=== PATIENT | female | born 1955 | race Caucasian/White ===

== ENCOUNTER 2022-05-14 17:22 | Inpatient (IN) | payer OTHER ==
[~2022-05-14] VITALS: Ht 172.7 cm; Wt 57.2 kg
[2022-05-14 17:25] VITALS: BP_SYST 120
--- NOTE | 2022-05-14 17:25 | NUR ---
Patient triaged ON [place]. VSS and patient appears in no acute distress at this time. Accompanied by EMT'S , awaiting available bed, and MD notified of need for MSE.
[2022-05-14] MEDS ORDERED: NACL 0.9% 1,000 ML IV ONE ×2 (18:15→20:45)
[2022-05-14] MEDS ORDERED: KETOROLAC TROMETHAMINE 30 MG VIAL IVP ONE (18:15)
--- NOTE | 2022-05-14 18:30 | NUR ---
RECEIVED PT FROM PAIGE PERSON. PT HAS RECTAL PROLAPSE AND PAIN 9.10. RESP E/U. ON R/A. ABDOMEN SOFT, NONTENDER, NONDISTENDED. DENIES N/V. SKIN CDI, NO EDEMA. DISTAL PULSES NORMAL. IV CATH PLACED TO LFA 22G.
--- NOTE | 2022-05-14 18:35 | NUR ---
DR. SUNG AT BEDSIDE, ATTEMPTED TO PUSH IN PROLAPSE, BUT IT WOULD NOT MANTAIN POSITION.
[2022-05-14 18:37] LABS: BASOPHILS % (AUTO) 0.4 % (0.0-2.0); EOSINOPHILS # (AUTO) 0.1 K/uL (0.0-0.4); EOSINOPHILS % (AUTO) 1.5 % (0.0-4.0); HEMATOCRIT 32.9 % (36-48); HEMOGLOBIN 10.8 g/dL (12.0-16.0); LYMPHOCYTES # (AUTO) 0.3 K/uL (1.0-5.5); LYMPHOCYTES % (AUTO) 4.7 % (20.5-51.5); MEAN CORPUSCULAR HEMOGLOBIN 30 pg (27-31); MEAN CORPUSCULAR HGB CONC 33 % (32-36); MEAN CORPUSCULAR VOLUME 93 fL (79.0-98.0); MONOCYTES # (AUTO) 0.9 K/uL (0.0-1.0); MONOCYTES % (AUTO) 12.6 % (1.7-9.3); NEUTROPHILS # (AUTO) 5.6 K/uL (1.8-7.7); NEUTROPHILS % (AUTO) 80.8 % (40.0-70.0); PLATELET COUNT (AUTO) 275 K/uL (130-430); RED BLOOD CELL COUNT(AUTO) 3.55 MIL/uL (4.2-6.2); RED CELL DISTRIBUTION WIDTH 15.1 % (9.0-15.0); WHITE BLOOD COUNT (AUTO) 6.9 K/uL (4.8-10.8)
--- NOTE | 2022-05-14 18:37 | NUR ---
Placed in room 8 . Placed on satellite project site monitor, blood pressure machine and pulse oximeter. To gown for exam. Side rails up. Report given to PAIGE CROSS.
[2022-05-14 18:57] LABS: CALCIUM 9.8 mg/dL (8.4-11.0); CREATININE 0.79 mg/dL (0.55-1.30)
[2022-05-14 19:03] LABS: ALBUMIN 2.9 g/dL (3.4-4.8)
[2022-05-14 19:19] LABS: TOTAL BILIRUBIN 0.2 mg/dL (0.0-1.0)
--- NOTE | 2022-05-14 19:21 | NUR ---
PT ENDORSED TO PAIGE CRONIN.
[2022-05-14] MEDS ORDERED: MORPHINE 2 MG/ML INJ. SYRINGE IVP ONE ×2 (19:30→20:45)
--- NOTE | 2022-05-14 20:30 | NUR ---
PT AMBULATED TO THE RESTROOM, STEADY GAIT, NAD.
--- NOTE | 2022-05-14 21:08 | NUR ---
# 16 FR Monzon catheter with use of sterile technique. Immediate return of 500 cc YELLOW urine noted. Bedside drainage bag placed below level of bladder. Urine sample collected and sent to lab. Pt tolerated procedure WELL.
[2022-05-14 21:24] LABS: BILIRUBIN,URINE NEGATIVE (NEGATIVE); COLOR,URINE YELLOW (YELLOW); GLUCOSE,URINE NEGATIVE (NEGATIVE); KETONES,URINE NEGATIVE (NEGATIVE); LEUKOCYTE ESTERASE ,URINE 3+ (NEGATIVE); NITRITE, URINE POSITIVE (NEGATIVE); PROTEIN URINE TRACE (NEGATIVE); UROBILINOGEN,URINE 0.2 (0.2-1.0)
[2022-05-14 21:34] LABS: BLOOD, URINE TRACE (NEGATIVE); CLARITY/URINE HAZY (CLEAR)
[2022-05-14 21:35] LABS: BACTERIA,URINE FEW /HPF (None Seen); RBC,URINE NONE SEEN /HPF (0-3); WBC,URINE 50-80 /HPF (0-3)
[2022-05-14 21:36] LABS: MUCUS,URINE None Seen /LPF (None Seen)
--- NOTE | 2022-05-14 21:57 | NUR ---
Admit bed requested Patient will be admitted to care of Dr. DE JESUS. Admitted to MED SURG unit. Diagnosis COMPLETE RECTAL PROLAPSE Inpatient (Yes or No) YES Observation (Yes or No) NO Orientation concerns or request close to nursing station (Yes or No) NO Covid Status NEG On vent or bipap NO Isolation requirements NONE Needs a sitter NO From Home (Yes or if No enter name of facility) [facility] Requires Dialysis (Yes or No) NO Med Rec Completed (Yes of No) YES
--- NOTE | 2022-05-14 21:59 | NUR ---
Medication reconciliation UNABLE TO BE completed. NO PACKET SENT WITH PATIENT.
--- NOTE | 2022-05-14 22:33 | NUR ---
Transfer to [facility]. IV present no sign or symptom of infiltration. REPORT GIVEN TO DANIEL GIBSON, MOSES SENT WITH PATIENT
--- NOTE | 2022-05-14 22:33 | NUR ---
MRSA collected and sent to lab.
--- NOTE | 2022-05-14 23:15 | NUR ---
66 YO FEMALE PT RECEIVED FROM ER VIA [facility] WITH CHIEF COMPLAINT OF RECTAL PAIN AND DX OF COMPLETE RECTAL PROLAPSE. A/OX4. C/O SEVERE RECTAL PAIN. LARGE PINK/RED COLORED ROUND MASS EXTRUDING FROM RECTUM. ZAMORA TO GRAVITY FLOW WITH CLEAR DAVID URINE. LFA 22 GA WITH NS FINISHING PER GRAVITY DRIP. PT ARRIVING TO [place] BY WAY OF VENANCIO BOGGS. STATES SHE LIVES AT HOME AND DAUGHTER AND SON EAR TAKE 2 WEEKS TO STAY WITH HER AN ATTEND TO HER NEEDS. MONITOR AND ASSIST NEEDED.
[2022-05-14 23:27] VITALS: BP_SYST 140
[2022-05-14] MEDS: HYDROcodone/ACETAMIN 5-325 MG TAB (NORCO/ VICODIN) PO PRN (23:43)
[2022-05-15] VITALS: BP_SYST 137
--- NOTE | 2022-05-15 00:02 | NUR ---
CALL PLACED TO DR. DE JESUS CONCERNING MEDICINE ORDER FOR SEVERE PAIN AND MEDICATION RECON.
--- NOTE | 2022-05-15 01:50 | NUR ---
INFORMED HOUSE JASSON MÉNDEZ RETURN CALL FROM [employer]. INQUIRED IF THERE WERE A 2ND MD IN [place] OF COMMAND THAT COULD BE CONTACTED FOR MEDICATION ORDER FOR SEVERE PAIN FOR PT OR IF ER MD ABLE TO PRESCRIBE A ONE TIME ORDER. INFORMED BY JASSON "NO, KEEP CALLING [employer]". PT INFORMED. PROVIDED COMFORT MEASURES. ASSISTED TO BSC. HECTOR-CARE GIVEN. BACK TO BED. PT ATTEMPTING TO REST.
--- NOTE | 2022-05-15 02:00 | NUR ---
2ND CALL PLACED TO . NO RETURN CALL THUS FAR.
--- NOTE | 2022-05-15 04:00 | NUR ---
LIZA LOGAN RETURNED CALL. MEDS RECONCILED.
--- NOTE | 2022-05-15 04:10 | NUR ---
PT INFORMED NO MORPHINE APPROVED FOR SEVERE PAIN.
[2022-05-15] MEDS: ACETAMINOPHEN 650 MG/20.3 ML UDC PO SCH ×5 (04:30→20:30)
[2022-05-15] MEDS ORDERED: ACETAMINOPHEN 650 MG/20.3 ML UDC PO PRN (04:30)
[2022-05-15] MEDS ORDERED: TYLL650 PO (05:53)
[2022-05-15] MEDS ORDERED: DOCU-144 PO (05:53)
[2022-05-15] MEDS ORDERED: ANT30 PO (05:53)
[2022-05-15] MEDS ORDERED: SIN25 PO (05:53)
[2022-05-15] MEDS ORDERED: GABA-533 PO (05:53)
[2022-05-15] MEDS ORDERED: DIPH25CA83 PO ×2 (05:53)
[2022-05-15] MEDS ORDERED: IBUP-1970 PO (05:53)
[2022-05-15] MEDS ORDERED: MAGN24002 PO (05:53)
[2022-05-15] MEDS ORDERED: LORA-259 PO (05:53)
[2022-05-15] MEDS ORDERED: PRO40 PO (05:53)
[2022-05-15] MEDS ORDERED: DEUT6TAB PO (05:53)
[2022-05-15] MEDS ORDERED: QUET300T2 PO (05:53)
[2022-05-15] MEDS ORDERED: SER100 PO (05:53)
[2022-05-15] MEDS ORDERED: QUET200T PO (05:53)
--- NOTE | 2022-05-15 06:19 | NUR ---
CONSULTATION PAGED/CALLED Reason for Consultation: COMPLETE RECTAL PROLAPSE Person Who was Notified: ROSETTE Consulting Physician: TAYLA ANDREWS Equipment Services Associate Specialty: SURGEON Ordering Physician: DR. DE JESUS
[2022-05-15] MEDS: IBUPROFEN 800 MG TABLET PO PRN ×2 (06:51→14:43)
[2022-05-15] MEDS: QUEtiapine FUMARATE 100 MG TABLET PO SCH ×3 (06:52→20:24)
[2022-05-15] MEDS: LORazepam 1 MG TABLET PO SCH ×3 (06:52→20:24)
--- NOTE | 2022-05-15 07:00 | NUR ---
PT MED. WITH 0900 DOSE OF SEROQUEL, ATIVAN AND PRN MOTRIN. WILL ENDORSE TO A.M NURSE.
[2022-05-15 07:54] VITALS: BP_SYST 138
[2022-05-15] MEDS: GABAPENTIN 400 MG CAPSULE PO SCH ×3 (08:14→20:24)
[2022-05-15] MEDS: PANTOPRAZOLE SODIUM 40 MG TAB PO SCH (08:14)
[2022-05-15] MEDS: DOCUSATE SODIUM 100 MG CAPSULE PO SCH ×2 (08:14→20:23)
[2022-05-15 11:27] VITALS: BP_SYST 110
[2022-05-15] MEDS: HYDROcodone/ACETAMIN 5-325 MG TAB (NORCO/ VICODIN) PO PRN (11:49)
[2022-05-15] MEDS ORDERED: NALOXONE HCL 0.4 MG/ML AMP (NARCAN) IVP PRN (13:30)
[2022-05-15] MEDS ORDERED: MAGNESIUM HYDROXIDE 2400 MG PO PRN (13:30)
[2022-05-15] MEDS ORDERED: MILK OF MAGNESIA 30 ML UDC PO PRN (14:00)
--- NOTE | 2022-05-15 14:56 | NUR ---
0730 Pt. in bed, asleep, vss, call light in reach 0900 PT. given tylenol for pain, page to MD for stronger pain meds, pt. states the tylenol is not helping [address] Davalos, he is not going to give pt. any more pain meds, surgical consult by Dr. Burgos has been ordered. 1400 Pt. given afternoon meds and Motrin 800mg for pain, call liight in reach, vss.
[2022-05-15 15:32] VITALS: BP_SYST 118
[2022-05-15] MEDS: DIPHENHYDRAMINE HCL 25 MG CAPSULE PO PRN ×2 (17:08→20:56)
--- NOTE | 2022-05-15 18:25 | NUR ---
1800 Pt. met brandt Burgos, pt. to have colonoscopy tomorrow, prep to start tonight, npo after MN. PT. resting quietly, call light in reach.
[2022-05-15 20:00] VITALS: BP_SYST 122
[2022-05-15] MEDS: DOXEPINE (SINEQUAN) 25 MG CAP PO SCH (20:24)
[2022-05-15] MEDS ORDERED: GOLYTELY / COLYTE SOLUTION 4 LITERS PO ONE (20:30)
[2022-05-15] MEDS ORDERED: GOLYTELY / COLYTE SOLUTION 4 LITERS ONE (20:59)
[2022-05-15] MEDS: DEUTETRABENAZINE PO SCH (21:00)
[2022-05-15] MEDS ORDERED: DEUTETRABENAZINE PO SCH (21:00)
--- NOTE | 2022-05-15 22:00 | NUR ---
AIDA OBTAINED FROM [employer]. COLONOSCOPY PROTOCOL BEGAN. PT STATED PREFERS NOT HAVE COLONOSCOPY BUT HAVE PROLAPSED RECTUM CORRECTED ONLY. INSPITE PT DRINKING FLUID AND VENTING "HOW TERRIBLE THIS IS!"
--- NOTE | 2022-05-16 00:14 | NUR ---
PT STATED AT THIS TIME. "I AM NOT GOING TO HAVE THE COLONOSCOPY. CALL MY DOCTOR AND LET HIM KNOW...NO WAY AM I DRINKING ALL THAT."
--- NOTE | 2022-05-16 00:20 | NUR ---
DR COSTELLO INFORMED PT REFUSES TO COMPLETE PROTOCOL ORDERED BUT DOES EXPECT TO HAVE RECTAL PROLAPSE CORRECTED. INFORMED NURSE THAT THE PROTOCOL WILL BE FOLLOWED ORDERED AND RECTAL PROLAPSE PROCEDURE PERFORMED BUT NOT ONE OR THE OTHER.
[2022-05-16] MEDS: ACETAMINOPHEN 650 MG/20.3 ML UDC PO SCH ×5 (00:30→16:30)
--- NOTE | 2022-05-16 00:30 | NUR ---
PT INFORMED OF DOCTOR PRAVIN'S RESPONSE TO HER DECISION TO NOT COMPLETE PROTOCOL. PT QUICKLY STATED "OK I WILL DRINK THE FLUIDS AND COMPLETE IT SO I CAN HAVE THIS RECTAL PROBLEM FIXED.
--- NOTE | 2022-05-16 03:30 | NUR ---
NOTED PT STATED "I'M ALMOST FINISHED". UPON CLOSE INSPECTION NOTED PT FLOOR SATURATED WITH CLEAR FLUID ON SIDES AND HEAD OF BED SO MUCH SO MY SNEAKERS WERE WALKING IN A HUGE PUDDLE THAT SEEPED UNDER THE BASE BOARDS. I TOLD THE PT HER GOLYTELY WAS ON THE FLOOR INSTEAD OF IN HER BODY. PT WAS ADAMANT THAT SHE DRANK IT "ALL"...WELL THAT WAS UNTILL A FEW MINUTES LATER I BEGAN TO CLEAR OFF HER NIGHT STAND. LOW AND FARRAH WHEN I OPENED THE TOP DRAWER TO PLACE SOME ARTICLES INSIDE THERE WAS FREE WATER SLOSHING AROUND INSIDE THE DRAWER! I LOOKED AT THE PT AND SAID TO HER THIS IS WHERE YOUR FLUIDS HAVE GONE INSTEAD OF IN YOUR BODY ISN'T IT TRUE. SHE SOMEWHAT CONFESSED AND SAID..."BUT I DRANK 'MOST' OF IT...WILL THE DOCKTOR STILL DO THE PROCEDURE?" INFORMED CHARGE NURSE OF THE EVENTS. WILL CONTINUE WITH PREP THOU SHE IS GOING. REMAINS NPO, CHECKLIST AND CHG BATH BEFORE SHIFT END AND ENDORSE TO ON-COMING NURSE.
[2022-05-16 04:00] VITALS: BP_SYST 118
--- NOTE | 2022-05-16 07:30 | NUR ---
PM CLOSING NOTES REPORTED ON A.M NURSE PT NON-COMPLIANT WITH COLONOSCOPY PREP BUT FOLLOWED THRU IN KEEPING HER NPO, CHG COMPLETED AND CHECKLIST DONE. INFORMED HER MD AWARE OF PT REFUSAL OF FLUIDS. ALSO INFORMED OF PT REFUSAL TO USE CALL LIGHT FOR ASST ON BSC AND IS AN EXTREMELY HIGH RISK FOR FALL, INSPITE OF MYSELF,CHARGE NURSE, AND RAMANA CATCHING HER GETTING OOB HAPHAZARDLY TRANSFERING TO BSC ALONE WITH ALARM SOUNDING. 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 RELINQUISHED CARE OF PT AT THIS TIME.
[2022-05-16 08:00] VITALS: BP_SYST 100
--- NOTE | 2022-05-16 08:00 | NUR ---
Initial notes Awake,complain of pain on her back,lower abdomen. will medicate.No distress
[2022-05-16] MEDS: QUEtiapine FUMARATE 100 MG TABLET PO SCH ×3 (08:21→21:00)
[2022-05-16] MEDS: PANTOPRAZOLE SODIUM 40 MG TAB PO SCH (08:21)
[2022-05-16] MEDS: GABAPENTIN 400 MG CAPSULE PO SCH ×3 (08:21→21:00)
[2022-05-16] MEDS: LORazepam 1 MG TABLET PO SCH ×3 (08:22→21:00)
[2022-05-16] MEDS: HYDROcodone/ACETAMIN 10-325 MG TAB PO PRN ×2 (08:23→12:29)
[2022-05-16] MEDS: DEUTETRABENAZINE PO SCH ×2 (08:24→21:00)
[2022-05-16] MEDS: DOCUSATE SODIUM 100 MG CAPSULE PO SCH ×2 (08:24→21:00)
[2022-05-16] MEDS ORDERED: GOLYTELY / COLYTE SOLUTION 4 LITERS PO ONE (10:00)
--- NOTE | 2022-05-16 11:30 | NUR ---
Notes Ernestoly Started.
[2022-05-16 12:00] VITALS: BP_SYST 125
--- NOTE | 2022-05-16 13:49 | NUR ---
Notes Patient s been drinking the golytely, has incontinent of stool. cleaned patient and repositioned.
[2022-05-16 16:00] VITALS: BP_SYST 140
[2022-05-16] MEDS: IBUPROFEN 800 MG TABLET PO PRN (16:38)
--- NOTE | 2022-05-16 17:17 | NUR ---
Dietitian Recommendations * Continue CLD, per MD * Encourage good PO * When medically appropriate, advance to GI soft Diet + ONS TID * Recommend daily MVI Please refer to Nutrition Assessment for details, thanks! CC, MPH, RDN
--- NOTE | 2022-05-16 17:33 | NUR ---
Notes/ Golytely Patient is drinking her golytely, stool is loose but still with sediments. Patient drinks about 2L already.
[2022-05-16] MEDS: OXYCODONE/ACETAMINOPHEN 5-325 TABLET PO PRN (18:32)
--- NOTE | 2022-05-16 19:30 | NUR ---
PM OPENING NOTES HAND-OFF REPORT FROM JORDYN REYNOSO: REPORTED DR. COSTELLO STARTED ON GOLYTLEY AT NOON. BM LOOSE WITH SEDIMENTATION. PT COMPLIANT IN TAKING DRINK. FLOOR REMAINS DRY THRU OUT DAY. ZAMORA DISLOGED AND REPLACED. DR. HO NOW ON CASE NOT KADHIUM. NPO AFTER MIDNIGHT FOR COLONOSCOPY IN A.M UA POSITIVE MANY BACTERIA. PT RECEIVED LOOSE STOOLS WITH FRQUENT BED CHANGES. COMPLIANT IN NOT GETTING OOB. CONT TO ASSIST.
[2022-05-16 20:00] VITALS: BP_SYST 138
[2022-05-16] MEDS: DOXEPINE (SINEQUAN) 25 MG CAP PO SCH (21:00)
[2022-05-17] VITALS (7 sets, daily range): BP systolic 118–155
--- NOTE | 2022-05-17 08:00 | NUR ---
INITIAL NOTES AWAKE, COMPLAINS OF LOWER ABDOMINAL PAIN, KEEP NPO FOR COLONOSCOPY TODAY. SAFETY PRECAUTION, CALL LIGHT WITHIN REACH.
[2022-05-17] MEDS: OXYCODONE/ACETAMINOPHEN 5-325 TABLET PO PRN ×3 (08:45→22:18)
[2022-05-17] MEDS: LORazepam 1 MG TABLET PO SCH ×3 (08:45→22:15)
[2022-05-17] MEDS: PANTOPRAZOLE SODIUM 40 MG TAB PO SCH (08:47)
[2022-05-17] MEDS: GABAPENTIN 400 MG CAPSULE PO SCH ×3 (08:47→22:15)
[2022-05-17] MEDS: DOCUSATE SODIUM 100 MG CAPSULE PO SCH ×2 (08:47→22:15)
[2022-05-17] MEDS: DEUTETRABENAZINE PO SCH ×2 (08:47→21:00)
[2022-05-17] MEDS: QUEtiapine FUMARATE 100 MG TABLET PO SCH ×3 (09:00→22:16)
[2022-05-17 09:51] LABS: CALCIUM 8.5 mg/dL (8.4-11.0); CREATININE 0.63 mg/dL (0.55-1.30)
--- NOTE | 2022-05-17 10:43 | NUR ---
HIGH ALERT NOTE: Called Dr. Vega back at identified within the medical roster to verify physician authenticity.
[2022-05-17] MEDS ORDERED: POTASSIUM CHLORIDE 40 MEQ in NS 250 ML IV ONE (10:45)
[2022-05-17] MEDS ORDERED: POTASSIUM CHLORIDE 20 MEQ TAB.PRT.SR PO ONE (10:45)
[2022-05-17] MEDS: IBUPROFEN 800 MG TABLET PO PRN (11:11)
--- NOTE | 2022-05-17 11:20 | NUR ---
SEGUNDO LOGAN- SPOKE TO DR. COSTELLO AND MADE AWARE TO CALL OR IF HE WANTS TO SCHEDULE COLONOSCOPY TODAY. ALSO MADE AWARE THAT PATIENT IS NPO EXCEPT MEDS AND MADE AWARE OF LABS.
[2022-05-17] MEDS: KCL 20 mEq in D5/0.45NS 1000mL 1,000 ML IV SCH (11:46)
[2022-05-17] MEDS: cefTRIAXone 1 GM in D5W 50 ML IV SCH (13:01)
--- NOTE | 2022-05-17 13:15 | NUR ---
PAGED PAGEMaurice VILLATORO REGARDING PT'S DIET. AWAITING RESPONSE.
--- NOTE | 2022-05-17 14:22 | NUR ---
Notes- colonoscopy will be done tomorrow 05/20/22 at 1330. will order clear liquid diet as ordered.
--- NOTE | 2022-05-17 18:37 | NUR ---
CLOSING NOTE PT IN BED EATING DINNER. BREATHING EVEN, REGULAR, AND NONLABORED WITH O2 VIA NC. IV RUNNING ORDERED WITH SITE KEPT CLEAN AND PATENT. ZAMORA CATHETER DRAINING BY GRAVITY. ENCOURAGE TO USE THE CALL LIGHT FOR ASSISTANCE. SAFETY PRECAUTION IN PLACED. CALL LIGHT WITHIN REACH
[2022-05-17] MEDS ORDERED: LevALBUTEROL HCL 1.25 MG/0.5 ML *CONC.* VIAL.NEB (XOPENEX CONC.) INH ONE (20:00)
--- NOTE | 2022-05-17 20:00 | NUR ---
PM OPENING NOTES HAND-OFF REPORT RECEIVED FROM A.M. NURSE. REPORTED COLONOSCOPY IN A.M., NPO AFTER MN. POTASSIUM 2.9. 80 MEQ REPLACED. (40 PO AND 40 IV). D51/2 NS WITH 20 KCL @75. ZAMORA CONTINUED TO GRAVITY FLOW. ROCEPHIN STARTED FOR UTI. CLEAR LIQUIDS PRESENTLY. PT REQUESTING BREATHING TREATMENTS FOR SMOKERS COUGH. RECEIVED AOX3 IN BED. CONTINUES TO EXPELS MUCOID LIGHT COLORED STOOLS. CONT WITH PREP AND PROTOCOL. ON SCHEDULE FOR APPROX 1300 TOMORROW.
[2022-05-17] MEDS: DIPHENHYDRAMINE HCL 25 MG CAPSULE PO PRN (22:13)
[2022-05-17] MEDS: DOXEPINE (SINEQUAN) 25 MG CAP PO SCH (22:16)
[2022-05-18] MEDS: KCL 20 mEq in D5/0.45NS 1000mL 1,000 ML IV SCH ×2 (00:05→14:33)
[2022-05-18] MEDS: LevALBUTEROL HCL 1.25 MG/0.5 ML *CONC.* VIAL.NEB (XOPENEX CONC.) INH SCH ×3 (02:21→15:00)
[2022-05-18 04:00] VITALS: BP_SYST 113
--- NOTE | 2022-05-18 07:30 | NUR ---
PM CLOSING NOTES HAND-OFF REPORT TO A.M ON COMING NURSE. INFORMED CHECKLIST NEED FINAL V/S AND CHG BATH CLOSER SCHEDULED TIME. PT QUIETLY RESTING IN BED. BED ALRM ON ALL TIMES. RELINQUISHING CARE OF PT AT THIS TIME.
--- NOTE | 2022-05-18 08:00 | NUR ---
Opening Note: Received report from PAIGE Rene. Pt. is AAOX4 no signs of acute distress. Pt. has a grapefruit sized rectal protrusion which is pink and moist, no bleeding. Pt. is reporting pain and MD has been paged for PRN medications. Fall precautions in place, bed locked and in lowest position, bed alarm on, side rails x3 and call light is within reach.
[2022-05-18 08:02] LABS: CALCIUM 8.5 mg/dL (8.4-11.0); CREATININE 0.65 mg/dL (0.55-1.30); PHOSPHORUS 3.1 mg/dL (2.7-4.5)
[2022-05-18 08:23] VITALS: BP_SYST 120
[2022-05-18] MEDS: QUEtiapine FUMARATE 100 MG TABLET PO SCH ×3 (09:00→23:17)
[2022-05-18] MEDS: DEUTETRABENAZINE PO SCH ×2 (09:00→21:00)
[2022-05-18] MEDS: GABAPENTIN 400 MG CAPSULE PO SCH ×3 (09:00→23:17)
[2022-05-18] MEDS: DOCUSATE SODIUM 100 MG CAPSULE PO SCH ×2 (09:00→23:17)
[2022-05-18] MEDS: PANTOPRAZOLE SODIUM 40 MG TAB PO SCH ×2 (09:00→14:27)
--- NOTE | 2022-05-18 09:39 | NUR ---
HIGH ALERT NOTE: Called Dr. DE JESUS back at [phone] identified within the medical roster to verify physician authenticity.
[2022-05-18] MEDS ORDERED: MORPHINE 2 MG/ML INJ. SYRINGE IVP ONE (09:45)
[2022-05-18] MEDS: LevALBUTEROL HCL 1.25 MG/0.5 ML *CONC.* VIAL.NEB (XOPENEX CONC.) INH PRN (10:12)
[2022-05-18] MEDS: LORazepam 1 MG TABLET PO SCH ×3 (10:12→21:00)
[2022-05-18] MEDS: cefTRIAXone 1 GM in D5W 50 ML IV SCH (12:10)
--- NOTE | 2022-05-18 12:30 | NUR ---
GAS AND OIL SERVICER ACSW Camila consulted with assigned RN Marlene who shared patient's daughter in law Anel and son Dieter had disclosed to RN patient has been evicted from her condo in [place]. ACSW attempted to meet with patient, due to patient's hosptial roommate needing privacy at the moment, ACSW will attempt contact at a later time. ACSW will continue to be available as needed.
--- NOTE | 2022-05-18 12:38 | NUR ---
FREIGHT ASSOCIATE ACSW Camila contacted Moriah Cunningham to inquire into status of patient. According to Angelica in intake, patient was not on a hold and officially discharged once admitted into [facility]. ACSW attempted to obtain additional pertinent information related to mental health, but she shared due to being in intake she did not have that information at this time. Angelica shared if patient felt continued need for inpatient psych services, a packet would need to be sent for review when ready for discharge. ACSW will continue to be available as needed.
--- NOTE | 2022-05-18 12:39 | NUR ---
pt. has left for colonoscopy, no signs of acute distress, aaox4 being transported by [facility].
[2022-05-18 12:46] VITALS: BP_SYST 153
[2022-05-18] MEDS ORDERED: fentaNYL CITRATE/PF 100 MCG/2 ML AMP ONE (12:52)
[2022-05-18] MEDS ORDERED: MIDAZOLAM HCL 5 MG/5 ML VIAL ONE ×2 (12:52→13:14)
[2022-05-18 14:05] LABS: HEMATOCRIT 31.8 % (36-48); HEMOGLOBIN 10.4 g/dL (12.0-16.0); MEAN CORPUSCULAR HEMOGLOBIN 31 pg (27-31); MEAN CORPUSCULAR HGB CONC 33 % (32-36); MEAN CORPUSCULAR VOLUME 94 fL (79.0-98.0); PLATELET COUNT (AUTO) 245 K/uL (130-430); RED BLOOD CELL COUNT(AUTO) 3.39 MIL/uL (4.2-6.2); RED CELL DISTRIBUTION WIDTH 14.9 % (9.0-15.0); WHITE BLOOD COUNT (AUTO) 3.9 K/uL (4.8-10.8)
[2022-05-18 14:06] LABS: BASOPHILS % (AUTO) 1.3 % (0.0-2.0); EOSINOPHILS # (AUTO) 0.1 K/uL (0.0-0.4); EOSINOPHILS % (AUTO) 2.2 % (0.0-4.0); LYMPHOCYTES # (AUTO) 0.9 K/uL (1.0-5.5); LYMPHOCYTES % (AUTO) 24.3 % (20.5-51.5); MONOCYTES # (AUTO) 0.5 K/uL (0.0-1.0); MONOCYTES % (AUTO) 13.5 % (1.7-9.3); NEUTROPHILS # (AUTO) 2.3 K/uL (1.8-7.7); NEUTROPHILS % (AUTO) 58.7 % (40.0-70.0)
[2022-05-18] MEDS: IBUPROFEN 800 MG TABLET PO PRN (14:25)
[2022-05-18] MEDS: OXYCODONE/ACETAMINOPHEN 5-325 TABLET PO PRN ×2 (14:26→23:19)
[2022-05-18 15:35] VITALS: BP_SYST 146
--- NOTE | 2022-05-18 16:27 | NUR ---
Mid shift Note: Pt. is AAOx4, pain is being managed by prn pain medication. Colonoscopy was completed today and tomorrow pt. is scheduled for further surgery. Pt. still has grapefruit sized protrusion from rectal area which is pink and moist. Fall precautions in place and pt. is tolerating a clear liquid diet.
[2022-05-18] MEDS ORDERED: NALOXONE HCL 0.4 MG/ML AMP (NARCAN) IVP PRN (16:30)
--- NOTE | 2022-05-18 19:41 | NUR ---
Closing Note: Full SBAR report given to PAIGE Rene. Pt. is AAOx4 no reports of pain at this time. Fall precautions in place.
[2022-05-18 20:00] VITALS: BP_SYST 132
[2022-05-18] MEDS: DIPHENHYDRAMINE HCL 25 MG CAPSULE PO PRN (23:17)
[2022-05-18] MEDS: DOXEPINE (SINEQUAN) 25 MG CAP PO SCH (23:17)
[2022-05-19 00:23] VITALS: BP_SYST 106
[2022-05-19] MEDS: LevALBUTEROL HCL 1.25 MG/0.5 ML *CONC.* VIAL.NEB (XOPENEX CONC.) INH SCH ×4 (01:18→23:24)
[2022-05-19 04:00] VITALS: BP_SYST 132
--- NOTE | 2022-05-19 07:29 | NUR ---
Opening Note: Received full SBAR report from PAIGE Rene. Pt. is AAOx3 but needs re-orientation on the date. Pt. is impulsive and has been educated on fall precautions. Fall precautions in place, brake set, bed rails up x3, call light within reach and bed alarm set. Rectal protrusion is visible, pink and moist and about the size of a grapefruit.
[2022-05-19 08:30] VITALS: BP_SYST 115
[2022-05-19] MEDS: DEUTETRABENAZINE PO SCH ×2 (09:00→20:52)
[2022-05-19] MEDS: OXYCODONE/ACETAMINOPHEN 5-325 TABLET PO PRN (10:24)
[2022-05-19] MEDS: QUEtiapine FUMARATE 100 MG TABLET PO SCH ×3 (10:24→20:50)
[2022-05-19] MEDS: DOCUSATE SODIUM 100 MG CAPSULE PO SCH ×2 (10:24→20:52)
[2022-05-19] MEDS: PANTOPRAZOLE SODIUM 40 MG TAB PO SCH (10:24)
[2022-05-19] MEDS: LORazepam 1 MG TABLET PO SCH ×3 (10:25→20:51)
[2022-05-19] MEDS: GABAPENTIN 400 MG CAPSULE PO SCH ×3 (10:25→20:51)
[2022-05-19] MEDS: MORPHINE 2 MG/ML INJ. SYRINGE IVP PRN ×2 (11:58→17:03)
[2022-05-19 14:05] VITALS: BP_SYST 127
[2022-05-19] MEDS: IBUPROFEN 800 MG TABLET PO PRN (14:36)
[2022-05-19] MEDS: KCL 20 mEq in D5/0.45NS 1000mL 1,000 ML IV SCH (14:37)
[2022-05-19] MEDS: cefTRIAXone 1 GM in D5W 50 ML IV SCH (14:40)
--- NOTE | 2022-05-19 17:30 | NUR ---
Nutrition F/U Admitting Diagnosis Complete Rectal Prolapse Reviewed Pertinent Medical/Surgical Hx Medical Record Primary RN Medical History Comment: Per EMR: 66y female who transferred from [facility] for evaluation/ treatment of rectal prolapse. Patient found with anemia and COPD. Patient is pending colonoscopy and prolapse treatment. Visual NFPE completed d/t patient falling asleep during interview plus seen with blankets covering the bottom half of her body: Moderate - Severe fat loss: orbitals and triceps Moderate - Severe muscle wasting: temples, clavicles, and shoulders -- PMHx: long history of psychological disorder, chronic smoker -- Sx Hx: tummy tuck, silicone breast implants Subjective Information: Per EMR review, colonoscopy exam completed on 05/18/22 was unsatisfactory d/t improper cleaning of the bowel. Pt will need to be re-scoped after proper cleaning. Per MD, pt will continue to take medication and follow diet. During rounding, RD spoke with RN -- she reported that pt is to continue on clear liquid, no red diet until re-scope is complete, and possible plans for Sx next week. No current plans for nutrition support, RN will F/U with MD. Current Diet Order/Nutrition Support Clear Liquid, No red x4 days Patient/Significant Other Able To Verbalize Education Provided Not Indicated Pertinent Medications Reviewed Pertinent Labs RBC 3.5 (L), H/H 10.8/32.9 (L), BG 87, alb 2.9 (L) Height (Feet) 5 feet Height (Inches) 8.00 inches Weight (Pounds) 126 pounds -- stable since 05/16 Patient Weight 57.153 kg Body Mass Index 19.16 kg/m2 Usual Weight 150 lbs %UBW 84 %IBW 90 [place]/Adjusted Body Weight 140 lbs/ 64kg Recent Weight Change Yes - Severe wt loss: 16% (24 lbs) x 6 months, Unintentional Weight Status Underweight Gastrointestinal Symptoms Diarrhea Last BM 05/17 x2 Food Allergies No Usual Diet At Home Regular Skin Integrity Comment: Venancio Wilson: No problems identified via EMR Current % PO Fair (50-74%) NEW Estimated Energy Expenditure (kcals/day) 4131-4534 (30-35 kcal/kg IBW d/t GERIAT, BMI <21) Estimated Protein Required (g/day) 64-96 (1-1.5 g/kg IBW d/t GERIAT, BMI <21) NEW Estimated Fluid Required (l/day) 2-2.2 (1mL/kcal for maintenance) Problem/Etiology/Signs/Symptoms * Severe unintentional weight loss r/t suspected group home inadequate oral intake a/e/b patient endorses 24lb and 16% weight loss x 6 months. *Ongoing * Inadequate oral intake r/t clear liquid diet order a/e/b CLD provides 1531 kcal/day and 50g pro/day; 89% estimated energy needs and 78% estimated pro/day. *Ongoing Expected Outcomes/Goals PO intake provides >85% estimated nutrient needs, slow wt gain w/in 1-2lbs per wk, skin integrity, nutrition-related labs trending WNL, improvements in bowel function, BM q1-3 days Dietitian Recommendations * Continue clear liquid, no red diet, per MD * Encourage good PO * Consider alternative nutrition support if PO diet is not advanced within 7 days. * When medically appropriate, advance to GI soft Diet + ONS TID * Recommend daily MVI Follow Up High Risk: F/U in 2-3 days
--- NOTE | 2022-05-19 17:35 | NUR ---
Dietitian Recommendations * Continue clear liquid, no red diet, per MD * Encourage good PO * Consider alternative nutrition support if PO diet is not advanced within 7 days. * When medically appropriate, advance to GI soft Diet + ONS TID * Recommend daily MVI LP, MS, RD Please refer to Nutrition F/U for details.
--- NOTE | 2022-05-19 19:30 | NUR ---
PM OPENING NOTES HANDOFF REPORT RECEIVED FROM MACO GIBSON: "PT REMOVED IV RESTARTED IN LEFT THUMB BY ER NURSE AFTER MANY OTHERS ATTEMPTED. ORDER MIDLINE PLACEMENT FOR 05/20/22. SURGERY (NO CONSENT SPECIFIED YET) FOR SUNDAY OR .TO KEEP POTASSIUM GOING (IN SPITE K NOW 4.5) ALONG WITH CLEAR LIQUID DIET. CONTACT PRECAUTION FOR MRSA IN NARES.
[2022-05-19 20:00] VITALS: BP_SYST 131
[2022-05-19] MEDS: DOXEPINE (SINEQUAN) 25 MG CAP PO SCH (20:51)
[2022-05-19] MEDS: DIPHENHYDRAMINE HCL 25 MG CAPSULE PO PRN (20:51)
[2022-05-20 04:00] VITALS: BP_SYST 137
[2022-05-20] MEDS: KCL 20 mEq in D5/0.45NS 1000mL 1,000 ML IV SCH ×3 (05:21→18:45)
[2022-05-20] MEDS: OXYCODONE/ACETAMINOPHEN 5-325 TABLET PO PRN ×2 (05:27→17:06)
[2022-05-20] MEDS: LevALBUTEROL HCL 1.25 MG/0.5 ML *CONC.* VIAL.NEB (XOPENEX CONC.) INH SCH ×2 (07:00→15:00)
--- NOTE | 2022-05-20 07:30 | NUR ---
PM CLOSING NOTES HAND-OFF REPORT TO PEDRO GIBSON OF FORE-MENTIONED ITEMS. STRESSED THIS PATIENT IS MENTALLY UNABLE TO HOLD ONTO SIMPLE COMMANDS IE. "NOT TO GET OOB." MAKING HER A HAZARD TO HERSELF WITHOUT DIRECT OBSERVATION. RELINQUISHED CARE OF PT AT THIS TIME...
[2022-05-20 08:00] VITALS: BP_SYST 97
[2022-05-20] MEDS: MORPHINE 2 MG/ML INJ. SYRINGE IVP PRN (09:24)
[2022-05-20] MEDS: DOCUSATE SODIUM 100 MG CAPSULE PO SCH (09:25)
[2022-05-20] MEDS: LORazepam 1 MG TABLET PO SCH ×2 (09:25→17:18)
[2022-05-20] MEDS: GABAPENTIN 400 MG CAPSULE PO SCH ×2 (09:25→17:18)
[2022-05-20] MEDS: PANTOPRAZOLE SODIUM 40 MG TAB PO SCH (09:26)
[2022-05-20] MEDS: QUEtiapine FUMARATE 100 MG TABLET PO SCH ×2 (09:26→17:28)
[2022-05-20 11:30] VITALS: BP_SYST 107
[2022-05-20] MEDS: cefTRIAXone 1 GM in D5W 50 ML IV SCH (13:08)
[2022-05-20] MEDS: DEUTETRABENAZINE PO SCH ×2 (13:10→21:00)
[2022-05-20 15:21] VITALS: BP_SYST 120
[2022-05-20 20:00] VITALS: BP_SYST 129
[2022-05-21] MEDS: LevALBUTEROL HCL 1.25 MG/0.5 ML *CONC.* VIAL.NEB (XOPENEX CONC.) INH SCH ×4 (00:01→23:19)
[2022-05-21] MEDS: QUEtiapine FUMARATE 100 MG TABLET PO SCH ×5 (00:02→23:02)
[2022-05-21] MEDS: LORazepam 1 MG TABLET PO SCH ×4 (00:09→21:00)
[2022-05-21] MEDS: IBUPROFEN 800 MG TABLET PO PRN ×3 (00:11→23:00)
[2022-05-21] MEDS: DOXEPINE (SINEQUAN) 25 MG CAP PO SCH ×2 (00:12→22:58)
[2022-05-21] MEDS: GABAPENTIN 400 MG CAPSULE PO SCH ×4 (00:14→23:00)
[2022-05-21] MEDS: DOCUSATE SODIUM 100 MG CAPSULE PO SCH ×3 (00:14→22:58)
[2022-05-21] MEDS: DIPHENHYDRAMINE HCL 25 MG CAPSULE PO PRN ×2 (00:16→23:01)
[2022-05-21 04:51] VITALS: BP_SYST 95
[2022-05-21 08:00] VITALS: BP_SYST 112
[2022-05-21 08:26] LABS: PROTHROMBIN TIME 9.7 SECS (9.5-12.5)
[2022-05-21 08:34] LABS: BASOPHILS % (AUTO) 0.5 % (0.0-2.0); EOSINOPHILS # (AUTO) 0.2 K/uL (0.0-0.4); EOSINOPHILS % (AUTO) 5.1 % (0.0-4.0); HEMATOCRIT 32.2 % (36-48); LYMPHOCYTES # (AUTO) 1.3 K/uL (1.0-5.5); LYMPHOCYTES % (AUTO) 35.4 % (20.5-51.5); MEAN CORPUSCULAR VOLUME 91 fL (79.0-98.0); MONOCYTES # (AUTO) 0.5 K/uL (0.0-1.0); MONOCYTES % (AUTO) 12.8 % (1.7-9.3); NEUTROPHILS # (AUTO) 1.7 K/uL (1.8-7.7); NEUTROPHILS % (AUTO) 46.2 % (40.0-70.0); PLATELET COUNT (AUTO) 281 K/uL (130-430); RED BLOOD CELL COUNT(AUTO) 3.53 MIL/uL (4.2-6.2); RED CELL DISTRIBUTION WIDTH 14.5 % (9.0-15.0); WHITE BLOOD COUNT (AUTO) 3.7 K/uL (4.8-10.8)
[2022-05-21 09:00] LABS: CALCIUM 8.9 mg/dL (8.4-11.0); CREATININE 0.74 mg/dL (0.55-1.30); TOTAL BILIRUBIN 0.2 mg/dL (0.0-1.0)
[2022-05-21] MEDS: PANTOPRAZOLE SODIUM 40 MG TAB PO SCH (09:09)
[2022-05-21 09:16] VITALS: BP_SYST 95
[2022-05-21] MEDS: OXYCODONE/ACETAMINOPHEN 5-325 TABLET PO PRN ×2 (09:18→22:59)
[2022-05-21] MEDS: DEUTETRABENAZINE PO SCH ×2 (09:26→21:00)
[2022-05-21] MEDS: cefTRIAXone 1 GM in D5W 50 ML IV SCH (11:00)
[2022-05-21 16:31] LABS: INR 0.9 (0.8-1.2); PROTHROMBIN TIME 9.6 SECS (9.5-12.5)
[2022-05-21 20:00] VITALS: BP_SYST 128
[2022-05-22] VITALS: BP_SYST 93
[2022-05-22 05:05] VITALS: BP_SYST 98
[2022-05-22 07:34] LABS: BASOPHILS % (AUTO) 0.9 % (0.0-2.0); EOSINOPHILS # (AUTO) 0.3 K/uL (0.0-0.4); EOSINOPHILS % (AUTO) 7.4 % (0.0-4.0); HEMATOCRIT 30.5 % (36-48); LYMPHOCYTES # (AUTO) 1.7 K/uL (1.0-5.5); LYMPHOCYTES % (AUTO) 39.5 % (20.5-51.5); MEAN CORPUSCULAR VOLUME 91 fL (79.0-98.0); MONOCYTES # (AUTO) 0.5 K/uL (0.0-1.0); NEUTROPHILS # (AUTO) 1.7 K/uL (1.8-7.7); NEUTROPHILS % (AUTO) 40.2 % (40.0-70.0); PLATELET COUNT (AUTO) 303 K/uL (130-430); RED BLOOD CELL COUNT(AUTO) 3.36 MIL/uL (4.2-6.2); RED CELL DISTRIBUTION WIDTH 14.6 % (9.0-15.0); WHITE BLOOD COUNT (AUTO) 4.2 K/uL (4.8-10.8)
[2022-05-22 08:00] VITALS: BP_SYST 111
[2022-05-22 08:09] LABS: CALCIUM 8.9 mg/dL (8.4-11.0); CREATININE 0.69 mg/dL (0.55-1.30)
[2022-05-22] MEDS: LevALBUTEROL HCL 1.25 MG/0.5 ML *CONC.* VIAL.NEB (XOPENEX CONC.) INH SCH ×3 (08:40→23:00)
[2022-05-22] MEDS: QUEtiapine FUMARATE 100 MG TABLET PO SCH ×2 (09:03→12:55)
[2022-05-22] MEDS: GABAPENTIN 400 MG CAPSULE PO SCH ×3 (09:03→22:41)
[2022-05-22] MEDS: DOCUSATE SODIUM 100 MG CAPSULE PO SCH ×2 (09:03→22:40)
[2022-05-22] MEDS: PANTOPRAZOLE SODIUM 40 MG TAB PO SCH (09:03)
[2022-05-22] MEDS: LORazepam 1 MG TABLET PO SCH ×3 (09:04→22:42)
[2022-05-22] MEDS: OXYCODONE/ACETAMINOPHEN 5-325 TABLET PO PRN ×3 (09:04→22:41)
[2022-05-22] MEDS: KCL 20 mEq in D5/0.45NS 1000mL 1,000 ML IV SCH (10:45)
[2022-05-22] MEDS: cefTRIAXone 1 GM in D5W 50 ML IV SCH (11:00)
[2022-05-22] MEDS: DEUTETRABENAZINE PO SCH ×2 (11:13→21:00)
[2022-05-22 11:30] VITALS: BP_SYST 140
[2022-05-22 15:28] VITALS: BP_SYST 108
--- NOTE | 2022-05-22 17:03 | NUR ---
Nutrition F/U Admitting Diagnosis: Complete Rectal Prolapse Reviewed Pertinent Medical/Surgical Hx Medical Record; Patient Medical History Comment: Per EMR: 66y female who transferred from [facility] for evaluation/ treatment of rectal prolapse. Patient found with anemia and COPD. Patient is pending colonoscopy and prolapse treatment. Visual NFPE completed d/t patient falling asleep during interview plus seen with blankets covering the bottom half of her body: Moderate - Severe fat loss: orbitals and triceps; Moderate - Severe muscle wasting: temples, clavicles, and shoulders -- PMHx: long history of psychological disorder, chronic smoker -- Sx Hx: tummy tuck, silicone breast implants Subjective Information: Per EMR review, colonoscopy exam completed on 05/18/22 was unsatisfactory d/t improper cleaning of the bowel. Pt will need to be re-scoped after proper cleaning. Per MD, pt will continue to take medication and follow diet. During rounding, RD spoke with RN -- she reported that pt is to continue on clear liquid, no red diet until re-scope is complete, and possible plans for Sx next week. No current plans for nutrition support, RN will F/U with MD. -- 05/22: RD met with patient at bedside. Patient reports good appetite with avg PO intake per EMR noted at 73%. This provides 911 kcal per day and 20 g protein per day. While her appetite and avg PO % is good, current intake does not provide adequate calories or protein to meet pts nutritional needs. Patient continues on CLD s/p failed colonoscopy 05/18. Patient denies any n/v and is unsure of last BM. Last documented BM per EMR 05/18 x 2. Patient asking for food menu, discussed with patient CLD and informed her that she would be able to have more food variety once she is able to advance diet. Per MD notes, plan for sx today to repair grapefruit sized rectal prolapse. If diet is unable to advance within 1-2 days, the patient may require artificial nutrition support Current Diet Order/Nutrition Support: Clear Liquid, No red x4 days Height (Feet) 5 feet Height (Inches) 8.00 inches Weight (Pounds) 126 pounds -- stable since 05/16 Patient Weight 57.153 kg Body Mass Index 19.16 kg/m2 Usual Weight 150 lbs %UBW 84 %IBW 90 [place]/Adjusted Body Weight 140 lbs/ 64kg Recent Weight Change Yes - Severe wt loss: 16% (24 lbs) x 6 months, Unintentional Weight Status Underweight Gastrointestinal Symptoms None, per pt Last BM 05/18 x2 Food Allergies No Usual Diet At Home Regular Skin Integrity Comment: Venancio Migeul: No problems identified via EMR Current % PO 73% average x Fair (50-74%) NEW Estimated Energy Expenditure (kcals/day) 8845-4645 (30-35 kcal/kg IBW d/t GERIAT, BMI <21) Estimated Protein Required (g/day) 64-96 (1-1.5 g/kg IBW d/t GERIAT, BMI <21) NEW Estimated Fluid Required (l/day) 2-2.2 (1mL/kcal for maintenance) Problem/Etiology/Signs/Symptoms * Severe unintentional weight loss r/t suspected long-term inadequate oral intake a/e/b patient endorses 24lb and 16% weight loss x 6 months. *Ongoing * Inadequate oral intake r/t clear liquid diet order a/e/b CLD provides 1531 kcal/day and 50g pro/day; 89% estimated energy needs and 78% estimated pro/day. *Ongoing 73% PO provides 911 kcal and 20g protein per day. Expected Outcomes/Goals PO intake provides >85% estimated nutrient needs, slow wt gain w/in 1-2lbs per wk, skin integrity, nutrition-related labs trending WNL, improvements in bowel function, BM q1-3 days Dietitian Recommendations * Continue CL, no red diet, per MD * Encourage good PO * Consider alternative nutrition support if PO diet is not advanced within 1-2 days. * When medically appropriate, advance to GI soft Diet + ONS TID * Recommend daily MVI Follow Up High Risk: F/U in 2-3 days
--- NOTE | 2022-05-22 17:08 | NUR ---
Dietitian Recommendations * Continue CL, no red diet, per MD * Encourage good PO * Consider alternative nutrition support if PO diet is not advanced within 1-2 days. * When medically appropriate, advance to GI soft Diet + ONS TID * Recommend daily MVI Please refer to nutritional F/U for details, thanks! CC, MPH, RDN
--- NOTE | 2022-05-22 18:55 | NUR ---
Shift Summary: patient is AAOX3. vitals are stable. patient informed of planned surgery for tomorrow 05/23/22 at 1800. was endorse that patient did not have IV access. attempted to place IV access with no success. informed primary team and is aware of patient having no IV access. Midline order placed. patient currently resting. call light within reach. bed set to low and locked. [id number] done. patient educated to not attempt to get out of bed without staff present. will endorse to on coming nurse.
[2022-05-22 20:00] VITALS: BP_SYST 113
[2022-05-22] MEDS: DOXEPINE (SINEQUAN) 25 MG CAP PO SCH (22:40)
[2022-05-23] VITALS (18 sets, daily range): BP systolic 92–169
[2022-05-23] MEDS: KCL 20 mEq in D5/0.45NS 1000mL 1,000 ML IV SCH ×2 (00:05→13:25)
--- NOTE | 2022-05-23 08:01 | NUR ---
Report received from retail shift manager RN for continuity of care. Patient stable condition. No distress indicated.
[2022-05-23] MEDS: LevALBUTEROL HCL 1.25 MG/0.5 ML *CONC.* VIAL.NEB (XOPENEX CONC.) INH SCH ×3 (08:18→23:20)
[2022-05-23 08:38] LABS: CALCIUM 9.9 mg/dL (8.4-11.0); CREATININE 0.72 mg/dL (0.55-1.30)
[2022-05-23 08:46] LABS: BASOPHILS # (AUTO) 0.1 K/uL (0.0-0.2); EOSINOPHILS # (AUTO) 0.3 K/uL (0.0-0.4); EOSINOPHILS % (AUTO) 5.6 % (0.0-4.0); HEMATOCRIT 36.5 % (36-48); LYMPHOCYTES # (AUTO) 1.5 K/uL (1.0-5.5); MEAN CORPUSCULAR VOLUME 92 fL (79.0-98.0); MONOCYTES # (AUTO) 0.6 K/uL (0.0-1.0); MONOCYTES % (AUTO) 11.7 % (1.7-9.3); NEUTROPHILS # (AUTO) 2.8 K/uL (1.8-7.7); NEUTROPHILS % (AUTO) 52.7 % (40.0-70.0); PLATELET COUNT (AUTO) 315 K/uL (130-430); RED BLOOD CELL COUNT(AUTO) 3.95 MIL/uL (4.2-6.2); RED CELL DISTRIBUTION WIDTH 14.6 % (9.0-15.0); WHITE BLOOD COUNT (AUTO) 5.3 K/uL (4.8-10.8)
[2022-05-23] MEDS: GABAPENTIN 400 MG CAPSULE PO SCH ×4 (09:00→22:05)
[2022-05-23] MEDS: PANTOPRAZOLE SODIUM 40 MG TAB PO SCH (09:00)
[2022-05-23] MEDS: QUEtiapine FUMARATE 100 MG TABLET PO SCH ×5 (09:00→22:05)
[2022-05-23] MEDS: DOCUSATE SODIUM 100 MG CAPSULE PO SCH ×2 (09:00→22:05)
[2022-05-23] MEDS: DEUTETRABENAZINE PO SCH ×2 (09:00→22:05)
[2022-05-23] MEDS: OXYCODONE/ACETAMINOPHEN 5-325 TABLET PO PRN (09:41)
[2022-05-23] MEDS: LORazepam 1 MG TABLET PO SCH ×3 (09:41→22:05)
[2022-05-23] MEDS: DIPHENHYDRAMINE HCL 25 MG CAPSULE PO PRN (10:55)
[2022-05-23] MEDS: cefTRIAXone 1 GM in D5W 50 ML IV SCH (11:09)
[2022-05-23] MEDS: MORPHINE 2 MG/ML INJ. SYRINGE IVP PRN (11:28)
--- NOTE | 2022-05-23 14:19 | NUR ---
CELL TECHNICIAN ACSW Camila contacted patient's daughter in law Anel to obtain clarification on patient's housing status. She shared the following; Health- Anel shared the patient was previously receiving hospice services, but "fired everyone". She disclosed patient stating she has cancer, but this was never confirmed. Substance abuse- According to Anel, patient has a long history of ETOH (vodka)abuse. She was sober, and relapsed about 15 years ago. Anel alleges she also has a history of opioids, Xanax, and meth abuse. Patient also had a sister that from overdose whom she used to smoke meth with. Mental Health- Anel was not sure of her mental health diagnosis. 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 SI/HI/SIB- According to Anel, patient "wants to , she is on a suicide mission". ACSW shared there are no current reports of patient exhibiting SI. Anel alleges patient does not eat or attend to her health needs as a way of getting closer to dying. Social- Patient has 2 sons, Dieter Trace . daughter in law Anel . Anel also shared patient has an autistic sister. She is also receiving about $2,000 in SSI. Housing- Patient was residing in [place] in a condo owned by Dieter and Anel. According to Anel, they do not wish for her to return she shared "she can not live alone". According to Anel, during a welfare check, patient was found in bed by family, law enforcement, and EMT's emaciated and covered in urine and feces. She also shared patient was inpatient at [facility], [facility], [facility], [facility], then current inpatient at [facility]. ACSW discussed potential difficulties with placing homeless patient's and discussed accessing her support network in the event she is "discharged home". Anel stated her "sons don't want to deal with her anymore and she is not safe living alone". ACSW explored possible discharge options, and informed her a discharge plan was not known at this time. Anel inquired into current medical condition of patient, ACSW informed her due to confidentiality and patient disclosing to nurse that she does not want family to know "what's going on", this could not be disclosed. ACSW will continue to be available as needed.
--- NOTE | 2022-05-23 15:45 | NUR ---
FURNACE STOCK INSPECTOR ACSW Camila attempted to meet with patient at bedside, RN stated patient was on the commode at this time. ACSW will continue to be available as needed.
--- NOTE | 2022-05-23 18:58 | NUR ---
Report given to nightclub manager RN for continuity of care. Patient stable. NPO at this time.
--- NOTE | 2022-05-23 19:06 | NUR ---
OR nurses came to see patient and get paperwork.
[2022-05-23] MEDS ORDERED: LR 1,000 ML IV.SOLN IV ONE (19:40)
[2022-05-23] MEDS ORDERED: PROPOFOL 200MG/ 20ML VIAL (DIPRIVAN) IV ONE (19:40)
[2022-05-23] MEDS ORDERED: SEVOFLURANE 15 MIN GAS INH ONE (19:40)
[2022-05-23] MEDS ORDERED: ROCURONIUM BROMIDE 10 MG/ML (ZEMURON) IV ONE (19:40)
[2022-05-23] MEDS ORDERED: MIDAZOLAM HCL 5 MG/5 ML VIAL IVP ONE (19:40)
[2022-05-23] MEDS ORDERED: NS IRRIG SOLN 1000 ML IR ONE (19:40)
[2022-05-23] MEDS ORDERED: CEFAZOLIN 2 GM IVPB PREMIX 50 ML IV ONE (19:40)
[2022-05-23] MEDS ORDERED: fentaNYL CITRATE/PF 100 MCG/2 ML AMP IVP ONE (19:40)
--- NOTE | 2022-05-23 20:03 | NUR ---
ORDER: OR NURSE CALLED AND STATED THERE IS NO ORDER FOR CONSENT TO READ . AND ASKING ME TO GET AN ORDER FROM DR COSTELLO . ALSO DR HOSKINS IS ON THE FLOOR , HE IS ALSO ASKING ME TO GET THE ORDER FOR SURGERY , PER OR NURSE THE CONSENT PT SIGNED IS FOR REPAIR OF THE PROLAPSED RECTUM BUT NOT MENTIONED EX.LAP IN THE CONSENT . DR COSTELLO WAS ON THE FLOOR , NOTIFIED HIM. MD STATED HE TALKED ABOUT THIS SURGERY FOR LAST 1 WEEK HOW COME THERE IS NO ORDER , DR COSTELLO STATED HE CALLED THE NURSE TODAY MORNING ALSO AND GAVE ORDER .INFORMED DR COSTELLO THAT DR HOSKINS IS REQUESTING ME TO ENTER THE ORDER FOR SURGERY . MD ORDERED CONSENT TO READ : EXPLORATORY LAPAROTOMY , REPAIR OF THE RECTAL PROLAPSE WITH MESH .WHILE I WAS TALKING WITH DR COSTELLO , LEANN FAYE WAS WITH ME AND HE IS AWARE OF THE SITUATION .MADE ANOTHER CONSENT TO SURGERY PAPER AND CHINYERE SWEENEY NURSE WENT TO OR TO SEE IF THE PT IS STILL AVAILABLE (WITHOUT ANESTHESIA , ALERT AND ORIENTED ) TO SIGN THE CONSENT .
--- NOTE | 2022-05-23 20:25 | NUR ---
Updated consent form printed PAIGE Perez charge nurse printed an updated consent form. I personally took the consent form to the OR unit. I was greeted by Dr. Burgos and he said give form to staff. I stood in the hallway, and gave the form to the OR staff, she sent out an OR nurse. The OR nurse brought out the original consent form, which had been updated in their own writing, and signed. He said this new form can't be used d/t timing is past and they will use original form which has more accurate signature/time stamp. I returned to [facility] unit and notified Chris.
[2022-05-23] MEDS ORDERED: METOCLOPRAMIDE HCL 10 MG/2 ML VIAL IVP PRN (21:15)
[2022-05-23] MEDS ORDERED: ONDANSETRON HCL 4 MG/2 ML VIAL IVP PRN (21:15)
[2022-05-23] MEDS ORDERED: fentaNYL CITRATE/PF 100 MCG/2 ML AMP IVP PRN (21:15)
[2022-05-23] MEDS: DOXEPINE (SINEQUAN) 25 MG CAP PO SCH (22:05)
--- NOTE | 2022-05-23 22:05 | NUR ---
Patient arrived from PACU, Dr. Mcelroy at bedside provided medical updates, MD is aware of patient not having any sedation gtt order at the moment, and ordered to call equipment service associate for medical and sedation orders, MD is OK with placing patient on restraints at the moment, per MD surgery went well and to monitor site and keep area clean, and dry and change if needed. No additional orders noted at the moment, will contact primary (Dr. Barker) to inform patient is in ICU and get a consult for equipment service associate for further orders. Will reinforce if needed throughout the shift.
--- NOTE | 2022-05-23 22:10 | NUR ---
RT NOTES RECEIVED PT FROM OR. PLACED PT ON VENT AC 14, VT 450, PEEP 5, FIO2 50% PER DR HOSKINS. SPUTUM SAMPLE TAKEN. ABG TO BE ONE IN 1 HR. NO SOB NOTED. Addendum: 05/23/22 at 2356 by Jayce Davies RT Amended: Links added.
--- NOTE | 2022-05-23 22:30 | NUR ---
Dr. Barker provided nursing updates on the phone, MD is aware of patient's status and is aware of patient in ICU. MD placed orders for consult, no additional orders noted at the moment. Will reinforce if needed throughout the shift. MD is OK with holding all PO medications at the moment (please see emar for further details).
[2022-05-23] MEDS: fentaNYL CITRATE/PF 100 MCG/2 ML AMP IVP PRN ×2 (22:43→23:22)
--- NOTE | 2022-05-23 22:43 | NUR ---
Paged Dr. Rivera for sedation gtt orders, no answer noted at the moment, and left voicemail for the services. Will wait for further instructions.
--- NOTE | 2022-05-23 23:30 | NUR ---
Paged Dr. Rivera again for medical orders, no answers noted at the moment. Will try again.
--- NOTE | 2022-05-23 23:39 | NUR ---
Dr. Rivera called back, informed MD about patient's status and most current ABG on current ventilator settings per MD no changes needed for ventilator settings, MD is aware of patient's requirement for sedation (please see emar for further details), will wait for pharmacy to verify medication, clarified about the start of feeding or placing an NGT for PO medications/ feeding and per MD hold off on NGT placement and keep patient NPO at the moment, no additional orders noted at the moment, will reinforce if needed throughout the shift. mat man (Kecia) is aware of the situation.
[2022-05-24] VITALS (31 sets, daily range): BP systolic 104–156
[2022-05-24] MEDS: PROPOFOL DRIP 100 ML IV PRN ×2 (00:01→04:33)
[2022-05-24] MEDS: MORPHINE 2 MG/ML INJ. SYRINGE IVP PRN ×3 (01:14→17:39)
[2022-05-24] MEDS: KCL 20 mEq in D5/0.45NS 1000mL 1,000 ML IV SCH ×2 (02:28→15:45)
--- NOTE | 2022-05-24 04:39 | NUR ---
Patient's current sedation gtt rate for propofol is 45 mcg/kg/min, patient is still awake and able to be aroused. Patient can follow commands, and be redirected with simple instructions to not pull on the ET tube or any other medical line. Patient showed attention and nodded head for understanding the education. Restraints are in place and instructed patient about the safety risk, and patient continues to nods head. No additional complications noted at the moment, will reinforce if needed throughout the shift.
[2022-05-24 06:35] LABS: BASOPHILS # (AUTO) 0.1 K/uL (0.0-0.2); BASOPHILS % (AUTO) 0.9 % (0.0-2.0); EOSINOPHILS # (AUTO) 0.1 K/uL (0.0-0.4); EOSINOPHILS % (AUTO) 1.5 % (0.0-4.0); HEMATOCRIT 33.6 % (36-48); LYMPHOCYTES # (AUTO) 1.2 K/uL (1.0-5.5); MEAN CORPUSCULAR VOLUME 91 fL (79.0-98.0); MONOCYTES # (AUTO) 0.9 K/uL (0.0-1.0); MONOCYTES % (AUTO) 9.6 % (1.7-9.3); NEUTROPHILS # (AUTO) 7.1 K/uL (1.8-7.7); PLATELET COUNT (AUTO) 326 K/uL (130-430); RED BLOOD CELL COUNT(AUTO) 3.68 MIL/uL (4.2-6.2); RED CELL DISTRIBUTION WIDTH 14.5 % (9.0-15.0); WHITE BLOOD COUNT (AUTO) 9.5 K/uL (4.8-10.8)
[2022-05-24 06:40] LABS: CALCIUM 9.1 mg/dL (8.4-11.0); CREATININE 0.77 mg/dL (0.55-1.30)
[2022-05-24] MEDS: LevALBUTEROL HCL 1.25 MG/0.5 ML *CONC.* VIAL.NEB (XOPENEX CONC.) INH SCH (07:00)
--- NOTE | 2022-05-24 07:09 | NUR ---
RECEIVED REPORT FROM ENDORSING ANGLEDOZER OPERATOR RN FOR CONTINUITY OF CARE, PATIENT LYING ON BED WITH AN IVF OF KCL IN D5 1/2 NS @ 75ML/HR. ON DIPRIVAN AT 45 MCG/KG/MIN, VITAL SIGNS , HEART RATE 83, RESPIRATORY RATE 16, OXYGEN SATURATION 97 , BLOOD PRESSURE 109/72, TEMPERATURE 97.9, ON AC RATE OF 14, 450, FIO2 40.ZAMORA CATHETER IN PLACE YELLOW URINE IN COLOR DRAINING TO GRAVITY, SCD IN PLACE IN BOTH LOWER LEG, BED LOCKED AT LOWEST POSITION, FALL AND SAFETY PRECAUTION IN PLACE, WILL CONTINUE TO MONITOR.
[2022-05-24] MEDS: LORazepam 1 MG TABLET PO SCH ×3 (08:40→20:15)
[2022-05-24] MEDS: GABAPENTIN 400 MG CAPSULE PO SCH ×3 (08:40→20:15)
[2022-05-24] MEDS: DOCUSATE SODIUM 100 MG CAPSULE PO SCH ×2 (08:40→20:15)
[2022-05-24] MEDS: DEUTETRABENAZINE PO SCH ×2 (08:40→20:18)
[2022-05-24] MEDS: QUEtiapine FUMARATE 100 MG TABLET PO SCH ×2 (08:41→20:15)
[2022-05-24] MEDS: PANTOPRAZOLE SODIUM 40 MG TAB PO SCH (08:41)
--- NOTE | 2022-05-24 11:30 | NUR ---
CPAP STARTED AT 1130, OFF PROPOFOL OXYGEN SATURATION 94%
--- NOTE | 2022-05-24 11:30 | NUR ---
RT NOTES Change done by Dr Rivera CPAP 5 PS 8. No distress noted. Will monitor pt. Will draw ABG 2 hours post intubation.
--- NOTE | 2022-05-24 11:50 | NUR ---
RT NOTES Pt self-extubated, no distress noted. Placed pt on 5L O2 per Dr Rivera and will provide PRN hhn tx shortly.
--- NOTE | 2022-05-24 11:50 | NUR ---
PATIENT SELF EXTUBATE AT 1150. DR. DIAS IS IN THE UNIT, ORDERED PATIENT TO BE PLACED IN 5L OF OXYGEN VIA NASAL CANNULA, NO DISTRESS NOTED AT THIS TIME, OXYGEN SATURATION IS 97% WILL CONTINUE TO MONITOR..
[2022-05-24] MEDS: LevALBUTEROL HCL 1.25 MG/0.5 ML *CONC.* VIAL.NEB (XOPENEX CONC.) INH PRN (11:57)
[2022-05-24] MEDS ORDERED: NICOTINE 21 MG/24 HR PATCH.TD24 TD ONE (12:15)
[2022-05-24] MEDS ORDERED: *PPN PER PHARMACY XX PRN (13:45)
--- NOTE | 2022-05-24 14:02 | NUR ---
RT NOTES Pt cont. to tolerate 5L NC. No distress noted. Sat 95% R.R 14.
[2022-05-24] MEDS: MAG-AL HYDROX/SIMETH 30 ML UDC PO PRN (14:23)
[2022-05-24] MEDS: IPRATROPIUM/ALBUTEROL SULFATE 3 ML AMPUL.NEB (DUONEB) INH SCH ×2 (15:40→20:52)
--- NOTE | 2022-05-24 17:35 | NUR ---
RT NOTES pt cont. to tolerate 3L NC, sat 95%. No distress noted.
--- NOTE | 2022-05-24 19:05 | NUR ---
Received report from PAIGE Kent and assumed patient care. Removed patient's restraints, educated the patient to not remove any lines or medical equipment, patient showed attention and understood the education. Will reinforce if needed throughout the shift. Call light is within reach, bed alarm is in place, and bed is in lowest position.
--- NOTE | 2022-05-24 20:00 | NUR ---
Performed bedside swallow evaluation, patient tolerated the ice chips, and able to drink water without complications. Will inform MD about the situation for further orders.
--- NOTE | 2022-05-24 20:07 | NUR ---
Dr. Barker called back, informed MD about the patient tolerating bedside swallow evaluation and that patient tolerated the ice chips/water. MD is OK with PO medications, and starting clear liquid diet but continue with PPN for the morning. No additional orders noted at the moment, will reinforce if needed throughout the shift.
[2022-05-24] MEDS: DOXEPINE (SINEQUAN) 25 MG CAP PO SCH (20:18)
[2022-05-24] MEDS: BUDESONIDE 0.5 MG/2 ML AMPUL.NEB INH SCH (20:52)
--- NOTE | 2022-05-24 21:44 | NUR ---
Educated the patient about the plan of care, patient understood the teaching, and encouraged patient to self turn q2 hours when remembered. No additional questions noted at the moment, will reinforce if needed throughout the shift.
--- NOTE | 2022-05-24 23:10 | NUR ---
Patient attempted to get out of bed, informed patient about the safety risk and the risk of falling and the possibility of hitting one's head. Patient showed attention upon teaching with utilizing the call light for any help, patient states she understands teaching but will reinforce education throughout the shift if needed. No additional questions noted at the moment, will reinforce if needed throughout the shift. Call light within reach, and bed is in lowest position with bed alarms in place. perforator operator oil well (Ligia) is aware of the situation.
[2022-05-25] VITALS (19 sets, daily range): BP systolic 90–125
[2022-05-25] MEDS: MORPHINE 2 MG/ML INJ. SYRINGE IVP PRN ×3 (00:58→17:47)
--- NOTE | 2022-05-25 02:40 | NUR ---
Changed patient's linens, patient was able to assist with turns and showed no complications noted during the process. Will reinforce if needed throughout the shift.
[2022-05-25] MEDS: IPRATROPIUM/ALBUTEROL SULFATE 3 ML AMPUL.NEB (DUONEB) INH SCH ×6 (04:49→23:00)
[2022-05-25] MEDS: KCL 20 mEq in D5/0.45NS 1000mL 1,000 ML IV SCH ×2 (05:15→21:20)
[2022-05-25 06:51] LABS: BASOPHILS % (AUTO) 0.6 % (0.0-2.0); EOSINOPHILS # (AUTO) 0.2 K/uL (0.0-0.4); HEMATOCRIT 30.7 % (36-48); LYMPHOCYTES # (AUTO) 1.3 K/uL (1.0-5.5); LYMPHOCYTES % (AUTO) 22.6 % (20.5-51.5); MEAN CORPUSCULAR VOLUME 92 fL (79.0-98.0); MONOCYTES # (AUTO) 1.1 K/uL (0.0-1.0); MONOCYTES % (AUTO) 19.3 % (1.7-9.3); NEUTROPHILS # (AUTO) 3.2 K/uL (1.8-7.7); NEUTROPHILS % (AUTO) 54.5 % (40.0-70.0); PLATELET COUNT (AUTO) 284 K/uL (130-430); RED BLOOD CELL COUNT(AUTO) 3.35 MIL/uL (4.2-6.2); RED CELL DISTRIBUTION WIDTH 14.4 % (9.0-15.0); WHITE BLOOD COUNT (AUTO) 5.8 K/uL (4.8-10.8)
[2022-05-25 07:06] LABS: ALBUMIN 1.8 g/dL (3.4-4.8); CREATININE 0.69 mg/dL (0.55-1.30); PHOSPHORUS 3.7 mg/dL (2.7-4.5); TOTAL BILIRUBIN 0.2 mg/dL (0.0-1.0)
--- NOTE | 2022-05-25 07:10 | NUR ---
RECEIVED REPORT FROM ENDORSING BATH SOLUTION MAKER RN FOR CONTINUITY OF CARE, PATIENT WITH AN IVF OF KCL 20MEQ IN D5 0.45 NORMAL SALINE @75 ML/HR. ON NASAL CANNULA 3 L OF OXYGEN VIA NASAL CANNULA, ZAMORA CATHETER IN PLACE YELLOW URINE IN COLOR DRAINING TO GRAVITY, BED LOCKED AT LOWEST POSITION. FALL AND SAFETY PRECAUTION IN PLACE. WILL CONTINUE TO MONITOR.
[2022-05-25] MEDS: BUDESONIDE 0.5 MG/2 ML AMPUL.NEB INH SCH ×2 (07:22→19:00)
[2022-05-25] MEDS: GABAPENTIN 400 MG CAPSULE PO SCH ×3 (08:49→21:25)
[2022-05-25] MEDS: PANTOPRAZOLE SODIUM 40 MG TAB PO SCH (08:49)
[2022-05-25] MEDS: QUEtiapine FUMARATE 100 MG TABLET PO SCH ×3 (08:49→21:24)
[2022-05-25] MEDS: DOCUSATE SODIUM 100 MG CAPSULE PO SCH ×2 (08:53→21:23)
[2022-05-25] MEDS: DEUTETRABENAZINE PO SCH ×2 (08:54→21:00)
[2022-05-25] MEDS: NICOTINE 21 MG/24 HR PATCH.TD24 TD SCH (08:55)
[2022-05-25] MEDS: OXYCODONE/ACETAMINOPHEN 5-325 TABLET PO PRN ×2 (13:11→21:23)
--- NOTE | 2022-05-25 16:10 | NUR ---
Nutrition F/U Admitting Diagnosis: Complete Rectal Prolapse Reviewed Pertinent Medical/Surgical Hx Medical Record Patient Primary RN Medical History Comment: Per EMR: 66 YOF who transferred from [facility] for evaluation/ treatment of rectal prolapse. Patient found with anemia and COPD. Patient is pending colonoscopy and prolapse treatment. Visual NFPE completed d/t patient falling asleep during interview plus seen with blankets covering the bottom half of her body: Moderate - Severe fat loss: orbitals and triceps; Moderate - Severe muscle wasting: temples, clavicles, and shoulders -- PMHx: long history of psychological disorder, chronic smoker -- Sx Hx: tummy tuck, silicone breast implants Subjective Information: PPN per pharmacy notification received 05/24/[address] rounded to ICU and spoke w/ pt's primary RN this afternoon. He reported that pt is tolerating clear liquid diet, ate >50% of breakfast and lunch trays. No PPN seen infusing at bedside upon entering pt's room. Pt was asleep. Bedscale wt taken: 129.8# -- closely c/w documented admission wt of 126#. RD spoke w/ pt's attending MD in [facility] nursing station to inquire about increasing PPN infusion rate -- he reported this would be fine, and that surgeon has approved pt to transfer to telemetry unit and advance to Full Liquid diet. RD called pharmacy and spoke w/ pharmD to relay RD recs for PPN. PharmD stated modifications may be made tomorrow. Per EMR review, pt is confused/disoriented; on 3 L O2 via NC; no BM noted since 05/23; pt is POD 2s/p reduction of the prolapse of the rectum; extubated yesterday, 05/24. Full Liquid diet and PPN support continues appropriate at this time as pt has a Hx of severe unintentional wt loss, suboptimal PO intakes, and increased risk for malnutrition. Current Diet Order/Nutrition Support: Full Liquid x0 days Height (Feet) 5 feet Height (Inches) 8.00 inches Weight (Pounds) 126 pounds -- stable since 05/16 Patient Weight 57.153 kg Body Mass Index 19.16 kg/m2 Usual Weight 150 lbs %UBW 84 %IBW 90 [place]/Adjusted Body Weight 140 lbs/ 64kg Recent Weight Change Yes - Severe wt loss: 16% (24 lbs) x 6 months, Unintentional Weight Status Underweight Gastrointestinal Symptoms None, per pt Last BM 05/18 x2 Food Allergies No Usual Diet At Home Regular Skin Integrity Comment: Venancio 14: No problems identified via EMR Current % PO >50% of Clear Liquid diet per RN report 05/25 Estimated Energy Expenditure (kcals/day) 2785-4492 (30-35 kcal/kg IBW d/t GERIAT, BMI <21, Sx healing) Estimated Protein Required (g/day) 64-96 (1-1.5 g/kg IBW d/t GERIAT, BMI <21, Sx healing) Estimated Fluid Required (l/day) 2-2.2 (1mL/kcal for maintenance) Problem/Etiology/Signs/Symptoms * Severe unintentional weight loss r/t suspected long-term inadequate oral intake a/e/b patient endorses 24lb and 16% weight loss x 6 months. *Ongoing * Inadequate oral intake r/t clear liquid diet order a/e/b CLD provides 1531 kcal/day and 50g pro/day; 89% estimated energy needs and 78% estimated pro/day. *Ongoing Expected Outcomes/Goals PO intake provides >85% estimated nutrient needs, slow wt gain w/in 1-2lbs per wk, skin integrity, nutrition-related labs trending WNL, improvements in bowel function, BM q1-3 days Dietitian Recommendations * Continue plan for Full Liquid diet (ONS Ensure Enlive TID comes standard w/ this diet; ONS yields 1050 kcal/day, 60 gm protein/day) * Encourage increase PO intakes * PPN D20%, AA8.5% at 95 ml/hr (goal rate), IL20% at 10 ml/hr via peripheral line Provides (w/ current [id number] IV at 75 ml/hr): 1949 kcal/day, 97 gm protein/day, 4320 ml total volume/day, and GIR: 3.9 gm CHO/kg/min Meets: 102% of lower end of estimated caloric needs and 101% of upper end of estimated protein needs * If/when medically appropriate, advance to soft (low-fiber/bland) diet w/ Ensure Enlive TID * Recommend daily MVI Follow Up High Risk: F/U in 2-3 days Addendum: 05/25/22 at [address] CORRECTION: Current Diet Order/Nutrition Support: Full Liquid x0 days & PPN D20%, AA8.5% at 42 ml/hr via peripheral line RD reviewed pt's current EMR including diet Hx, physician notes, nursing notes, pertinent labs/meds/procedures, care trends, and care activity. Addendum: 05/25/22 at [address] CORRECTION: Dietitian Recommendations * Continue plan for Full Liquid diet (ONS Ensure Enlive TID comes standard w/ this diet; ONS yields 1050 kcal/day, 60 gm protein/day) * Encourage increase PO intakes * PPN D20%, AA8.5% at 95 ml/hr (goal rate), IL20% at 10 ml/hr via peripheral line Provides (w/ current [id number] IV at 75 ml/hr): 1949 kcal/day, 97 gm protein/day, 4320 ml total volume/day, and GIR: 3.9 mg CHO/kg/min Meets: 102% of lower end of estimated caloric needs and 101% of upper end of estimated protein needs * If/when medically appropriate, advance to soft (low-fiber/bland) diet w/ Ensure Enlive TID * Recommend daily MVI LP, MS, RD
--- NOTE | 2022-05-25 16:23 | NUR ---
Dietitian Recommendations * Continue plan for Full Liquid diet (ONS Ensure Enlive TID comes standard w/ this diet; ONS yields 1050 kcal/day, 60 gm protein/day) * Encourage increase PO intakes * PPN D20%, AA8.5% at 95 ml/hr (goal rate), IL20% at 10 ml/hr via peripheral line Provides (w/ current [id number] IV at 75 ml/hr): 1949 kcal/day, 97 gm protein/day, 4320 ml total volume/day, and GIR: 3.9 gm CHO/kg/min Meets: 102% of lower end of estimated caloric needs and 101% of upper end of estimated protein needs * If/when medically appropriate, advance to soft (low-fiber/bland) diet w/ Ensure Enlive TID * Recommend daily MVI LP, MS, RD Please refer to Nutrition F/U for details. Addendum: 05/25/22 at [address] CORRECTION: Dietitian Recommendations * Continue plan for Full Liquid diet (ONS Ensure Enlive TID comes standard w/ this diet; ONS yields 1050 kcal/day, 60 gm protein/day) * Encourage increase PO intakes * PPN D20%, AA8.5% at 95 ml/hr (goal rate), IL20% at 10 ml/hr via peripheral line Provides (w/ current [id number] IV at 75 ml/hr): 1949 kcal/day, 97 gm protein/day, 4320 ml total volume/day, and GIR: 3.9 mg CHO/kg/min Meets: 102% of lower end of estimated caloric needs and 101% of upper end of estimated protein needs * If/when medically appropriate, advance to soft (low-fiber/bland) diet w/ Ensure Enlive TID * Recommend daily MVI LP, MS, RD Please refer to Nutrition F/U for details.
[2022-05-25] MEDS ORDERED: GABAPENTIN 100 MG CAPSULE ONE (16:46)
[2022-05-25] MEDS ORDERED: GABAPENTIN 400 MG CAPSULE ONE (16:49)
--- NOTE | 2022-05-25 16:54 | NUR ---
1630 Pt. to room 114B from ICU, aaox4, vss, all belongings with pt. Pt. made comfortable , call light in reach, dressing to abdomen d/i. Given Neurontin for pain
--- NOTE | 2022-05-25 18:01 | NUR ---
1800 Pt. aaox4, vss, given morphine 1mg ivp, attempting to eat dinner, call light in reach, garcia patent, dressing to abdomen d/i.
[2022-05-25] MEDS ORDERED: BUDESONIDE 0.5 MG/2 ML AMPUL.NEB INH SCH (19:00)
[2022-05-25] MEDS ORDERED: TPN PERIPHERAL 0.0001 ML, SODIUM CHLORIDE 40 MEQ, POTASSIUM CHLORIDE 20 MEQ, K PHOS 6 M... IV SCH ×9 (21:00)
[2022-05-25] MEDS: DOXEPINE (SINEQUAN) 25 MG CAP PO SCH (21:25)
[2022-05-25] MEDS: DIPHENHYDRAMINE HCL 25 MG CAPSULE PO PRN ×2 (21:32→21:38)
[2022-05-26 00:30] VITALS: BP_SYST 102
[2022-05-26] MEDS: MORPHINE 2 MG/ML INJ. SYRINGE IVP PRN ×3 (01:56→22:34)
[2022-05-26] MEDS: IPRATROPIUM/ALBUTEROL SULFATE 3 ML AMPUL.NEB (DUONEB) INH SCH ×4 (03:00→15:00)
[2022-05-26] MEDS: BUDESONIDE 0.5 MG/2 ML AMPUL.NEB INH SCH (07:00)
[2022-05-26 08:03] LABS: ALBUMIN 1.6 g/dL (3.4-4.8); CALCIUM 9.2 mg/dL (8.4-11.0); CREATININE 0.59 mg/dL (0.55-1.30); PHOSPHORUS 3.4 mg/dL (2.7-4.5); TOTAL BILIRUBIN 0.2 mg/dL (0.0-1.0)
[2022-05-26] MEDS: KCL 20 mEq in D5/0.45NS 1000mL 1,000 ML IV SCH (08:05)
[2022-05-26] MEDS: DOCUSATE SODIUM 100 MG CAPSULE PO SCH ×2 (10:04→21:30)
[2022-05-26] MEDS: DEUTETRABENAZINE PO SCH ×2 (10:04→21:32)
[2022-05-26] MEDS: GABAPENTIN 400 MG CAPSULE PO SCH ×3 (10:04→21:30)
[2022-05-26] MEDS: PANTOPRAZOLE SODIUM 40 MG TAB PO SCH (10:04)
[2022-05-26] MEDS: QUEtiapine FUMARATE 100 MG TABLET PO SCH ×3 (10:05→21:30)
[2022-05-26] MEDS: NICOTINE 21 MG/24 HR PATCH.TD24 TD SCH (10:05)
--- NOTE | 2022-05-26 14:23 | NUR ---
PROGRAMS ASSISTANT ACSW Camila met with patient at bedside. ACSW completed introductions, provided business card, and patient was open to contact. Current issue- Patient's daughter in law Anel disclosed both her and patient's son Dieter own the condo the patient had previously resided in and according to Anel they are not going to allow her to return. Mental Health- Patient was unable to recall her time at [facility] prior to admission at [facility]. Patient was unable to disclose any prior mental health diagnosis. Substance use- Patient denies substance use. Patient disclosed drinking "socially". Housing- Patient was unable to state where she lives. Discharge Plans- ACSW attempted to explore patient's plans for discharge, but patient was unable to have meaningful participation in Social Work consult. ACSW made attempts to explore patient's housing and mental health concerns. ACSW also attempted to explore social supports. Patient was unable to recall information related to medical care, social supports, and mental health needs. ACSW consulted with assigned RN to obtain update on discharge plans, but there are none at this time. ACSW will continue to be available as needed.
[2022-05-26 15:06] VITALS: BP_SYST 153
[2022-05-26 16:00] VITALS: BP_SYST 141
--- NOTE | 2022-05-26 20:00 | NUR ---
Received report from PAIGE ALBARRAN and assumed patient care. PT aox4 bed rest. pt has midline and garcia, Lungs are rhonchi, and skin intact erythema Pt has PPN and lipids. Will reinforce iwhy nutrition is important throughout the shift. Call light is within reach, bed alarm is in place, and bed is in lowest position.
[2022-05-26 20:28] VITALS: BP_SYST 147
[2022-05-26 20:33] VITALS: BP_SYST 147
[2022-05-26] MEDS ORDERED: TPN PERIPHERAL 0.0001 ML, SODIUM CHLORIDE 40 MEQ, POTASSIUM CHLORIDE 20 MEQ, K PHOS 6 M... IV SCH ×10 (21:00)
[2022-05-26] MEDS: FAT EMULSIONS 250 ML IV SCH (21:29)
[2022-05-26] MEDS: ENOXAPARIN SODIUM 40 MG/0.4 ML SYRINGE SUBCUT SCH (21:29)
[2022-05-26] MEDS: DOXEPINE (SINEQUAN) 25 MG CAP PO SCH (21:30)
[2022-05-26] MEDS: DIPHENHYDRAMINE HCL 25 MG CAPSULE PO PRN (21:36)
--- NOTE | 2022-05-27 | NUR ---
pt has back pain. Given M 2mg @ 2200 and reassessed, pt has 3/ pian.
[2022-05-27] MEDS: KCL 20 mEq in D5/0.45NS 1000mL 1,000 ML IV SCH ×2 (00:58→15:25)
[2022-05-27] MEDS: IBUPROFEN 800 MG TABLET PO PRN ×3 (03:02→23:04)
--- NOTE | 2022-05-27 03:14 | NUR ---
Pt has 6/10 pain, gave ibuprofen 800mg po. will reasses
[2022-05-27] MEDS: MORPHINE 2 MG/ML INJ. SYRINGE IVP PRN ×3 (05:46→20:31)
--- NOTE | 2022-05-27 07:20 | NUR ---
OPENING NOTE RECEIVED PT LYING IN BED. PT IN BED RESPIRATIONS EVEN, REGULAR, AND NON-LABORED. ZAMORA CATHETER DRAINING BY GRAVITY. IV RUNNING ORDERED. IV SITE REMAIN PATENT AND NO S/S OF INFILTRATION. DENIES ANY PAIN OR DISCOMFORT. WILL CONT TO MONITOR.
--- NOTE | 2022-05-27 09:00 | NUR ---
O2 NC REFUSAL PT O2 92%@RA. REFUSED TO PUT O2 NC ON. NC AT BEDSIDE.
[2022-05-27] MEDS: PANTOPRAZOLE SODIUM 40 MG TAB PO SCH (09:27)
[2022-05-27] MEDS: DOCUSATE SODIUM 100 MG CAPSULE PO SCH ×2 (09:27→20:28)
[2022-05-27] MEDS: QUEtiapine FUMARATE 100 MG TABLET PO SCH ×3 (09:28→20:29)
[2022-05-27] MEDS: NICOTINE 21 MG/24 HR PATCH.TD24 TD SCH (09:28)
[2022-05-27] MEDS: GABAPENTIN 400 MG CAPSULE PO SCH ×3 (09:28→20:28)
[2022-05-27 09:42] LABS: BASOPHILS % (AUTO) 0.9 % (0.0-2.0); EOSINOPHILS # (AUTO) 0.2 K/uL (0.0-0.4); EOSINOPHILS % (AUTO) 3.4 % (0.0-4.0); HEMATOCRIT 29.9 % (36-48); LYMPHOCYTES # (AUTO) 1.5 K/uL (1.0-5.5); LYMPHOCYTES % (AUTO) 26.7 % (20.5-51.5); MEAN CORPUSCULAR VOLUME 91 fL (79.0-98.0); MONOCYTES # (AUTO) 0.8 K/uL (0.0-1.0); MONOCYTES % (AUTO) 14.8 % (1.7-9.3); NEUTROPHILS % (AUTO) 54.2 % (40.0-70.0); PLATELET COUNT (AUTO) 285 K/uL (130-430); RED BLOOD CELL COUNT(AUTO) 3.28 MIL/uL (4.2-6.2); RED CELL DISTRIBUTION WIDTH 14.4 % (9.0-15.0); WHITE BLOOD COUNT (AUTO) 5.5 K/uL (4.8-10.8)
[2022-05-27 10:05] LABS: ALBUMIN 1.7 g/dL (3.4-4.8); CALCIUM 9.3 mg/dL (8.4-11.0); CREATININE 0.57 mg/dL (0.55-1.30); PHOSPHORUS 3.8 mg/dL (2.7-4.5); TOTAL BILIRUBIN 0.1 mg/dL (0.0-1.0)
--- NOTE | 2022-05-27 10:25 | NUR ---
ORDER TALKED TO , RECEIVED NEW ORDER. MOM 30ML DAILY UNTIL PT HAS BM, OK TO REGULAR DIET
[2022-05-27] MEDS: DEUTETRABENAZINE PO SCH ×2 (10:54→20:28)
[2022-05-27] MEDS ORDERED: MILK OF MAGNESIA 30 ML UDC PO ONE (11:00)
--- NOTE | 2022-05-27 11:47 | NUR ---
MD KUMARI AT BEDSIDE ASSESSING PT. Addendum: 05/27/22 at 1530 by Chaparrita Valladares RN
[2022-05-27 12:00] VITALS: BP_SYST 115
--- NOTE | 2022-05-27 15:29 | NUR ---
MD CONTINUE TPN AND FAT EMULSIONS PER .
--- NOTE | 2022-05-27 15:49 | NUR ---
CRITICAL LAB RESULT INFORMED REGARDING POSITIVE MRSA IN SPUTUM. NO NEW ORDER RECEIVED. INFORMED CITY ALDERMAN.
[2022-05-27 16:00] VITALS: BP_SYST 100
--- NOTE | 2022-05-27 16:00 | NUR ---
BED BATH PROVIDED PARTIAL BED BATH AND CHANGED BED LINEN AND GOWN.
--- NOTE | 2022-05-27 16:32 | NUR ---
ROUNDING ASSESSING PT AT BEDSIDE.
--- NOTE | 2022-05-27 17:06 | NUR ---
PAGED PAGED REGARDING MORPHINE ORDER RENEWAL, FOR IT IS ABOUT TO .
--- NOTE | 2022-05-27 17:07 | NUR ---
MORPHINE ORDER DR.KADHIUM IYER TO RENEW MORPHINE ORDER.
[2022-05-27] MEDS ORDERED: NALOXONE HCL 0.4 MG/ML AMP (NARCAN) IVP PRN (17:15)
[2022-05-27] MEDS: cefTRIAXone 1 GM in D5W 50 ML IV SCH (17:48)
--- NOTE | 2022-05-27 19:00 | NUR ---
CLOSING NOTE PT IN BED, RESPIRATIONS EVEN, REGULAR, AND NON-LABORED. DENIES CHEST PAIN/SOB/DISCOMFORT. ZAMORA CATHETER DRAINING BY GRAVITY. IV SITE REMAIN PATENT. NO S/S OF INFILTRATION/INFECTION. BED IS LOCKED AND AT LOW POSITION. SAFETY PRECAUTION IN PLACED.ENDORSED CARE TO SHELL SORTER NURSE.
[2022-05-27] MEDS: ENOXAPARIN SODIUM 40 MG/0.4 ML SYRINGE SUBCUT SCH (20:29)
[2022-05-27] MEDS: DOXEPINE (SINEQUAN) 25 MG CAP PO SCH (20:29)
[2022-05-27 20:30] VITALS: BP_SYST 122
[2022-05-27] MEDS ORDERED: TPN PERIPHERAL 0.0001 ML, SODIUM CHLORIDE 40 MEQ, POTASSIUM CHLORIDE 20 MEQ, K PHOS 6 M... IV SCH ×10 (21:00)
[2022-05-27] MEDS: FAT EMULSIONS 250 ML IV SCH (22:10)
[2022-05-28 00:15] VITALS: BP_SYST 147
[2022-05-28] MEDS: KCL 20 mEq in D5/0.45NS 1000mL 1,000 ML IV SCH ×2 (06:02→18:53)
--- NOTE | 2022-05-28 07:30 | NUR ---
Shift Summary Patient stable throughout night. Unlabored breathing on room air, 96-98%. Given ibuprofen and morphine PRN. TPN, lipids, and IV fluids infusing per order. Monzon catheter draining yellow urine to gravity. Call light in reach.
--- NOTE | 2022-05-28 07:40 | NUR ---
OPENING NOTE PT IN BED, RESPIRATIONS NON-LABORED ON ROOM AIR. IV FLUIDS RUNNING ORDERED WITH IV SITE REMAIN PATENT. ZAMORA CATHETER DRAINING BY GRAVITY. BED IS LOCK AND AT LOW POSITION. C/O GENERALIZED PAIN, WILL PROVIDE PAIN MANAGEMENT ORDERED. WILL CONT TO MONITOR.
[2022-05-28 08:00] VITALS: BP_SYST 116
--- NOTE | 2022-05-28 08:00 | NUR ---
LAB REFUSAL PT REFUSED BLOOD LAB DONE THIS MORNING. PROVIDED EDUCATION REGARDING THE INDICATION OF IT, PT VERBALIZE UNDERSTANDING, STILL REFUSED.
[2022-05-28] MEDS: PANTOPRAZOLE SODIUM 40 MG TAB PO SCH (08:23)
[2022-05-28] MEDS: GABAPENTIN 400 MG CAPSULE PO SCH ×3 (08:23→21:37)
[2022-05-28] MEDS: DOCUSATE SODIUM 100 MG CAPSULE PO SCH ×3 (08:23→21:38)
[2022-05-28] MEDS: QUEtiapine FUMARATE 100 MG TABLET PO SCH ×3 (08:23→21:37)
[2022-05-28] MEDS: MORPHINE 2 MG/ML INJ. SYRINGE IVP PRN ×3 (08:24→21:37)
[2022-05-28] MEDS: NICOTINE 21 MG/24 HR PATCH.TD24 TD SCH (08:24)
[2022-05-28] MEDS: MILK OF MAGNESIA 30 ML UDC PO SCH (08:24)
[2022-05-28] MEDS: DEUTETRABENAZINE PO SCH ×2 (09:53→21:38)
--- NOTE | 2022-05-28 10:00 | NUR ---
IV PULLED OUT PT ACCIDENTLY PULLED OUT PIV TO RIGHT WRIST. APPLIED PRESSURE DRESSING. NO ACTIVE BLEEDING NOTED. DENIES ANY PAIN/DISCOMFORT TO THE SITE.
[2022-05-28 11:31] VITALS: BP_SYST 127
--- NOTE | 2022-05-28 12:00 | NUR ---
ABDOMINAL DRESSING PT REQUESTS TO CHANGE ABDOMINAL DRESSING, PROVIDED NEW DRESSING ON ABDOMINAL AREA. SITE REMAIN CLEAN AND DRY WITH WELL APPROXIMATED JASON. PT DENIES ANY PAIN/DISCOMFORT AT THE SITE. WILL CONT TO MONITOR
--- NOTE | 2022-05-28 13:12 | NUR ---
Nutrition F/U RD reviewed pt's current EMR including diet Hx, physician notes, nursing notes, pertinent labs/meds/procedures, care trends, and care activity. Short note d/t high RD workload. Admitting Diagnosis: Complete Rectal Prolapse Medical Hx: Per EMR: 66 YOF who transferred from [facility] for evaluation/ treatment of rectal prolapse. Patient found with anemia and COPD. Patient is pending colonoscopy and prolapse treatment. Visual NFPE completed d/t patient falling asleep during interview plus seen with blankets covering the bottom half of her body: Moderate - Severe fat loss: orbitals and triceps; Moderate - Severe muscle wasting: temples, clavicles, and shoulders -- PMHx: long history of psychological disorder, chronic smoker -- Sx Hx: tummy tuck, silicone breast implants Subjective Information: RD visited patient at bedside during lunch. Per pt, appetite is great but she does not like the foods. New preferences taken and computrition updated. Pt reports no recent BM but no GI problems. Per EMR, LBM documented 05/23/22. PO intake noted poor at 44% x 8 days: provides 1173 kcal and 58g protein/day. Patient also receiving PPN: D20% AA8.5% @ 50 mL + 20%ILE @ 5 mL/hr. PPN provides: 1234 kcal, 102g protein, and 1200mL fluids (GIR 2.9). Together, PO intake and PPN provides 2407 kcal and 160g protein, exceeding nutrient needs. Current Diet Order/Nutrition Support: Regular diet x 1 day; PPN (D20% AA8.5% @ 50mL/hr + 20%ILE @ 5 mL/hr) x 4 days Weight Status: Underweight (BMI <21 for 65+) GI symptoms: None, per pt Last BM: 05/23 x 1 Skin Integrity Comment: Venancio 16: abdominal incision; right arm erythema No edema noted per EMR Current % PO 44% average PO x 8 meals per EMR; Combined with PPN exceeds nutrient needs Estimated Energy Expenditure (kcals/day) 9379-0475 (30-35 kcal/kg IBW d/t GERIAT, BMI <21, Sx healing) Estimated Protein Required (g/day) 64-96 (1-1.5 g/kg IBW d/t GERIAT, BMI <21, Sx healing) Estimated Fluid Required (l/day) 2-2.2 (1mL/kcal for maintenance) Problem/Etiology/Signs/Symptoms * Severe unintentional weight loss r/t suspected long-term inadequate oral intake a/e/b patient endorses 24lb and 16% weight loss x 6 months. (Ongoing) * Inadequate oral intake r/t clear liquid diet order a/e/b CLD provides 1531 kcal/day and 50g pro/day; 89% estimated energy needs and 78% estimated pro/day. (Resolved on regular diet) Expected Outcomes/Goals -- PO intake provides >85% estimated nutrient needs, slow wt gain w/in 1-2lbs per wk, skin integrity, nutrition-related labs trending WNL, improvements in bowel function, BM q1-3 days Dietitian Recommendations * Continue regular diet, as tolerated * Encourage increase PO intakes * Recommend d/c PPN if patient tolerating >65% PO diet: D20%, AA8.5% at 50 ml/hr (goal rate), IL20% at 5 ml/hr via peripheral line -- Provides (w/ current PO intake): 2407 kcal/day and 160g protein/day, 1200mL volume per day with GIR 2.9 mg CHO/kg/min -- Meets: 107% of upper end of estimated caloric needs and 167% of upper end of estimated protein needs (exceeding) High Risk F/U 2-3 days: 05/30-05/31
--- NOTE | 2022-05-28 13:16 | NUR ---
Dietitian Recommendations * Continue regular diet, as tolerated * Encourage increase PO intakes * Recommend d/c PPN if patient tolerating >65% PO diet: D20%, AA8.5% at 50 ml/hr (goal rate), IL20% at 5 ml/hr via peripheral line -- Provides (w/ current PO intake): 2407 kcal/day and 160g protein/day, 1200mL volume per day with GIR 2.9 mg CHO/kg/min -- Meets: 107% of upper end of estimated caloric needs and 167% of upper end of estimated protein needs (exceeding) Please refer to nutrition assessment for details, thanks! CC, MPH, RDN
[2022-05-28 15:33] VITALS: BP_SYST 150
--- NOTE | 2022-05-28 16:00 | NUR ---
ORDER RECEIVED ORDER TO DC ZAMORA CATHETER FROM DR. DE JESUS
[2022-05-28 16:59] LABS: ALBUMIN 1.8 g/dL (3.4-4.8); CALCIUM 8.8 mg/dL (8.4-11.0); CREATININE 0.61 mg/dL (0.55-1.30); TOTAL BILIRUBIN 0.2 mg/dL (0.0-1.0)
--- NOTE | 2022-05-28 18:12 | NUR ---
NOAH INFORMED DR DE JESUS THAT PATIENT REFUSED TO HAVE ZAMORA REMOVED AND WANTS IT DONE TOMORROW MORNING. PER DR DE JESUS REMOVE IN THE AM
[2022-05-28] MEDS: cefTRIAXone 1 GM in D5W 50 ML IV SCH (18:50)
--- NOTE | 2022-05-28 19:14 | NUR ---
CLOSING NOTE PT IN BED, HAVING BREAKFAST. RESPIRATIONS EVEN AND NON-LABORED ON ROOM AIR. NO S/S OF SOB, PAIN OR DISCOMFORT. IV RUNNING ORDERED WITH IV SITE REMAIN PATENT AND CLEAN. ZAMORA CATHETER DRAINING BY GRAVITY. ENDORSED DRILLING AND PRODUCTION SUPERINTENDENT NURSE THAT ZAMORA CATHETER HAS TO BE REMOVED TOMORROW MORNING. BED IS LOCK AND AT LOW POSITION. SAFETY PRECAUTION IN PLACED. ENDORSED CARE TO DRILLING AND PRODUCTION SUPERINTENDENT NURSE.
[2022-05-28] MEDS ORDERED: TPN PERIPHERAL 0.0001 ML, SODIUM CHLORIDE 40 MEQ, POTASSIUM CHLORIDE 20 MEQ, K PHOS 6 M... IV SCH ×9 (21:00)
[2022-05-28] MEDS: DOXEPINE (SINEQUAN) 25 MG CAP PO SCH (21:37)
[2022-05-28] MEDS: ENOXAPARIN SODIUM 40 MG/0.4 ML SYRINGE SUBCUT SCH (21:39)
[2022-05-28] MEDS: FAT EMULSIONS 250 ML IV SCH (22:42)
[2022-05-29 00:39] VITALS: BP_SYST 161
--- NOTE | 2022-05-29 07:30 | NUR ---
Shift summary Patient stable and slept through most of night, no distress noted. TPN, lipids, and IV fluids infusing as ordered. Abdominal dressing clean dry and intact. No bowel movement. Monzon in place draining yellow urine to gravity. Patient informed last night that Monzon will have to be removed in the morning per Dr. Barker, patient verbalized understanding. This morning, patient refused, stating "it's too early, we can do it later." Oncoming nurse aware.
[2022-05-29 08:00] VITALS: BP_SYST 145
[2022-05-29] MEDS: [UNRECOGNIZED DRUG - OTHER] IV SCH ×9 (08:00)
[2022-05-29] MEDS: POTASSIUM CHLORIDE IV SCH ×9 (08:00)
[2022-05-29] MEDS: SODIUM CHLORIDE IV SCH ×9 (08:00)
[2022-05-29] MEDS: TPN PERIPHERAL IV SCH ×9 (08:00)
--- NOTE | 2022-05-29 08:00 | NUR ---
Initial notes Alert, pain is control. abdominal dressing dry and intact. ON TPN and Lipids and IVF, patient also on regular diet but she is not really eating.
[2022-05-29 08:23] LABS: CALCIUM 9.1 mg/dL (8.4-11.0); CREATININE 0.8 mg/dL (0.55-1.30); PHOSPHORUS 2.7 mg/dL (2.7-4.5); TOTAL BILIRUBIN 0.3 mg/dL (0.0-1.0)
[2022-05-29] MEDS: FAT EMULSIONS 250 ML IV SCH (09:00)
[2022-05-29] MEDS: MILK OF MAGNESIA 30 ML UDC PO SCH (09:10)
[2022-05-29] MEDS: QUEtiapine FUMARATE 100 MG TABLET PO SCH ×3 (09:10→22:02)
[2022-05-29] MEDS: DOCUSATE SODIUM 100 MG CAPSULE PO SCH ×2 (09:11→21:00)
[2022-05-29] MEDS: GABAPENTIN 400 MG CAPSULE PO SCH ×3 (09:11→22:02)
[2022-05-29] MEDS: PANTOPRAZOLE SODIUM 40 MG TAB PO SCH (09:11)
[2022-05-29] MEDS: NICOTINE 21 MG/24 HR PATCH.TD24 TD SCH (09:12)
[2022-05-29] MEDS: DEUTETRABENAZINE PO SCH (09:13)
[2022-05-29] MEDS: KCL 20 mEq in D5/0.45NS 1000mL 1,000 ML IV SCH (10:04)
--- NOTE | 2022-05-29 11:00 | NUR ---
Voided Patient voided after removing garcia catheter.
[2022-05-29 11:15] VITALS: BP_SYST 131
--- NOTE | 2022-05-29 12:22 | NUR ---
paged- Paged Dr. tellez RE: patient is vomiting light yellow in color with sputum.
--- NOTE | 2022-05-29 12:54 | NUR ---
PAGED DR LLOYD COVERING FOR DR COSTELLO RE: PATIENT IS VOMITING.
--- NOTE | 2022-05-29 14:20 | NUR ---
Spoke to Dr. Pang with new orders received.
--- NOTE | 2022-05-29 14:44 | NUR ---
rounds Seen by dr. Barker at bedside
--- NOTE | 2022-05-29 14:50 | NUR ---
Notes Resting, still nauseated but no vomiting so far. Dr tellez will order nausea meds.
[2022-05-29 15:30] VITALS: BP_SYST 132
--- NOTE | 2022-05-29 16:59 | NUR ---
BM- Patient had large bowel at this time. cleaned and repositioned. Pain is control.
--- NOTE | 2022-05-29 17:02 | NUR ---
CALLED- Spoke to Dr. Bridges and made aware of abdominal xray results.
[2022-05-29] MEDS: cefTRIAXone 1 GM in D5W 50 ML IV SCH (17:21)
--- NOTE | 2022-05-29 18:29 | NUR ---
Closing notes Pt vomits again when she coughs. Instructed her not to eat or drink for now. pt verbalize understanding. Denies any abdominal pain and already had bowel movement.
--- NOTE | 2022-05-29 19:06 | NUR ---
BM- PT JUST ANOTHER LARGE BOWEL MOVEMENT.
[2022-05-29] MEDS: DOXEPINE (SINEQUAN) 25 MG CAP PO SCH (22:03)
[2022-05-29] MEDS: ENOXAPARIN SODIUM 40 MG/0.4 ML SYRINGE SUBCUT SCH (22:04)
[2022-05-30 08:00] VITALS: BP_SYST 101
--- NOTE | 2022-05-30 08:00 | NUR ---
INITIAL NOTES RECEIVED PATIENT AWAKE , VITAL SIGNS STABLE, NO C/O SOB. LEFT UPPER ARM MIDLINE PATIENT. PATIENT NOT EATING DUE TO EPISODE OF VOMITING FROM PREVIOUS SHIFT. TPN AND LIPIDS WAS NOT ADMINISTERED LAST NIGHT AND IV PUMP WAS OFF. WILL CONTINUE TO MONITOR . PATIENT CALL LIGHT W/IN REACHED
--- NOTE | 2022-05-30 08:10 | NUR ---
TPN SYSTEM WAS DOWN TPN AND IV FLUIDS ADMINISTERED AT THIS TIME. LIPIDS NOT AVAILABLE WILL CALL PHARMACY.
[2022-05-30] MEDS: DOCUSATE SODIUM 100 MG CAPSULE PO SCH ×2 (09:00→21:00)
[2022-05-30] MEDS: MILK OF MAGNESIA 30 ML UDC PO SCH (09:00)
[2022-05-30] MEDS: LevALBUTEROL HCL 1.25 MG/0.5 ML *CONC.* VIAL.NEB (XOPENEX CONC.) INH PRN (09:33)
[2022-05-30] MEDS: NICOTINE 21 MG/24 HR PATCH.TD24 TD SCH (10:11)
[2022-05-30] MEDS: QUEtiapine FUMARATE 100 MG TABLET PO SCH ×3 (10:12→21:00)
[2022-05-30] MEDS: PANTOPRAZOLE SODIUM 40 MG TAB PO SCH (10:12)
[2022-05-30] MEDS: GABAPENTIN 400 MG CAPSULE PO SCH ×2 (10:12→15:00)
[2022-05-30] MEDS: ONDANSETRON HCL 4 MG/2 ML VIAL IVP PRN (10:13)
[2022-05-30] MEDS: DEUTETRABENAZINE PO SCH ×2 (10:20→10:22)
[2022-05-30] MEDS: KCL 20 mEq in D5/0.45NS 1000mL 1,000 ML IV SCH ×2 (10:21→11:00)
--- NOTE | 2022-05-30 10:47 | NUR ---
LABS PATIENT REFUSED AM LABS FOR THE SECOND TIME
[2022-05-30 11:07] VITALS: BP_SYST 101
[2022-05-30 11:41] VITALS: BP_SYST 147
--- NOTE | 2022-05-30 13:45 | NUR ---
ROUNDING NOTES PATIENT RESTING IN BED COMFORTABLE, NO C/O N/V OR PAIN AT THIS TIME.
[2022-05-30 15:22] VITALS: BP_SYST 144
[2022-05-30] MEDS: cefTRIAXone 1 GM in D5W 50 ML IV SCH (17:28)
--- NOTE | 2022-05-30 18:25 | NUR ---
CLOSING NOTE PATIENT RESTING IN BED PROVIDE BLANKET FOR COMFORT. NO C/O N/V OR DISTRESS. TPN/LIPIDS INFUSING, REFUSING TO EAT FOR NOW.
[2022-05-30 19:14] VITALS: BP_SYST 166
--- NOTE | 2022-05-30 19:15 | NUR ---
Notes- Patient start shivering ,and has increase heart rate. check v/s signs and patient has fever of 101.2. blood sugar is 182. Dr. devlinium here and seen patient at bedside. New orders received. Will endorse.
--- NOTE | 2022-05-30 19:20 | NUR ---
TEMPERATURE 101.2 Upon receiving report on patient, pt had increase in temperature to 101.2. Doctor is present and has ordered 650 Liquid Tylenol to reduce fever STAT. Patient is flushed, trembling, and sweating on hairline. Other cooling measures implemented and resulted in lowering temperature to 98.4.
[2022-05-30] MEDS ORDERED: ACETAMINOPHEN 650 MG SUPP.RECT RC PRN (19:30)
[2022-05-30] MEDS ORDERED: ACETAMINOPHEN 325 MG TABLET PO ONE (19:45)
[2022-05-30 20:00] VITALS: BP_SYST 166
[2022-05-30] MEDS: BUDESONIDE 0.5 MG/2 ML AMPUL.NEB INH SCH (20:03)
[2022-05-30] MEDS: ACETAMINOPHEN 650 MG/20.3 ML UDC PO PRN (20:35)
[2022-05-30] MEDS: FAT EMULSIONS 250 ML IV SCH (21:00)
--- NOTE | 2022-05-30 22:00 | NUR ---
Late Medication Administration Evening medication were given late d/t patient care: cooling measures to reduce temperature, esmer care, and linen changes. Earlier when administrating liquid Tylenol with syringe PO, pt was having difficult time swallowing d/t tongue's constant flickering (neurological condition) pushing medication out. Scheduled meds where crushed and mixed with small amount of pudding but pt unable to swallow again d/t tongue. The attempt was there and pt never refused. The pt was able to swallow 3 pills simultaneously night before. Swallow evaluation may be a consideration once pt stabilizes and feels better.
[2022-05-31] VITALS: BP_SYST 138; BP_SYST 139
[2022-05-31] MEDS: GABAPENTIN 400 MG CAPSULE PO SCH ×4 (01:19→22:58)
[2022-05-31] MEDS: ENOXAPARIN SODIUM 40 MG/0.4 ML SYRINGE SUBCUT SCH ×2 (01:19→22:58)
[2022-05-31] MEDS: QUEtiapine FUMARATE 100 MG TABLET PO SCH ×3 (01:20→22:58)
[2022-05-31] MEDS: DOXEPINE (SINEQUAN) 25 MG CAP PO SCH ×2 (01:21→22:58)
[2022-05-31] MEDS: DEUTETRABENAZINE PO SCH ×3 (01:24→22:59)
[2022-05-31] MEDS: TPN PERIPHERAL IV SCH ×9 (01:53)
[2022-05-31] MEDS: POTASSIUM CHLORIDE IV SCH ×9 (01:53)
[2022-05-31] MEDS: [UNRECOGNIZED DRUG - OTHER] IV SCH ×9 (01:53)
[2022-05-31] MEDS: SODIUM CHLORIDE IV SCH ×9 (01:53)
[2022-05-31] MEDS: CEFEPIME 1 GM in D5W 50 ML IV SCH ×3 (01:54→22:48)
[2022-05-31] MEDS: VANCOMYCIN HCL 1,000 MG in NS 250 ML IV SCH ×3 (01:54→23:50)
[2022-05-31] MEDS: KCL 20 mEq in D5/0.45NS 1000mL 1,000 ML IV SCH ×3 (01:55→23:51)
[2022-05-31] MEDS: MORPHINE 2 MG/ML INJ. SYRINGE IVP PRN (03:55)
[2022-05-31] MEDS: BUDESONIDE 0.5 MG/2 ML AMPUL.NEB INH SCH ×2 (07:00→20:15)
--- NOTE | 2022-05-31 07:15 | NUR ---
PHYSICAL THERAPY CO-SIGN The Physical Therapy Progress Notes documented by [facility] have been reviewed. Reviewed/Co-Signed by: Tj Walton Documentation Done by: NASIM PINEDA PTA Addendum: 05/31/22 at 0715 by Tj Walton PT Amended: Links added.
[2022-05-31 07:50] LABS: BASOPHILS % (AUTO) 0.3 % (0.0-2.0); HEMATOCRIT 30.6 % (36-48); LYMPHOCYTES # (AUTO) 0.2 K/uL (1.0-5.5); LYMPHOCYTES % (AUTO) 8.9 % (20.5-51.5); MEAN CORPUSCULAR VOLUME 88 fL (79.0-98.0); MONOCYTES # (AUTO) 0.3 K/uL (0.0-1.0); MONOCYTES % (AUTO) 10.5 % (1.7-9.3); NEUTROPHILS # (AUTO) 2.1 K/uL (1.8-7.7); NEUTROPHILS % (AUTO) 80.3 % (40.0-70.0); PLATELET COUNT (AUTO) 164 K/uL (130-430); RED BLOOD CELL COUNT(AUTO) 3.48 MIL/uL (4.2-6.2); RED CELL DISTRIBUTION WIDTH 14.4 % (9.0-15.0)
[2022-05-31 08:13] LABS: ALBUMIN 1.8 g/dL (3.4-4.8); CALCIUM 8.3 mg/dL (8.4-11.0); CREATININE 0.8 mg/dL (0.55-1.30); PHOSPHORUS 1.7 mg/dL (2.7-4.5); TOTAL BILIRUBIN 0.3 mg/dL (0.0-1.0)
[2022-05-31] MEDS: DOCUSATE SODIUM 100 MG CAPSULE PO SCH ×2 (08:35→22:58)
[2022-05-31] MEDS: MILK OF MAGNESIA 30 ML UDC PO SCH (08:55)
[2022-05-31] MEDS: PANTOPRAZOLE SODIUM 40 MG TAB PO SCH (08:55)
[2022-05-31] MEDS: NICOTINE 21 MG/24 HR PATCH.TD24 TD SCH (08:55)
[2022-05-31 09:05] VITALS: BP_SYST 136
[2022-05-31 10:20] LABS: WHITE BLOOD COUNT (AUTO) 2.6 K/uL (4.8-10.8)
[2022-05-31 12:00] VITALS: BP_SYST 110
--- NOTE | 2022-05-31 12:44 | NUR ---
Discharge Planning: DCP faxed pt referral to [facility] [phone], [facility] [phone], [facility] does not do TPN. DCP to follow up
[2022-05-31] MEDS: ACETAMINOPHEN 650 MG/20.3 ML UDC PO PRN (12:50)
[2022-05-31 14:44] LABS: CLARITY/URINE CLEAR (CLEAR); COLOR,URINE YELLOW (YELLOW); PH,URINE 6.5 (5.0-8.0)
[2022-05-31 14:45] LABS: BILIRUBIN,URINE NEGATIVE (NEGATIVE); BLOOD, URINE 1+ (NEGATIVE); GLUCOSE,URINE NEGATIVE (NEGATIVE); KETONES,URINE NEGATIVE (NEGATIVE); LEUKOCYTE ESTERASE ,URINE NEGATIVE (NEGATIVE); NITRITE, URINE NEGATIVE (NEGATIVE); PROTEIN URINE 1+ (NEGATIVE); UROBILINOGEN,URINE 0.2 (0.2-1.0)
[2022-05-31 14:46] LABS: BACTERIA,URINE None Seen /HPF (None Seen); MUCUS,URINE None Seen /LPF (None Seen); RBC,URINE 20-50 /HPF (0-3); WBC,URINE 0-3 /HPF (0-3)
--- NOTE | 2022-05-31 15:07 | NUR ---
Nutrition F/U RD reviewed pt's current EMR including diet Hx, physician notes, nursing notes, pertinent labs/meds/procedures, care trends, and care activity. Shortened note d/t high RD workload. Admitting Diagnosis: Complete Rectal Prolapse Medical Hx: Per EMR: 66 YOF who transferred from [facility] for evaluation/ treatment of rectal prolapse. Patient found with anemia and COPD. Patient is pending colonoscopy and prolapse treatment. Visual NFPE completed d/t patient falling asleep during interview plus seen with blankets covering the bottom half of her body: Moderate - Severe fat loss: orbitals and triceps; Moderate - Severe muscle wasting: temples, clavicles, and shoulders -- PMHx: long history of psychological disorder, chronic smoker -- Sx Hx: tummy tuck, silicone breast implants Subjective Information: RDN visited the patient at bedside. Patient reports poor appetite and not feeling well. Per RN, patient is spiking a fever and since then her appetite has been declining. Parenteral nutrition was seen running at goal rate: D20 AA8.5% @ 50 mL/hr + IL20% @ 5 mL/hr via peripheral line. PPN provides: 1507 kcal, 72g protein, and 1440 mL fluids (GIR 3.5). Together, PO intake and PPN provides 2767 kcal and 122 g protein, exceeding nutrient needs. Current Diet Order/Nutrition Support: Regular diet x 4 days PPN - D20% AA8.5% @ 60mL/hr + 20%ILE @ 5 mL/hr x 1 day Weight Status: Underweight (BMI <21 for 65+) GI symptoms: None, per patient/ EMR 05/31 Last BM: 05/30 x 2 Skin Integrity Comment: Venancio 14: abdominal incision; right arm erythema 05/30 No edema noted per EMR Current % PO 42.5% average PO x 8 meals per EMR; Combined with PPN exceeds nutrient needs PO intake declining Estimated Energy Expenditure (kcals/day) 3897-7070 (30-35 kcal/kg IBW d/t GERIAT, BMI <21, Sx healing) Estimated Protein Required (g/day) 64-96 (1-1.5 g/kg IBW d/t GERIAT, BMI <21, Sx healing) Estimated Fluid Required (l/day) 2-2.2 (1mL/kcal for maintenance) Problem/Etiology/Signs/Symptoms * Severe unintentional weight loss r/t suspected long-term inadequate oral intake a/e/b patient endorses 24lb and 16% weight loss x 6 months. (Ongoing) * Inadequate oral intake r/t clear liquid diet order a/e/b CLD provides 1531 kcal/day and 50g pro/day; 89% estimated energy needs and 78% estimated pro/day. (Resolved on regular diet) Expected Outcomes/Goals -- PO intake provides >85% estimated nutrient needs, slow wt gain w/in 1-2lbs per wk, skin integrity, nutrition-related labs trending WNL, improvements in bowel function, BM q1-3 days Dietitian Recommendations * Continue regular diet, as tolerated * Ensure Enlive daily (provides additional 350 kcal and 13g protein/day) * Recommend d/c PPN if patient tolerating >65% PO diet: D20%, AA8.5% at 60 ml/hr (goal rate), IL20% at 5 ml/hr via peripheral line -- Provides (w/ current PO intake): 2767 kcal and 122 g protein/day, 1440 mL volume per day with GIR 3.5 mg CHO/kg/min -- Meets: 114% of upper end of estimated caloric needs and 127% of upper end of estimated protein needs (exceeding) High Risk F/U 2-3 days: 06/02-06/03
--- NOTE | 2022-05-31 15:11 | NUR ---
Dietitian Recommendations * Continue regular diet, as tolerated * Ensure Enlive daily (provides additional 350 kcal and 13g protein/day) * Recommend d/c PPN if patient tolerating >65% PO diet: D20%, AA8.5% at 60 ml/hr (goal rate), IL20% at 5 ml/hr via peripheral line -- Provides (w/ current PO intake): 2767 kcal and 122 g protein/day, 1440 mL volume per day with GIR 3.5 mg CHO/kg/min -- Meets: 114% of upper end of estimated caloric needs and 127% of upper end of estimated protein needs (exceeding) Please refer to nutrition assessment for details. thanks! CC, MPH, RDN
[2022-05-31 16:00] VITALS: BP_SYST 102
--- NOTE | 2022-05-31 16:14 | NUR ---
WITHELD PT TREATMENT PER RN (MINOO) SECONDARY TO PATIENT NOT MEDICALLY STABLE FOR PHYSICAL THERAPY SESSION FOR TODAY.
[2022-05-31 20:00] VITALS: BP_SYST 157
[2022-05-31] MEDS: FAT EMULSIONS 250 ML IV SCH (21:00)
[2022-05-31] MEDS ORDERED: SODIUM CHLORIDE IV SCH ×9 (21:00)
[2022-05-31] MEDS ORDERED: POTASSIUM CHLORIDE IV SCH ×9 (21:00)
[2022-05-31] MEDS ORDERED: TPN PERIPHERAL IV SCH ×9 (21:00)
[2022-05-31] MEDS ORDERED: [UNRECOGNIZED DRUG - OTHER] IV SCH ×9 (21:00)
[2022-06-01] VITALS: BP_SYST 130
[2022-06-01] MEDS: BUDESONIDE 0.5 MG/2 ML AMPUL.NEB INH SCH ×2 (07:00→19:00)
[2022-06-01 07:40] VITALS: BP_SYST 119
--- NOTE | 2022-06-01 07:40 | NUR ---
OPEN NOTE Received report from Nightshift nurse.Patient laying in bed resting. A/O x1-2, not really wanting to communicate needs with me at this time. Yelled at me when I asked her if she was ok. Decided to step back and just continue my assessment with out agigtating her. No notable signs of pain, SOB, or distress. Patient has Medline to MARGARET patent and on infusion pump. ABD incisions intact. Patient is on bedrest. 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 Call light is within reach, all needs met, bed is locked in lowest position. Will continue to monitor.
[2022-06-01] MEDS: PANTOPRAZOLE SODIUM 40 MG TAB PO SCH (08:39)
[2022-06-01] MEDS: MILK OF MAGNESIA 30 ML UDC PO SCH (08:39)
[2022-06-01] MEDS: GABAPENTIN 400 MG CAPSULE PO SCH ×3 (08:39→21:58)
[2022-06-01] MEDS: DOCUSATE SODIUM 100 MG CAPSULE PO SCH ×2 (08:39→21:58)
[2022-06-01] MEDS: DEUTETRABENAZINE PO SCH ×2 (08:39→21:58)
[2022-06-01] MEDS: NICOTINE 21 MG/24 HR PATCH.TD24 TD SCH (08:39)
[2022-06-01] MEDS: QUEtiapine FUMARATE 100 MG TABLET PO SCH ×3 (08:39→21:59)
[2022-06-01] MEDS: CEFEPIME 1 GM in D5W 50 ML IV SCH ×2 (09:26→22:02)
[2022-06-01 10:01] LABS: ALBUMIN 1.6 g/dL (3.4-4.8); CALCIUM 7.9 mg/dL (8.4-11.0); CREATININE 0.83 mg/dL (0.55-1.30); PHOSPHORUS 1.6 mg/dL (2.7-4.5); TOTAL BILIRUBIN 0.4 mg/dL (0.0-1.0)
[2022-06-01 10:15] LABS: BASOPHILS % (AUTO) 0.7 % (0.0-2.0); HEMATOCRIT 29.4 % (36-48); LYMPHOCYTES # (AUTO) 0.4 K/uL (1.0-5.5); LYMPHOCYTES % (AUTO) 18.3 % (20.5-51.5); MEAN CORPUSCULAR VOLUME 90 fL (79.0-98.0); MONOCYTES # (AUTO) 0.3 K/uL (0.0-1.0); MONOCYTES % (AUTO) 11.7 % (1.7-9.3); NEUTROPHILS # (AUTO) 1.5 K/uL (1.8-7.7); NEUTROPHILS % (AUTO) 69.3 % (40.0-70.0); PLATELET COUNT (AUTO) 108 K/uL (130-430); RED BLOOD CELL COUNT(AUTO) 3.28 MIL/uL (4.2-6.2); RED CELL DISTRIBUTION WIDTH 14.8 % (9.0-15.0); WHITE BLOOD COUNT (AUTO) 2.2 K/uL (4.8-10.8)
[2022-06-01] MEDS: VANCOMYCIN HCL 1,000 MG in NS 250 ML IV SCH ×2 (11:06→22:01)
--- NOTE | 2022-06-01 11:29 | NUR ---
MD Chan Spoke with MD Barker regarding potassium level. He ordered PO potassium once. Orders carried out.
[2022-06-01] MEDS ORDERED: POTASSIUM CHLORIDE 20 MEQ/PKT PACKET PO ONE (11:30)
--- NOTE | 2022-06-01 12:15 | NUR ---
Patient Rounds Patient laying in bed resting. No notable signs of pain, SOB, or distress. Call light is within reach, all needs met, bed is locked in lowest position. Will continue to monitor.
[2022-06-01 13:18] VITALS: BP_SYST 131
[2022-06-01] MEDS: ACETAMINOPHEN 650 MG/20.3 ML UDC PO PRN ×2 (14:21→22:33)
--- NOTE | 2022-06-01 16:00 | NUR ---
Patient Rounds Patient laying in bed resting. No notable signs of pain, SOB, or distress. Noted some congestion and called RT to given PRN breathing treatment and coughing. Call light is within reach, all needs met, bed is locked in lowest position. Will continue to monitor.
[2022-06-01] MEDS: KCL 20 mEq in D5/0.45NS 1000mL 1,000 ML IV SCH (16:20)
--- NOTE | 2022-06-01 16:35 | NUR ---
CONSULTATION PAGED/CALLED Reason for Consultation: [] ABNORMAL BLOOD CULTURE Person Who was Notified: [] CONSTANTINO Consulting Physician: [] DR DAVID Salesforce Administrator Specialty: [] ID Ordering Physician: [] DR DE JESUS
[2022-06-01 16:43] VITALS: BP_SYST 112
[2022-06-01] MEDS: LevALBUTEROL HCL 1.25 MG/0.5 ML *CONC.* VIAL.NEB (XOPENEX CONC.) INH PRN (16:47)
[2022-06-01] MEDS ORDERED: FLUCONAZOLE 200 mg/ NS 100 ML IV SCH (18:00)
--- NOTE | 2022-06-01 18:37 | NUR ---
CLOSING NOTE Patient laying in bed resting. A/O x1-2, not really communicating and is drowsy most of the day. No notable signs of pain, SOB, or distress. Patient has Medline to MARGARET patent and on infusion pump. ABD incisions intact. Patient is on bedrest. 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 Call light is within reach, all needs met, bed is locked in lowest position. Will endorse to nightshift nurse.
[2022-06-01 20:00] VITALS: BP_SYST 134
[2022-06-01] MEDS ORDERED: SODIUM CHLORIDE IV SCH ×10 (21:00)
[2022-06-01] MEDS: ENOXAPARIN SODIUM 40 MG/0.4 ML SYRINGE SUBCUT SCH (21:00)
[2022-06-01] MEDS ORDERED: SODIUM ACETATE IV SCH ×10 (21:00)
[2022-06-01] MEDS ORDERED: [UNRECOGNIZED DRUG - OTHER] IV SCH ×10 (21:00)
[2022-06-01] MEDS ORDERED: TPN PERIPHERAL IV SCH ×10 (21:00)
--- NOTE | 2022-06-01 21:50 | NUR ---
PAGED PAGED DOCTOR DE JESUS
[2022-06-01] MEDS: DOXEPINE (SINEQUAN) 25 MG CAP PO SCH (21:57)
[2022-06-01] MEDS: FAT EMULSIONS 250 ML IV SCH (22:09)
[2022-06-02 01:03] VITALS: BP_SYST 94
[2022-06-02] MEDS: KCL 20 mEq in D5/0.45NS 1000mL 1,000 ML IV SCH ×2 (06:09→19:30)
[2022-06-02] MEDS: BUDESONIDE 0.5 MG/2 ML AMPUL.NEB INH SCH ×2 (07:00→19:50)
--- NOTE | 2022-06-02 07:00 | NUR ---
Patient was able to take all HS meds with only 1 episode of coughing when drinking her water. Patient has since coughed and spit water out since receiving her HS meds. This nurse paged Dr. Barker at [phone] to notify him that patient was having difficulty with drinking water.
[2022-06-02 07:59] LABS: HEMATOCRIT 27.7 % (36-48); LYMPHOCYTES # (AUTO) 0.2 K/uL (1.0-5.5); LYMPHOCYTES % (AUTO) 9.7 % (20.5-51.5); MEAN CORPUSCULAR VOLUME 91 fL (79.0-98.0); MONOCYTES # (AUTO) 0.2 K/uL (0.0-1.0); MONOCYTES % (AUTO) 7.1 % (1.7-9.3); NEUTROPHILS # (AUTO) 1.7 K/uL (1.8-7.7); NEUTROPHILS % (AUTO) 82.2 % (40.0-70.0); PLATELET COUNT (AUTO) 65 K/uL (130-430); RED BLOOD CELL COUNT(AUTO) 3.05 MIL/uL (4.2-6.2); RED CELL DISTRIBUTION WIDTH 15.3 % (9.0-15.0); WHITE BLOOD COUNT (AUTO) 2.1 K/uL (4.8-10.8)
[2022-06-02 08:00] VITALS: BP_SYST 132
--- NOTE | 2022-06-02 08:11 | NUR ---
Report received from PAIGE moise for continuity of care. Patient in stable condition. No distress noted. Will continue to monitor.
--- NOTE | 2022-06-02 08:12 | NUR ---
Report received from PAIGE moise for continuity of care. Patient in stable condition. No distress noted. Will continue to monitor.
[2022-06-02 08:39] LABS: ALBUMIN 1.4 g/dL (3.4-4.8); CALCIUM 8.3 mg/dL (8.4-11.0); CREATININE 0.9 mg/dL (0.55-1.30); PHOSPHORUS 1.5 mg/dL (2.7-4.5); TOTAL BILIRUBIN 0.4 mg/dL (0.0-1.0)
[2022-06-02] MEDS: QUEtiapine FUMARATE 100 MG TABLET PO SCH ×2 (08:59→21:28)
[2022-06-02] MEDS: GABAPENTIN 400 MG CAPSULE PO SCH ×3 (08:59→21:27)
[2022-06-02] MEDS: PANTOPRAZOLE SODIUM 40 MG TAB PO SCH (09:00)
[2022-06-02] MEDS: DOCUSATE SODIUM 100 MG CAPSULE PO SCH ×2 (09:00→21:27)
[2022-06-02] MEDS: MILK OF MAGNESIA 30 ML UDC PO SCH (09:00)
[2022-06-02] MEDS: NICOTINE 21 MG/24 HR PATCH.TD24 TD SCH (09:07)
[2022-06-02] MEDS: DEUTETRABENAZINE PO SCH ×2 (09:07→21:26)
[2022-06-02] MEDS: VANCOMYCIN HCL 1,000 MG in NS 250 ML IV SCH ×2 (09:18→22:00)
[2022-06-02] MEDS: CEFEPIME 1 GM in D5W 50 ML IV SCH ×2 (10:23→21:00)
[2022-06-02 11:01] VITALS: BP_SYST 132
[2022-06-02 12:00] VITALS: BP_SYST 116
[2022-06-02] MEDS ORDERED: NS IV ONE ×2 (13:00)
[2022-06-02] MEDS ORDERED: [UNRECOGNIZED DRUG - OTHER] IV ONE ×2 (13:00)
--- NOTE | 2022-06-02 13:20 | NUR ---
Patient refused treatment today , multiple times due to not feeling well. Nursing notified
--- NOTE | 2022-06-02 14:08 | NUR ---
Took PICC line out per Dr. Rivera request. PICC line nurse made aware for assistance to start deep vein IV with U/S.
--- NOTE | 2022-06-02 14:11 | NUR ---
Paged Dr. Reynolds regarding Dr. Rivera request for PICC line out and TPN lipids stopped and new order for midline. Reported to Dr. Reynolds patient shaking, moving around, restlessness. New orders noted and carried out.
--- NOTE | 2022-06-02 14:37 | NUR ---
Deep vein IV established by PICC line nurse
[2022-06-02 16:00] VITALS: BP_SYST 120; BP_SYST 131
[2022-06-02] MEDS: ACETAMINOPHEN 650 MG/20.3 ML UDC PO PRN (16:03)
[2022-06-02] MEDS ORDERED: *PPN PER PHARMACY XX PRN ×2 (17:15→18:15)
[2022-06-02] MEDS ORDERED: DEXTROSE 50% JECT 50 ML DISP.SYRIN IVP PRN (17:15)
[2022-06-02] MEDS: FLUCONAZOLE 200 mg/ NS 100 ML IV SCH (17:53)
--- NOTE | 2022-06-02 19:00 | NUR ---
Report given to mine shifter RN for continuity of care. Patient stable condition. No distress noted. Dr. Barker said he saw patient when she was restless and said she has Tardive Dyskinesia.
[2022-06-02 20:00] VITALS: BP_SYST 106
[2022-06-02] MEDS: SODIUM ACETATE IV SCH ×11 (21:00)
[2022-06-02] MEDS: [UNRECOGNIZED DRUG - OTHER] IV SCH ×11 (21:00)
[2022-06-02] MEDS: FAT EMULSIONS 250 ML IV SCH (21:00)
[2022-06-02] MEDS: SODIUM CHLORIDE IV SCH ×11 (21:00)
[2022-06-02] MEDS: TPN PERIPHERAL IV SCH ×11 (21:00)
[2022-06-02] MEDS: DOXEPINE (SINEQUAN) 25 MG CAP PO SCH (21:27)
[2022-06-02] MEDS: KCL 20 mEq in D5NS 1000 mL 1,000 ML IV SCH (23:45)
--- NOTE | 2022-06-02 23:45 | NUR ---
Dr. Barker Incoming call from Dr. Barker. He is ordering fluids for the patient and wants to make sure that a peripheral IV is started tonight so the fluids can run. He wants D5 NS with 20meq KCL at 75 ml/hr; TORB.
--- NOTE | 2022-06-02 23:48 | NUR ---
Patient refused IV start Went to see patient and she refused IV start. She said it can wait for the morning. I explained that she needs fluids for hydration, the doctor called and ordered them. She yelled and said, "I don't need them now, I don't care".
[2022-06-03 00:19] VITALS: BP_SYST 95
--- NOTE | 2022-06-03 05:32 | NUR ---
SPOKE WITH DR. DE JESUS R/T PATIENT WITH NO PIV ACCESS AND PLATELETE COUNT OF 65. NEW ORDERS RECEIVED TO DC LOVENOX, INSERT MIDLINE AND CONSULT DR. TORRES, HEMOTOLOGY.
--- NOTE | 2022-06-03 05:51 | NUR ---
ELTON RN, CHARGE NURSE SPOKE WITH DR. DE JESUS AND WAS INSTRUCTED TO INSERT PIV FOR IVF, PATIENT REFUSED.
--- NOTE | 2022-06-03 06:34 | NUR ---
PATIENT REFUSED TO LET RN PLACE PIV, REFUSED BLOOD GLUCOSE CHECK AND REFUSED TO SIGN CONSENT FOR MIDLINE PLACEMENT. PATIENT STATED THAT SHE WANTED TO WAIT UNTIL LATER. CHARGE NURSE ELTON NOTIFIED.
[2022-06-03] MEDS: BUDESONIDE 0.5 MG/2 ML AMPUL.NEB INH SCH ×2 (07:00→19:00)
[2022-06-03 07:51] VITALS: BP_SYST 100
--- NOTE | 2022-06-03 07:58 | NUR ---
Report received from shift engineer RN for continuity of care. Patient resting at the moment.
[2022-06-03 08:58] LABS: ALBUMIN 1.4 g/dL (3.4-4.8); CALCIUM 8.5 mg/dL (8.4-11.0); CREATININE 0.94 mg/dL (0.55-1.30); PHOSPHORUS 1.9 mg/dL (2.7-4.5); TOTAL BILIRUBIN 0.6 mg/dL (0.0-1.0)
[2022-06-03] MEDS: CEFEPIME 1 GM in D5W 50 ML IV SCH ×2 (09:00→20:49)
[2022-06-03] MEDS: MILK OF MAGNESIA 30 ML UDC PO SCH (09:00)
[2022-06-03] MEDS: MAG-AL HYDROX/SIMETH 30 ML UDC PO PRN (09:02)
[2022-06-03] MEDS: DOCUSATE SODIUM 100 MG CAPSULE PO SCH ×2 (09:03→20:21)
[2022-06-03] MEDS: NICOTINE 21 MG/24 HR PATCH.TD24 TD SCH (09:03)
[2022-06-03] MEDS: PANTOPRAZOLE SODIUM 40 MG TAB PO SCH (09:04)
[2022-06-03] MEDS: GABAPENTIN 400 MG CAPSULE PO SCH ×3 (09:04→20:22)
[2022-06-03] MEDS: QUEtiapine FUMARATE 100 MG TABLET PO SCH ×2 (09:04→20:22)
[2022-06-03] MEDS: DEUTETRABENAZINE PO SCH ×2 (09:05→20:22)
--- NOTE | 2022-06-03 09:30 | NUR ---
Spoke with Dr. Barker regarding patient hard IV stick and called two other nurses to try. IV unsuccessful. New orders for midline placement. Nursing complaint supervisor made aware for IV nurse outside to come assist.
[2022-06-03] MEDS: VANCOMYCIN HCL 1,000 MG in NS 250 ML IV SCH ×2 (10:00→21:23)
[2022-06-03 11:10] VITALS: BP_SYST 121
[2022-06-03] MEDS: IBUPROFEN 800 MG TABLET PO PRN (11:29)
[2022-06-03] MEDS: KCL 20 mEq in D5NS 1000 mL 1,000 ML IV SCH (13:05)
[2022-06-03 14:21] LABS: HEMATOCRIT 27.5 % (36-48); MEAN CORPUSCULAR VOLUME 88 fL (79.0-98.0); PLATELET COUNT (AUTO) 65 K/uL (130-430); RED BLOOD CELL COUNT(AUTO) 3.11 MIL/uL (4.2-6.2); RED CELL DISTRIBUTION WIDTH 15.5 % (9.0-15.0); WHITE BLOOD COUNT (AUTO) 3.1 K/uL (4.8-10.8)
[2022-06-03] MEDS ORDERED: methylPREDNISolone SOD SUCC/PF 62.5 MG/ML VIAL IVP ONE (14:30)
--- NOTE | 2022-06-03 15:20 | NUR ---
Nutrition F/U RD reviewed pt's current EMR including diet Hx, physician notes, nursing notes, pertinent labs/meds/procedures, care trends, and care activity. Shortened note d/t high RD workload. Admitting Diagnosis: Complete Rectal Prolapse Medical Hx: Per EMR: 66 YOF who transferred from [facility] for evaluation/ treatment of rectal prolapse. Patient found with anemia and COPD. Patient is pending colonoscopy and prolapse treatment. Visual NFPE completed d/t patient falling asleep during interview plus seen with blankets covering the bottom half of her body: Moderate - Severe fat loss: orbitals and triceps; Moderate - Severe muscle wasting: temples, clavicles, and shoulders -- PMHx: long history of psychological disorder, chronic smoker -- Sx Hx: tummy tuck, silicone breast implants Subjective Information: PPN notifications received 06/02/22 1712 and 1811. Per EMR review, pt continues w/ respiratory failire, COPD, s/p rectal prolapse Sx, psych illness, fungemia (most likely line sepsis) a/w final cultures report and plan for another midline placement; no current IV site available for PPN support. RD met w/ pt at bedside. She attested to consistent lack of appetite, but trying to eat what she can -- enjoys Ensure ONS (all flavors) and cold foods. Pt is not receiving Ensure Pudding TID as [facility] does not readily carry this product -- supplementation modification warranted. Pt is not yet meeting optimal nutritional needs. Ht: 5'8" Wt: 126#/57.3 kg (05/16) UBW: 150# (1 year ago) per pt CBW: 127# per bedcale wt taken by RD 06/03 Current Diet Order/Nutrition Support: Regular, Ensure Pudding TID x0 days Weight Status: Underweight (BMI <21 for 65+) GI symptoms: None, per patient/ EMR 05/31 Last BM: x1 today, constipation reported per pt Skin Integrity Comment: Venancio 14: abdominal incision; right arm erythema 05/30 No edema noted per EMR Current % PO 43% average PO x7 meals per EMR Estimated Energy Expenditure (kcals/day) 8786-3509 (30-35 kcal/kg IBW d/t GERIAT, BMI <21, Sx healing) Estimated Protein Required (g/day) 64-96 (1-1.5 g/kg IBW d/t GERIAT, BMI <21, Sx healing) Estimated Fluid Required (l/day) 2-2.2 (1mL/kcal for maintenance) Problem/Etiology/Signs/Symptoms *MODIFIED* * Severe unintentional weight loss r/t suspected long-term inadequate oral intake a/e/b patient endorses 24lb and 16% weight loss x 6 months. (Ongoing) * Inadequate oral intake r/t clear liquid diet order a/e/b CLD provides 1531 kcal/day and 50g pro/day. (Ongoing, now on Regular diet) Expected Outcomes/Goals -- PO intake provides >85% estimated nutrient needs, slow wt gain w/in 1-2lbs per wk, skin integrity, nutrition-related labs trending WNL, improvements in bowel function, BM q1-3 days Dietitian Recommendations * Regular diet, Ensure Enlive TID, Piotr BID (supplements yield 1230 kcal/day, 65 gm protein/day) * Encourage increase PO intakes * If/when medically appropriate, consider PPN D20%, AA8.5% at 75 ml/hr, IL20% at 5 ml/hr via peripheral line Provides: 1158 kcal/day, 77 gm protein/day, 1920 ml total volume/day, and GIR: 2.2 gm CHO/kg/min Meets: 60% of lower end of estimated caloric needs and 80% of upper end of estimated protein needs High Risk F/U 2-3 days
--- NOTE | 2022-06-03 15:25 | NUR ---
Dietitian Recommendations * Regular diet, Ensure Enlive TID, Piotr BID (supplements yield 1230 kcal/day, 65 gm protein/day) * Encourage increase PO intakes * If/when medically appropriate, consider PPN D20%, AA8.5% at 75 ml/hr, IL20% at 5 ml/hr via peripheral line Provides: 1158 kcal/day, 77 gm protein/day, 1920 ml total volume/day, and GIR: 2.2 gm CHO/kg/min Meets: 60% of lower end of estimated caloric needs and 80% of upper end of estimated protein needs LP, MS, RD Please refer to Nutrition F/U for details.
--- NOTE | 2022-06-03 15:36 | NUR ---
Patient unable to have bowel movement at this time so stool is not collected yet.
[2022-06-03] MEDS: ACETAMINOPHEN 650 MG/20.3 ML UDC PO PRN (15:45)
[2022-06-03 16:45] VITALS: BP_SYST 110
[2022-06-03] MEDS: SUCRALFATE 1 GM TABLET PO SCH ×2 (17:00→17:14)
[2022-06-03] MEDS: FLUCONAZOLE 200 mg/ NS 100 ML IV SCH ×2 (17:15→18:44)
[2022-06-03 18:21] LABS: BAND % (MANUAL) 14 % (0-6); BASOPHILS % (MANUAL) 0 % (0-2); EOSINOPHILS % (MANUAL) 0 % (0-7); LYMPHOCYTES % (MANUAL) 24 % (20-46); MONOCYTES % (MANUAL) 16 % (0-11)
[2022-06-03] MEDS: SODIUM CHLORIDE IV SCH ×11 (18:41)
[2022-06-03] MEDS: TPN PERIPHERAL IV SCH ×11 (18:41)
[2022-06-03] MEDS: [UNRECOGNIZED DRUG - OTHER] IV SCH ×11 (18:41)
[2022-06-03] MEDS: SODIUM ACETATE IV SCH ×11 (18:41)
[2022-06-03] MEDS: FAT EMULSIONS 250 ML IV SCH (18:43)
--- NOTE | 2022-06-03 19:01 | NUR ---
midline IV started by PICC nurse. No distress noted.
--- NOTE | 2022-06-03 19:01 | NUR ---
Report given to weight shifter RN for continuity of care. Patient in stable condition. No distress indicated. IV TPN and fluids and antibiotics restarted.
--- NOTE | 2022-06-03 19:01 | NUR ---
Report given to operations supervisor 2nd shift RN for continuity of care. Patient in stable condition. No distress indicated.
--- NOTE | 2022-06-03 19:35 | NUR ---
OPENING NOTE PT IS IN BED WITH EYES OPEN. NO APPARENT SIGNS OF DISTRESS NOTED AT THIS TIME. BED IS IN LOWEST POSITION WITH FALL AND SAFETY PRECAUTIONS IN PLACE. CALL LIGHT WITHIN REACH, PT EDUCATED ON HOW TO USE IT. ALL NEEDS MET AT THIS TIME.
[2022-06-03 20:00] VITALS: BP_SYST 95
[2022-06-03] MEDS: DOXEPINE (SINEQUAN) 25 MG CAP PO SCH (20:21)
[2022-06-03] MEDS: methylPREDNISolone SOD SUCC/PF 62.5 MG/ML VIAL IVP SCH (21:26)
[2022-06-04 01:09] VITALS: BP_SYST 116
[2022-06-04] MEDS: KCL 20 mEq in D5NS 1000 mL 1,000 ML IV SCH ×2 (01:57→16:14)
--- NOTE | 2022-06-04 06:15 | NUR ---
PT REFUSING PT REFUSING BLOOD SUGAR CHECK AND 0700 MED. PT EDUCATED ON IMPORTANCE, STILL REFUSING
[2022-06-04] MEDS: methylPREDNISolone SOD SUCC/PF 62.5 MG/ML VIAL IVP SCH ×3 (06:16→21:26)
[2022-06-04] MEDS: SUCRALFATE 1 GM TABLET PO SCH ×2 (06:25→08:24)
[2022-06-04] MEDS: BUDESONIDE 0.5 MG/2 ML AMPUL.NEB INH SCH ×2 (07:00→20:32)
--- NOTE | 2022-06-04 07:01 | NUR ---
CLOSING NOTE PT IS LYING IN BED WITH EYES CLOSED. NO APPARENT DISTRESS NOTED AT THIS TIME. BED IS IN LOWEST POSITION WITH CALL LIGHT WITHIN REACH. IV FLUIDS RUNNING ORDERED
[2022-06-04 07:28] VITALS: BP_SYST 147
--- NOTE | 2022-06-04 07:29 | NUR ---
Report received from night time babysitter RN for continuity of care. Patient stable condition. No distress noted.
--- NOTE | 2022-06-04 08:00 | NUR ---
0800: Patient refused insulin in morning.
[2022-06-04] MEDS: DOCUSATE SODIUM 100 MG CAPSULE PO SCH ×2 (08:24→21:25)
[2022-06-04] MEDS: QUEtiapine FUMARATE 100 MG TABLET PO SCH ×2 (08:24→21:25)
[2022-06-04] MEDS: MILK OF MAGNESIA 30 ML UDC PO SCH (08:24)
[2022-06-04] MEDS: GABAPENTIN 400 MG CAPSULE PO SCH ×3 (08:24→21:26)
[2022-06-04] MEDS: CEFEPIME 1 GM in D5W 50 ML IV SCH ×2 (08:25→21:25)
--- NOTE | 2022-06-04 08:28 | NUR ---
patient bs [id number]
[2022-06-04] MEDS: DEUTETRABENAZINE PO SCH ×2 (09:00→21:26)
[2022-06-04] MEDS: VANCOMYCIN HCL 1,000 MG in NS 250 ML IV SCH ×2 (10:00→23:37)
[2022-06-04] MEDS: NICOTINE 21 MG/24 HR PATCH.TD24 TD SCH (10:44)
[2022-06-04] MEDS ORDERED: MICAFUNGIN SODIUM 100 MG in NS 100 ML IV SCH (11:30)
[2022-06-04 11:36] VITALS: BP_SYST 156
[2022-06-04 11:39] LABS: ALBUMIN 1.4 g/dL (3.4-4.8); CREATININE 0.94 mg/dL (0.55-1.30); PHOSPHORUS 2.1 mg/dL (2.7-4.5); TOTAL BILIRUBIN 0.3 mg/dL (0.0-1.0)
[2022-06-04] MEDS: INSULIN REGULAR, HUMAN 100 UNITS/ML, 3 ML VIAL (humuLIN R) SUBCUT PRN ×2 (12:17→17:01)
[2022-06-04 12:29] LABS: CALCIUM 8.8 mg/dL (8.4-11.0)
[2022-06-04 15:32] VITALS: BP_SYST 149
[2022-06-04 15:47] LABS: BASOPHILS % (AUTO) 1.1 % (0.0-2.0); EOSINOPHILS % (AUTO) 0.1 % (0.0-4.0); HEMATOCRIT 27.3 % (36-48); LYMPHOCYTES # (AUTO) 1.5 K/uL (1.0-5.5); MEAN CORPUSCULAR VOLUME 90 fL (79.0-98.0); MONOCYTES # (AUTO) 0.2 K/uL (0.0-1.0); MONOCYTES % (AUTO) 4.4 % (1.7-9.3); NEUTROPHILS # (AUTO) 2.2 K/uL (1.8-7.7); NEUTROPHILS % (AUTO) 56.3 % (40.0-70.0); PLATELET COUNT (AUTO) 58 K/uL (130-430); RED BLOOD CELL COUNT(AUTO) 3.03 MIL/uL (4.2-6.2); RED CELL DISTRIBUTION WIDTH 15.8 % (9.0-15.0); RETICULOCYTE COUNT 0.3 % (0.5-1.5); WHITE BLOOD COUNT (AUTO) 3.9 K/uL (4.8-10.8)
--- NOTE | 2022-06-04 17:04 | NUR ---
Patient stool attempted to collect but was disposed already.
--- NOTE | 2022-06-04 20:00 | NUR ---
RECIEVED PT FROM AM SHIFTPT IS IN BED WITH EYES OPEN. PT RUNING TPN, AND LIPIDS. ABXSCHED FOR PM. NO APPARENT SIGNS OF DISTRESS NOTED AT THIS TIME. BED IS IN LOWEST POSITION WITH FALL AND SAFETY PRECAUTIONS IN PLACE. CALL LIGHT WITHIN REACH, PT EDUCATED ON HOW TO USE IT. ALL NEEDS MET AT THIS TIME. QUINTIN CONTINUE TO MONITOR.
[2022-06-04 20:21] VITALS: BP_SYST 169
[2022-06-04 20:22] VITALS: BP_SYST 168
[2022-06-04 20:53] LABS: TOTAL IRON BIND. CAPACITY 200 ug/dL (250-450)
[2022-06-04 21:16] LABS: LYMPHOCYTES % (AUTO) 38.1 % (20.5-51.5)
[2022-06-04] MEDS: DOXEPINE (SINEQUAN) 25 MG CAP PO SCH (21:26)
[2022-06-04] MEDS: SODIUM CHLORIDE IV SCH ×11 (23:35)
[2022-06-04] MEDS: SODIUM ACETATE IV SCH ×11 (23:35)
[2022-06-04] MEDS: TPN PERIPHERAL IV SCH ×11 (23:35)
[2022-06-04] MEDS: [UNRECOGNIZED DRUG - OTHER] IV SCH ×11 (23:35)
[2022-06-05] VITALS: BP_SYST 148
--- NOTE | 2022-06-05 | NUR ---
pT RESTING COMFORTABLY IN BED. tpn AND LIPIND STIL RUNING FROM pm MEDS. pT IS ANXIOUS, BUT COPERATIVE.
[2022-06-05] MEDS: methylPREDNISolone SOD SUCC/PF 62.5 MG/ML VIAL IVP SCH ×3 (06:05→23:29)
[2022-06-05] MEDS: SUCRALFATE 1 GM TABLET PO SCH ×2 (06:05→19:59)
[2022-06-05] MEDS: KCL 20 mEq in D5NS 1000 mL 1,000 ML IV SCH ×2 (06:34→19:53)
[2022-06-05] MEDS: BUDESONIDE 0.5 MG/2 ML AMPUL.NEB INH SCH ×2 (07:43→20:51)
[2022-06-05 07:48] VITALS: BP_SYST 149
[2022-06-05 08:30] LABS: BASOPHILS % (AUTO) 0.6 % (0.0-2.0); HEMATOCRIT 25.5 % (36-48); LYMPHOCYTES # (AUTO) 2.2 K/uL (1.0-5.5); LYMPHOCYTES % (AUTO) 25.7 % (20.5-51.5); MEAN CORPUSCULAR VOLUME 89 fL (79.0-98.0); MONOCYTES # (AUTO) 0.6 K/uL (0.0-1.0); MONOCYTES % (AUTO) 7.1 % (1.7-9.3); NEUTROPHILS # (AUTO) 5.8 K/uL (1.8-7.7); NEUTROPHILS % (AUTO) 66.6 % (40.0-70.0); PLATELET COUNT (AUTO) 83 K/uL (130-430); RED BLOOD CELL COUNT(AUTO) 2.87 MIL/uL (4.2-6.2); RED CELL DISTRIBUTION WIDTH 15.7 % (9.0-15.0); WHITE BLOOD COUNT (AUTO) 8.7 K/uL (4.8-10.8)
[2022-06-05] MEDS: MILK OF MAGNESIA 30 ML UDC PO SCH ×2 (09:00→09:10)
[2022-06-05] MEDS: DOCUSATE SODIUM 100 MG CAPSULE PO SCH ×2 (09:00→20:46)
[2022-06-05] MEDS: GABAPENTIN 400 MG CAPSULE PO SCH ×3 (09:10→20:43)
[2022-06-05] MEDS: QUEtiapine FUMARATE 100 MG TABLET PO SCH ×2 (09:10→20:44)
[2022-06-05] MEDS: NICOTINE 21 MG/24 HR PATCH.TD24 TD SCH (09:10)
[2022-06-05] MEDS: CEFEPIME 1 GM in D5W 50 ML IV SCH ×2 (09:12→20:46)
[2022-06-05] MEDS: DEUTETRABENAZINE PO SCH ×2 (09:13→20:45)
[2022-06-05] MEDS: VANCOMYCIN HCL 1,000 MG in NS 250 ML IV SCH ×2 (10:00→23:29)
[2022-06-05 11:04] LABS: CALCIUM 8.9 mg/dL (8.4-11.0); CREATININE 0.77 mg/dL (0.55-1.30)
[2022-06-05 11:08] LABS: ALBUMIN 1.6 g/dL (3.4-4.8); PHOSPHORUS 2.2 mg/dL (2.7-4.5); TOTAL BILIRUBIN 0.3 mg/dL (0.0-1.0)
[2022-06-05 11:36] VITALS: BP_SYST 152
[2022-06-05] MEDS: INSULIN REGULAR, HUMAN 100 UNITS/ML, 3 ML VIAL (humuLIN R) SUBCUT PRN ×2 (12:11→20:04)
--- NOTE | 2022-06-05 16:49 | NUR ---
ST EVALUATION COMPLETED. ST TX NOT INDICATED AT THIS TIME. PT REQUESTS TO CONTINUE WITH PUREE. RECOMMEND PO DIET OF PUREE/THIN LIQUID. DISTANT SUPERVISION AND FULL ASPIRATION PRECAUTIONS
[2022-06-05] MEDS: FLUCONAZOLE 200 mg/ NS 100 ML IV SCH (19:52)
[2022-06-05 20:00] VITALS: BP_SYST 150
[2022-06-05] MEDS: DOXEPINE (SINEQUAN) 25 MG CAP PO SCH (20:44)
[2022-06-05] MEDS ORDERED: TPN PERIPHERAL IV SCH ×10 (21:00)
[2022-06-05] MEDS ORDERED: [UNRECOGNIZED DRUG - OTHER] IV SCH ×10 (21:00)
[2022-06-05] MEDS ORDERED: SODIUM ACETATE IV SCH ×10 (21:00)
[2022-06-05] MEDS ORDERED: SODIUM CHLORIDE IV SCH ×10 (21:00)
[2022-06-06] MEDS: INSULIN REGULAR, HUMAN 100 UNITS/ML, 3 ML VIAL (humuLIN R) SUBCUT PRN ×4 (01:09→17:58)
[2022-06-06] MEDS: methylPREDNISolone SOD SUCC/PF 62.5 MG/ML VIAL IVP SCH ×3 (06:36→21:29)
[2022-06-06] MEDS: ACETAMINOPHEN 650 MG/20.3 ML UDC PO PRN ×2 (06:38→12:32)
[2022-06-06] MEDS: SUCRALFATE 1 GM TABLET PO SCH ×2 (07:00→17:54)
--- NOTE | 2022-06-06 07:30 | NUR ---
OPENING NOTE Patient in bed resting, denies pain and shows no sign of distress. IV site is clean, dry, intact, and running prescribed fluids. Patient updated on her plan of care, verbalized understanding. All needs met at this time and safety checks made.
[2022-06-06 07:41] LABS: ALBUMIN 1.7 g/dL (3.4-4.8); CALCIUM 8.6 mg/dL (8.4-11.0); CREATININE 0.9 mg/dL (0.55-1.30); PHOSPHORUS 2.6 mg/dL (2.7-4.5)
[2022-06-06 08:27] LABS: TOTAL BILIRUBIN 0.5 mg/dL (0.0-1.0)
[2022-06-06] MEDS: QUEtiapine FUMARATE 100 MG TABLET PO SCH ×2 (08:40→20:20)
[2022-06-06] MEDS: BUDESONIDE 0.5 MG/2 ML AMPUL.NEB INH SCH ×2 (08:40→19:40)
[2022-06-06] MEDS: DOCUSATE SODIUM 100 MG CAPSULE PO SCH ×3 (08:40→20:21)
[2022-06-06] MEDS: DEUTETRABENAZINE PO SCH ×2 (08:41→20:20)
[2022-06-06] MEDS: GABAPENTIN 400 MG CAPSULE PO SCH ×3 (08:41→20:18)
[2022-06-06] MEDS: NICOTINE 21 MG/24 HR PATCH.TD24 TD SCH (08:41)
[2022-06-06 08:51] VITALS: BP_SYST 178
[2022-06-06] MEDS ORDERED: METOPROLOL TARTRATE 50 MG TABLET PO ONE (09:30)
--- NOTE | 2022-06-06 09:30 | NUR ---
SPOKE WITH MD Spoke with Dr Barker regarding patient's elevated blood pressure; new orders received.
[2022-06-06] MEDS: KCL 20 mEq in D5NS 1000 mL 1,000 ML IV SCH ×2 (09:31→20:52)
[2022-06-06] MEDS: CEFEPIME 1 GM in D5W 50 ML IV SCH (09:31)
--- NOTE | 2022-06-06 09:55 | NUR ---
Discharge Planning: DCP faxed pt referral Shelli Naranjo [phone], Eleanor Claire [phone], [facility] DCP to follow up
--- NOTE | 2022-06-06 10:42 | NUR ---
INFORMED TANDEM MILL ROLLER SCARLET THAT THE BATTERIES IN TELE BOX NEED TO BE REPLACED
[2022-06-06] MEDS: VANCOMYCIN HCL 1,000 MG in NS 250 ML IV SCH (11:20)
[2022-06-06 11:43] VITALS: BP_SYST 169
--- NOTE | 2022-06-06 13:57 | NUR ---
ROUNDS Patient in bed resting after eating lunch. Patient continues to have a decreased appetite. Patient complaining of aching pain on her abdomen at the surgical site. Site is clean and dry, no discharge or redness. PRN tylenol provided. All needs met at this time and safety checks made.
[2022-06-06 15:27] VITALS: BP_SYST 185
--- NOTE | 2022-06-06 16:00 | NUR ---
SEGUNDO LOGAN Paged Dr Barker regarding patient's elevated blood pressure. Awaiting call back. Addendum: 06/06/22 at 1730 by Radha Breen LVN Second page for Dr Barker, spoke with answering service
[2022-06-06] MEDS: FLUCONAZOLE 200 mg/ NS 100 ML IV SCH (16:59)
--- NOTE | 2022-06-06 18:09 | NUR ---
ST EVALUATION COMPLETED. ST TX NOT INDICATED AT THIS TIME. PT ABLE TO MASTICATE MECH SOFT WITH NO DIFFICULTY BUT REQUESTS TO CONTINUE WITH PUREE. RECOMMEND PO DIET OF PUREE/THIN LIQUID. DISTANT SUPERVISION AND FULL ASPIRATION PRECAUTIONS
--- NOTE | 2022-06-06 19:34 | NUR ---
CLOSING NOTE Patient sitting up in bed, no sign of distress and denies pain. Patient updated on the plan of care, verbalized understanding. Patient's blood pressure has been elevated throughout the shift, MD paged and awaiting call back. Surgical site is clean and dry. All needs met at this time and safety checks made. Endorsed to weight shifter nurse.
[2022-06-06 20:00] VITALS: BP_SYST 166
[2022-06-06] MEDS: DOXEPINE (SINEQUAN) 25 MG CAP PO SCH (20:18)
[2022-06-06] MEDS: METOPROLOL TARTRATE 50 MG TABLET PO SCH (20:19)
[2022-06-06] MEDS ORDERED: SODIUM ACETATE IV SCH ×10 (21:00)
[2022-06-06] MEDS ORDERED: SODIUM CHLORIDE IV SCH ×10 (21:00)
[2022-06-06] MEDS ORDERED: [UNRECOGNIZED DRUG - OTHER] IV SCH ×10 (21:00)
[2022-06-06] MEDS ORDERED: TPN PERIPHERAL IV SCH ×10 (21:00)
[2022-06-06] MEDS ORDERED: amLODIPine BESYLATE 10 MG TABLET PO ONE (21:15)
[2022-06-06] MEDS: LOSARTAN POTASSIUM 50 MG TABLET (COZAAR) PO SCH (21:24)
--- NOTE | 2022-06-06 21:31 | NUR ---
Patient refused to be clean and change pads and said later , explained the risk of having rashes bedsore still refused , she alert/oriented x4 .will follow up later.
[2022-06-06] MEDS ORDERED: cloNIDine HCL 0.1 MG TABLET PO PRN (21:45)
[2022-06-06] MEDS: IBUPROFEN 800 MG TABLET PO PRN (23:53)
--- NOTE | 2022-06-07 | NUR ---
Perineal care given ,skin cream barrier applied .
[2022-06-07 00:42] VITALS: BP_SYST 158
--- NOTE | 2022-06-07 02:48 | NUR ---
PATIENT RESTING: Patient resting quietly. No acute distress noted. telemetry NSR
--- NOTE | 2022-06-07 04:28 | NUR ---
Rounds Patient is awake repositioned herself ,no sign of acute discomfort.
[2022-06-07] MEDS: methylPREDNISolone SOD SUCC/PF 62.5 MG/ML VIAL IVP SCH ×2 (05:12→16:00)
--- NOTE | 2022-06-07 05:15 | NUR ---
Perineal care given able to turn side to side , complaining of lower back pain , due pain meds given , will monitor.
[2022-06-07] MEDS: INSULIN REGULAR, HUMAN 100 UNITS/ML, 3 ML VIAL (humuLIN R) SUBCUT PRN ×3 (05:23→18:46)
[2022-06-07] MEDS: ACETAMINOPHEN 650 MG/20.3 ML UDC PO PRN (05:24)
[2022-06-07] MEDS: BUDESONIDE 0.5 MG/2 ML AMPUL.NEB INH SCH ×2 (07:00→19:00)
[2022-06-07] MEDS: SUCRALFATE 1 GM TABLET PO SCH ×2 (07:24→18:31)
--- NOTE | 2022-06-07 07:32 | NUR ---
PHYSICAL THERAPY CO-SIGN The Physical Therapy Progress Notes documented by Weapons Specialist have been reviewed. Reviewed/Co-Signed by: Tj Walton Documentation Done by: NASIM PINEDA PTA Addendum: 06/07/22 at 0732 by Tj Walton PT Amended: Links added.
[2022-06-07 07:45] LABS: BASOPHILS % (AUTO) 0.2 % (0.0-2.0); HEMATOCRIT 27.4 % (36-48); LYMPHOCYTES # (AUTO) 1.7 K/uL (1.0-5.5); LYMPHOCYTES % (AUTO) 12.2 % (20.5-51.5); MEAN CORPUSCULAR VOLUME 91 fL (79.0-98.0); MONOCYTES # (AUTO) 1.5 K/uL (0.0-1.0); MONOCYTES % (AUTO) 10.8 % (1.7-9.3); NEUTROPHILS # (AUTO) 10.6 K/uL (1.8-7.7); NEUTROPHILS % (AUTO) 76.8 % (40.0-70.0); PLATELET COUNT (AUTO) 147 K/uL (130-430); RED BLOOD CELL COUNT(AUTO) 3.02 MIL/uL (4.2-6.2); RED CELL DISTRIBUTION WIDTH 16.1 % (9.0-15.0); WHITE BLOOD COUNT (AUTO) 13.8 K/uL (4.8-10.8)
[2022-06-07 08:00] VITALS: BP_SYST 145
[2022-06-07] MEDS: DEUTETRABENAZINE PO SCH ×2 (09:00→20:22)
[2022-06-07 09:01] LABS: ALBUMIN 1.7 g/dL (3.4-4.8); CALCIUM 8.4 mg/dL (8.4-11.0); CREATININE 0.85 mg/dL (0.55-1.30); TOTAL BILIRUBIN 0.4 mg/dL (0.0-1.0)
[2022-06-07 12:00] VITALS: BP_SYST 152
[2022-06-07] MEDS: DOCUSATE SODIUM 100 MG CAPSULE PO SCH ×2 (12:23→20:20)
[2022-06-07] MEDS: QUEtiapine FUMARATE 100 MG TABLET PO SCH ×2 (12:23→20:27)
[2022-06-07] MEDS: GABAPENTIN 400 MG CAPSULE PO SCH ×3 (12:24→20:20)
[2022-06-07] MEDS: METOPROLOL TARTRATE 50 MG TABLET PO SCH ×2 (12:24→20:20)
[2022-06-07] MEDS: LOSARTAN POTASSIUM 50 MG TABLET (COZAAR) PO SCH ×2 (12:25→20:20)
[2022-06-07] MEDS: NICOTINE 21 MG/24 HR PATCH.TD24 TD SCH (12:26)
[2022-06-07] MEDS: amLODIPine BESYLATE 10 MG TABLET PO SCH (12:26)
--- NOTE | 2022-06-07 12:34 | NUR ---
PT ATTEMPTED TO INITIATE PT TREATMENT. PATIENT DECLINED, STATING SHE IS TOO FATIGUED TO PARTICIPATE.
[2022-06-07 13:04] LABS: VANCOMYCIN,RANDOM 18.3 ug/mL
[2022-06-07 16:00] VITALS: BP_SYST 157
[2022-06-07] MEDS: VANCOMYCIN HCL 1,000 MG in NS 250 ML IV SCH (16:02)
[2022-06-07] MEDS: KCL 20 mEq in D5NS 1000 mL 1,000 ML IV SCH ×2 (16:02→23:45)
[2022-06-07] MEDS: FLUCONAZOLE 200 mg/ NS 100 ML IV SCH (18:32)
--- NOTE | 2022-06-07 18:33 | NUR ---
Nutrition F/U RD reviewed pt's current EMR including diet Hx, physician notes, nursing notes, pertinent labs/meds/procedures, care trends, and care activity. Shortened note d/t high RD workload. Admitting Diagnosis: Complete Rectal Prolapse Medical Hx: Per EMR: 66 YOF who transferred from [facility] for evaluation/ treatment of rectal prolapse. Patient found with anemia and COPD. Patient is pending colonoscopy and prolapse treatment. Visual NFPE completed d/t patient falling asleep during interview plus seen with blankets covering the bottom half of her body: Moderate - Severe fat loss: orbitals and triceps; Moderate - Severe muscle wasting: temples, clavicles, and shoulders -- PMHx: long history of psychological disorder, chronic smoker -- Sx Hx: tummy tuck, silicone breast implants Subjective Information: Per EMR review, pt continues w/ respiratory failure, COPD, s/p rectal prolapse Sx, psych illness, fungemia (most likely line sepsis) a/w final cultures report. Patient seen at bedside with television on, however patient was asleep and unarousable. RD spoke with RN Natalya, who endorses patient has been drinking Ensure Enlive. Per RD chart review, patient diet order + PPN is causing overfeeding. PO intake average = 38%; includes 3 x ensure and 2 x puddings/snacks. This provides ~1867 kcals and 76g protein per day. PPN order D20 AA8.5% @ 75mL/hr x 24hr provides an additional 918 kcals, 77g protein, and 1800mL fluids per day. Combined PO + PPN equals 2785kcals and 153g protein; Current diet order equals 145% estimated energy needs and 159% estimated protein needs. Due to recent Sx and oral hx (CLD > 1 week, GI surgery) it is likely the patient will continue to have appetite changes and/or early satiety. While it may appear the patient is not consuming large amounts of each meal (only 38%), the added supplements are providing adequate kcals/protein. The patient would benefit from consuming 5-7 smaller meals daily until her appetite returns to normal, RD to discuss with pt at next visit. Parenteral nutrition is not warranted at this time as nutrition from oral intake is adequate to meet pt needs. Ht: 5'8" Wt: 126#/57.3 kg (05/16) IBW: 140#/63.6 kg UBW: 150# (1 year ago) per pt CBW: 127# per bedscale wt taken by RD 06/03 Current Diet Order/Nutrition Support: Pureed diet x 3 days; PPN D20 AA 8.5% @75mL x 24h via peripheral line x 0 days Weight Status: Underweight (BMI <21 for 65+) GI symptoms: None, per EMR 06/07 Last BM: x1 documented 06/04 Skin Integrity Comment: Venancio 16: abdominal incision; right arm/buttocks erythema 06/06 BLE +1 noted 06/06 Current % PO 38% average PO x9 meals per EMR Includes Ensure TID and pudding snacks BID - Provides 1867 kcals and 76g protein/day, adequate to meet 100% of pt nutritional needs *New Estimated Energy Expenditure (kcals/day) 8671-9138 (25-30 kcal/kg IBW d/t GERIAT, BMI <21, Sx healing) Estimated Protein Required (g/day) 64-96 (1-1.5 g/kg IBW d/t GERIAT, BMI <21, Sx healing) Estimated Fluid Required (l/day) 1.6-1.9 (1mL/kcal for maintenance) Problem/Etiology/Signs/Symptoms *MODIFIED* * Severe unintentional weight loss r/t suspected long-term inadequate oral intake a/e/b patient endorses 24lb and 16% weight loss x 6 months. (Ongoing) * Inadequate oral intake r/t clear liquid diet order a/e/b CLD provides 1531 kcal/day and 50g pro/day. (Resolved) * Excessive parenteral nutrition infusion r/t diet order a/e/b PO + EN provides 145% energy and 159% protein est daily nutritional needs; PO intake provides adequate energy and protein needs (New) Expected Outcomes/Goals -- PO intake provides >85% estimated nutrient needs, slow wt gain w/in 1-2lbs per wk, skin integrity, nutrition-related labs trending WNL, improvements in bowel function, BM q1-3 days Dietitian Recommendations * Recommend upgrade to MSoft diet, per ST, plus Ensure Enlive TID, Piotr BID (supplements yield 1230 kcal/day, 65 gm protein/day) * Encourage increase PO intakes * If pt tolerating oral diet, consider d/c PN; patient receiving excessive nutrition * Nutrition education: increased number of meals/smaller meal portions to overcome changes in GI function High Risk F/U 2-3 days
--- NOTE | 2022-06-07 18:38 | NUR ---
Dietitian Recommendations * Recommend upgrade to MSoft diet, per ST, plus Ensure Enlive TID, Piotr BID (supplements yield 1230 kcal/day, 65 gm protein/day) * Encourage increase PO intakes * If pt tolerating oral diet, consider d/c PN; patient receiving excessive nutrition * Nutrition education: increased number of meals/smaller meal portions to overcome changes in GI function Please refer to nutrition assessment for details, thanks! CC, MPH, RDN
[2022-06-07 20:00] VITALS: BP_SYST 158
[2022-06-07] MEDS: DOXEPINE (SINEQUAN) 25 MG CAP PO SCH (20:27)
[2022-06-07] MEDS ORDERED: [UNRECOGNIZED DRUG - OTHER] IV SCH ×10 (21:00)
[2022-06-07] MEDS ORDERED: TPN PERIPHERAL IV SCH ×10 (21:00)
[2022-06-07] MEDS ORDERED: SODIUM ACETATE IV SCH ×10 (21:00)
[2022-06-07] MEDS ORDERED: SODIUM CHLORIDE IV SCH ×10 (21:00)
--- NOTE | 2022-06-07 22:43 | NUR ---
Patient in bed. Turned repositioned q2. No acute distress noted. Will continue to monitor.
[2022-06-08] VITALS: BP_SYST 142
[2022-06-08] MEDS: VANCOMYCIN HCL 1,000 MG in NS 250 ML IV SCH ×2 (00:20→14:32)
--- NOTE | 2022-06-08 01:11 | NUR ---
Call placed to Dr. han awaiting return call. Calling to give blood culture results.
--- NOTE | 2022-06-08 02:15 | NUR ---
second call placed to exchange. Awaiting return call.
[2022-06-08] MEDS: ACETAMINOPHEN 650 MG/20.3 ML UDC PO PRN ×2 (04:32→21:19)
[2022-06-08] MEDS: SUCRALFATE 1 GM TABLET PO SCH ×2 (04:33→17:40)
[2022-06-08] MEDS: BUDESONIDE 0.5 MG/2 ML AMPUL.NEB INH SCH ×2 (07:00→19:00)
--- NOTE | 2022-06-08 07:30 | NUR ---
OPENING NOTE PT ALERT AND ORIENTED TO PERSON AND TIME. CONFUSED. LETHARGIC. PT DENIES ANY PAIN OR DISCOMFORT. IV RUNNING ORDERED. IV SITE REMAIN PATENT AND CLEAN. BED IS AT LOW AND LOCKED. SAFETY PRECAUTION IN PLACED. CALL LIGHT WITHIN REACH. ENCOURAGED TO USE CALL LIGHT FOR ASSISTANCE.
[2022-06-08 08:41] VITALS: BP_SYST 142
[2022-06-08] MEDS: NICOTINE 21 MG/24 HR PATCH.TD24 TD SCH (09:21)
[2022-06-08] MEDS: METOPROLOL TARTRATE 50 MG TABLET PO SCH ×2 (09:28→21:18)
[2022-06-08] MEDS: QUEtiapine FUMARATE 100 MG TABLET PO SCH ×2 (09:29→21:17)
[2022-06-08] MEDS: predniSONE 10 MG TABLET PO SCH (09:29)
[2022-06-08] MEDS: amLODIPine BESYLATE 10 MG TABLET PO SCH (09:29)
[2022-06-08] MEDS: GABAPENTIN 400 MG CAPSULE PO SCH ×3 (09:30→21:18)
[2022-06-08] MEDS: LOSARTAN POTASSIUM 50 MG TABLET (COZAAR) PO SCH ×2 (09:30→21:16)
[2022-06-08] MEDS: DOCUSATE SODIUM 100 MG CAPSULE PO SCH ×2 (09:30→21:16)
[2022-06-08] MEDS: DEUTETRABENAZINE PO SCH ×2 (09:32→21:20)
[2022-06-08 09:50] VITALS: BP_SYST 145
[2022-06-08] MEDS: LevALBUTEROL HCL 1.25 MG/0.5 ML *CONC.* VIAL.NEB (XOPENEX CONC.) INH PRN (10:29)
[2022-06-08 10:55] LABS: ALBUMIN 2.1 g/dL (3.4-4.8); CALCIUM 8.6 mg/dL (8.4-11.0); CREATININE 0.82 mg/dL (0.55-1.30); PHOSPHORUS 2.5 mg/dL (2.7-4.5); TOTAL BILIRUBIN 0.6 mg/dL (0.0-1.0)
[2022-06-08] MEDS: INSULIN REGULAR, HUMAN 100 UNITS/ML, 3 ML VIAL (humuLIN R) SUBCUT PRN (11:56)
[2022-06-08 12:00] VITALS: BP_SYST 159
[2022-06-08] MEDS: MICAFUNGIN SODIUM 100 MG in NS 100 ML IV SCH (12:01)
--- NOTE | 2022-06-08 14:00 | NUR ---
ROUNDING DR. DIAS AT BEDSIDE ASSESSING PT. RECEIVED NEW ORDER TO STOP IVF AND DECREASE THE TPN RATE TO 50. NOTIFIED PHARMACY WELL.
--- NOTE | 2022-06-08 15:30 | NUR ---
DR DALY DE JESUS AT BEDSIDE ASSESSING PT. MAKE DR THAT PT WAS NOT EATING GOOD.
[2022-06-08 16:00] VITALS: BP_SYST 151
--- NOTE | 2022-06-08 16:45 | NUR ---
CONSULTATION PAGED/CALLED Reason for Consultation: POOR INTAKE, NEEDS GT PLACEMENT Person Who was Notified: NIDA Consulting Physician: MEREDITH SPANGLER Ordering Physician: JAKI DE JESUS
--- NOTE | 2022-06-08 19:25 | NUR ---
CLOSING NOTE PT IN BED, RESPIRATION EVEN AND NON-LABORED. STILL LOOKS LETHARGIC. PT IS ABLE TO MAKE HER NEEDS KNOWN. MET HER NEEDS. IV RUNNING ORDERED WITH NO S/S OF INFILTRATION AT THE SITE. BED IS LOCKED AT LOW POSITION. SAFETY PRECAUTION IN PLACED. ENDORSED CARE TO ON COMING SHIFT NURSE.
[2022-06-08 19:30] VITALS: BP_SYST 167
--- NOTE | 2022-06-08 19:30 | NUR ---
PM ASSESSMENT; -Pt is lethargic, laying in bed. No s/s any acute distress noted. MARGARET midline in place with 2 ports patent drsg cdi. TPN @ 50ml/hr. Generalized weakness noted. Unable to discuss POC d/t cognitive limitation and no family is available. Bed alarmed, side rails x3, call light w/in reach. Contact isolation for sputum. Maintains contact isolation entire time. Cont to monitor pt.
[2022-06-08] MEDS ORDERED: SODIUM ACETATE IV SCH ×10 (21:00)
[2022-06-08] MEDS ORDERED: SODIUM CHLORIDE IV SCH ×10 (21:00)
[2022-06-08] MEDS ORDERED: [UNRECOGNIZED DRUG - OTHER] IV SCH ×10 (21:00)
[2022-06-08] MEDS ORDERED: TPN PERIPHERAL IV SCH ×10 (21:00)
[2022-06-08] MEDS: DOXEPINE (SINEQUAN) 25 MG CAP PO SCH (21:15)
--- NOTE | 2022-06-08 21:18 | NUR ---
NOTES; -Pt is still lethargic, was able to take all routine po meds. Maintains contact isolation. Bed alarmed, side rails x3, call light w/in reach. Cont to monitor pt.
--- NOTE | 2022-06-08 23:27 | NUR ---
NOTES; CODE STROKE -ALL CODE STROKE TEAM ARRIVED AT BEDSIDE TO ASSESS PT.
--- NOTE | 2022-06-08 23:27 | NUR ---
NOTES; -Pt is lethargic, slurred speech and left facial drooping noted. Pt is a/ox 2-3. low BP=93/70, 94, 96.3, 18,f7rmy=02% r/a. Pt is sweating but afebrile noted. Pt was able to follow simple commands. Pt was weak hand park naturalist and moderate strength of rajwinder LE and SR with elevated T wave, will notify .
--- NOTE | 2022-06-08 23:33 | NUR ---
NOTES; PAGED DR. SWANNIUM NOW WATING FOR MD TO RETURN CALLBACK
--- NOTE | 2022-06-08 23:38 | NUR ---
NOTES; Notified MD -Notified Dr. Barker regarding pt is lethargic, low bp 99/56,93, 18,96.3, d9wle=03%, SR=045, a monitor shows SR with T-elevation, and left facial drooping. Dr. Barker stated," she has neurologic problem and her face is like that." CT head w/o contrast stat per md.
--- NOTE | 2022-06-08 23:40 | NUR ---
NOTES; -PT LEFT ROOM FOR CT HEAD PROCEDURE WITH STABLE CONDITION.
--- NOTE | 2022-06-08 23:50 | NUR ---
NOTES; -PT RETURNED FROM CT PROCEDURE TO BED. PT'S CONDITION STABLE. CONT TO MONITOR PT.
[2022-06-09] VITALS (7 sets, daily range): BP systolic 94–166
--- NOTE | 2022-06-09 00:03 | NUR ---
NOTES; SPOKE WITH Francisca WEBBER-NEUROLOGIST REGARDING CODE STROKE -Spoke with Francisca Webber on a cellphone regarding pt is lethargic but pt is a/o x2-3 little slow recalling memory, low bp and left side facial drooping and CT head w/o contrast is pending. No thrombolytic noted, continue to monitor elevated bp and suggest MRI in the morning per Dr. Coles.
--- NOTE | 2022-06-09 00:45 | NUR ---
NOTES; SPOKE WITH DR. COLES,A -Spoke with Dr. Coles on a tele neuro (Magdi) machine inside pt's room and informed CT head result and recent VS 96.9,16, 95/57,94,16,g3rsi=80% r/a. pt seem more awakes and alerted. Continue to monitor BP per md.
--- NOTE | 2022-06-09 00:49 | NUR ---
NOTES; COLLECTED URINE FOR U/A
[2022-06-09 01:11] LABS: BILIRUBIN,URINE NEGATIVE (NEGATIVE); BLOOD, URINE NEGATIVE (NEGATIVE); CLARITY/URINE CLEAR (CLEAR); COLOR,URINE YELLOW (YELLOW); GLUCOSE,URINE NEGATIVE (NEGATIVE); KETONES,URINE NEGATIVE (NEGATIVE); LEUKOCYTE ESTERASE ,URINE NEGATIVE (NEGATIVE); NITRITE, URINE NEGATIVE (NEGATIVE); PH,URINE 6.5 (5.0-8.0); PROTEIN URINE 1+ (NEGATIVE)
[2022-06-09] MEDS: VANCOMYCIN HCL 1,000 MG in NS 250 ML IV SCH ×2 (01:21→14:46)
[2022-06-09 01:29] LABS: BACTERIA,URINE None Seen /HPF (None Seen); MUCUS,URINE None Seen /LPF (None Seen); RBC,URINE NONE SEEN /HPF (0-3); WBC,URINE 0-3 /HPF (0-3)
--- NOTE | 2022-06-09 01:56 | NUR ---
NOTES; -Pt is resting in bed. No s/s any acute distress noted. VS 96.5, 18, 116/54, 93,f6cde=16%. All safety measures in place. Bed alarmed, side rails x3, call light w/in reach. Cont to monitor pt.
[2022-06-09 01:57] LABS: BASOPHILS % (AUTO) 0.3 % (0.0-2.0); EOSINOPHILS % (AUTO) 0.1 % (0.0-4.0); HEMATOCRIT 25.4 % (36-48); LYMPHOCYTES # (AUTO) 1.5 K/uL (1.0-5.5); LYMPHOCYTES % (AUTO) 18.5 % (20.5-51.5); MEAN CORPUSCULAR VOLUME 88 fL (79.0-98.0); MONOCYTES # (AUTO) 0.6 K/uL (0.0-1.0); NEUTROPHILS # (AUTO) 5.9 K/uL (1.8-7.7); NEUTROPHILS % (AUTO) 73.1 % (40.0-70.0); PLATELET COUNT (AUTO) 144 K/uL (130-430); RED BLOOD CELL COUNT(AUTO) 2.88 MIL/uL (4.2-6.2); RED CELL DISTRIBUTION WIDTH 15.8 % (9.0-15.0)
[2022-06-09 02:15] LABS: ANION GAP 7 (5-15); CALCIUM 8.2 mg/dL (8.4-11.0); CHLORIDE 100 mmol/L (98-107); CREATININE 0.89 mg/dL (0.55-1.30); GLUCOSE 153 mg/dL (70-99); UREA NITROGEN, BLOOD 44 mg/dL (8-21)
[2022-06-09 02:28] LABS: ALANINE AMINOTRANSFERASE 272 U/L (12-78); ALBUMIN 1.5 g/dL (3.4-4.8); ASPARTATE AMINOTRANSFERASE 90 U/L (10-37); TOTAL BILIRUBIN 0.5 mg/dL (0.0-1.0)
[2022-06-09 02:32] LABS: GFR AFRICAN AMERICAN 81 mL/min (>90)
[2022-06-09 02:49] LABS: PROTHROMBIN TIME 10.1 SECS (9.5-12.5)
--- NOTE | 2022-06-09 03:32 | NUR ---
ROUNDS; -Pt seem more awakes, VSS, 148/77,103, 18,e3efa=62%. NO s/s any acute distress noted. Bed alarmed, side rails x3,call light w/in reach. Cont to monitor pt.
--- NOTE | 2022-06-09 06:26 | NUR ---
NOTES; -Pt passed pre-swallow evaluation. Pt was able to swallow applesauce and drank water w/o any cough or difficulty noted. Cont to monitor pt.
[2022-06-09] MEDS: SUCRALFATE 1 GM TABLET PO SCH ×2 (07:00→16:55)
--- NOTE | 2022-06-09 07:10 | NUR ---
CLOSING NOTES; -Pt seem more awakes and alerted. No s/s any acute distress noted. MARGARET midline in place with 2 ports patent drsg cdi. TPN @ 50ml/hr. Generalized weakness noted. Bed alarmed, side rails x3, call light w/in reach. Contact isolation for sputum. Maintains contact isolation entire time. Will endorse to next nurse to cont care and monitor BP and if abnormal of baseline to notify Dr. Coles.
--- NOTE | 2022-06-09 07:13 | NUR ---
PHYSICAL THERAPY CO-SIGN The Physical Therapy Progress Notes documented by Society Reporter have been reviewed. Reviewed/Co-Signed by: Tj Walton Documentation Done by: NASIM PINEDA PTA Addendum: 06/09/22 at 0713 by Tj Walton PT Amended: Links added.
--- NOTE | 2022-06-09 07:48 | NUR ---
RN opening note report was endorsed by night nurse. patient is awake with eyes open. able to stay " I don't know and answer yes and no questions, but unable to tell me her name or . Patient is unable to follow simple commands. Patient is NPO awaiting swallow eval FLEXO OPERATOR is aware. patient has all safety precautions in place. patient surgical incision is clean and dry no signs of active bleeding. close to nurses station.
[2022-06-09] MEDS: BUDESONIDE 0.5 MG/2 ML AMPUL.NEB INH SCH ×2 (08:00→19:00)
[2022-06-09] MEDS: QUEtiapine FUMARATE 100 MG TABLET PO SCH (09:00)
[2022-06-09] MEDS: DEUTETRABENAZINE PO SCH (09:00)
[2022-06-09] MEDS: amLODIPine BESYLATE 10 MG TABLET PO SCH (09:00)
[2022-06-09] MEDS: DOCUSATE SODIUM 100 MG CAPSULE PO SCH (09:00)
[2022-06-09] MEDS: GABAPENTIN 400 MG CAPSULE PO SCH ×2 (09:00→14:50)
[2022-06-09] MEDS: METOPROLOL TARTRATE 50 MG TABLET PO SCH (09:00)
[2022-06-09] MEDS: LOSARTAN POTASSIUM 50 MG TABLET (COZAAR) PO SCH (09:00)
[2022-06-09] MEDS: predniSONE 10 MG TABLET PO SCH (09:00)
[2022-06-09] MEDS: NICOTINE 21 MG/24 HR PATCH.TD24 TD SCH (09:54)
--- NOTE | 2022-06-09 09:55 | NUR ---
MEDICATION / INCONTINENCE CARE PATIENT IS AWAKE AND ALERT IS ABLE TO ASSIST INCONTINENCE CARE WITH GUNNERY/ORDNANCE OFFICER.NO PO MEDICATION GIVEN DUE TO NPO STATUS WAITING SWALLOW EVAL. ALL SAFETY PRECAUTIONS IN PLACE
[2022-06-09] MEDS: MICAFUNGIN SODIUM 100 MG in NS 100 ML IV SCH (12:17)
--- NOTE | 2022-06-09 12:20 | NUR ---
ACCU CHECK/MEDICATION Addendum: 06/09/22 at 1927 by Joaquina Davey RN accu check done, no coverage given use to not eating. patient is awake and alert sitting up in bed. educated home improvement contractor light, call light is with her but patient is confused. patient shows no signs of any distress. scheduled medication given per order.
--- NOTE | 2022-06-09 14:50 | NUR ---
MEDICATION Addendum: 06/09/22 at 1928 by Joaquina Davey RN scheduled medication given per order. patient is talking more but still confused unable to answer name and but can answer simple questions. no other needs at this time. patient has all safety precaution in place. call light is with her.
--- NOTE | 2022-06-09 17:08 | NUR ---
ST EVALUATION COMPLETED. ST TX NOT INDICATED. RECOMMEND PO DIET OF PUREE/NECTAR THICK LIQUIDS. 1:1 FEEDER AND FULL ASPIRATION PRECAUTIONS.
[2022-06-09] MEDS: INSULIN REGULAR, HUMAN 100 UNITS/ML, 3 ML VIAL (humuLIN R) SUBCUT PRN (17:22)
--- NOTE | 2022-06-09 17:23 | NUR ---
ACCU CHECK DONE DUE TO POOR INTAKE NO COVERAGE WAS GIVEN
--- NOTE | 2022-06-09 19:28 | NUR ---
rn closing note report was endorsed to night nurse. patient appears to be resting with both eyes closed. no signs of any distress. diet changed per swallow eval. patient has no other needs at this time. call light is with her.
--- NOTE | 2022-06-09 19:30 | NUR ---
OPENING NOTE Received report from day nurse. Pt was resting in bed with lights off and said 'Hi" and smiled when she saw me. I have cared for this pt several times. She stated she was in no pain and did not need anything at that moment. Pt was 94% on RA, so initiated 2L of O2 via NC. IV midline is patent running KVO; change in TPN order requiring bag change. Pt is clean and dry and safety precautions initiated.
[2022-06-09] MEDS ORDERED: TPN PERIPHERAL IV SCH ×10 (21:00)
[2022-06-09] MEDS ORDERED: SODIUM ACETATE IV SCH ×10 (21:00)
[2022-06-09] MEDS ORDERED: [UNRECOGNIZED DRUG - OTHER] IV SCH ×10 (21:00)
[2022-06-09] MEDS ORDERED: SODIUM CHLORIDE IV SCH ×10 (21:00)
--- NOTE | 2022-06-09 23:00 | NUR ---
Medication & Patient Care Late medication administration. Crushed all of pt's medicine and mixed with small amount of pudding. Pt able to take one spoonful but refused the other d/t taste. Pt very thirsty and drank 2 cups of water and juice. Pt was wet so she was changed. She was provided a partial bed bath, clean gown, and linen change.
[2022-06-10] VITALS (7 sets, daily range): BP systolic 144–188
[2022-06-10] MEDS: GABAPENTIN 400 MG CAPSULE PO SCH ×5 (00:40→22:00)
[2022-06-10] MEDS: DOCUSATE SODIUM 100 MG CAPSULE PO SCH ×4 (00:40→22:00)
[2022-06-10] MEDS: DOXEPINE (SINEQUAN) 25 MG CAP PO SCH ×3 (00:40→22:00)
[2022-06-10] MEDS: MIRTAZAPINE 15 MG TABLET PO SCH ×3 (00:41→22:00)
[2022-06-10] MEDS: QUEtiapine FUMARATE 100 MG TABLET PO SCH ×4 (00:41→22:00)
[2022-06-10] MEDS: METOPROLOL TARTRATE 50 MG TABLET PO SCH ×4 (00:47→22:00)
[2022-06-10] MEDS: LOSARTAN POTASSIUM 50 MG TABLET (COZAAR) PO SCH ×4 (00:47→22:00)
[2022-06-10] MEDS: DEUTETRABENAZINE PO SCH ×4 (00:49→22:00)
[2022-06-10] MEDS: VANCOMYCIN HCL 1,000 MG in NS 250 ML IV SCH ×2 (01:56→14:50)
[2022-06-10] MEDS: INSULIN REGULAR, HUMAN 100 UNITS/ML, 3 ML VIAL (humuLIN R) SUBCUT PRN (05:56)
[2022-06-10 07:12] LABS: BASOPHILS % (AUTO) 0.5 % (0.0-2.0); EOSINOPHILS % (AUTO) 0.2 % (0.0-4.0); HEMATOCRIT 25.5 % (36-48); LYMPHOCYTES % (AUTO) 18.6 % (20.5-51.5); MEAN CORPUSCULAR VOLUME 88 fL (79.0-98.0); MONOCYTES # (AUTO) 0.5 K/uL (0.0-1.0); MONOCYTES % (AUTO) 8.4 % (1.7-9.3); NEUTROPHILS % (AUTO) 72.3 % (40.0-70.0); PLATELET COUNT (AUTO) 122 K/uL (130-430); RED BLOOD CELL COUNT(AUTO) 2.88 MIL/uL (4.2-6.2); WHITE BLOOD COUNT (AUTO) 5.5 K/uL (4.8-10.8)
[2022-06-10] MEDS: BUDESONIDE 0.5 MG/2 ML AMPUL.NEB INH SCH ×2 (07:32→19:50)
[2022-06-10 07:51] LABS: ALBUMIN 1.7 g/dL (3.4-4.8); CALCIUM 7.6 mg/dL (8.4-11.0); CREATININE 0.79 mg/dL (0.55-1.30); PHOSPHORUS 2.5 mg/dL (2.7-4.5); TOTAL BILIRUBIN 0.4 mg/dL (0.0-1.0)
--- NOTE | 2022-06-10 08:00 | NUR ---
Received patient in bed aao x 2, vital signs within normal limits of patient, patient denies pain, noted on TPN at 75.45 running to left upper arm mid line, noted incision with staple to mid lower abdomen open to air, no redness or drainage noted, patient's meds were given crush added with pudding, patient was able to tolerate. Patient is selective when responding to Nurse, will only talk intermittently with simple word(s). In no acute distress, will continue to monitor. Patient call light was placed to reach with bed to low position. RN will be available as needed.
[2022-06-10] MEDS: NICOTINE 21 MG/24 HR PATCH.TD24 TD SCH (09:08)
[2022-06-10] MEDS: SUCRALFATE 1 GM TABLET PO SCH ×2 (09:09→17:00)
[2022-06-10] MEDS: predniSONE 10 MG TABLET PO SCH (09:09)
[2022-06-10] MEDS: amLODIPine BESYLATE 10 MG TABLET PO SCH (09:19)
[2022-06-10 11:06] LABS: HEPATITIS A AB, IgM Negative (Negative); HEPATITIS B CORE AB, IgM Negative (Negative); HEPATITIS B SURFACE AG Negative (Negative)
--- NOTE | 2022-06-10 12:00 | NUR ---
Patient noted sleeping in bed, in no acute distress, patient comfortable, call light placed to reach.
[2022-06-10] MEDS: MICAFUNGIN SODIUM 100 MG in NS 100 ML IV SCH (12:35)
--- NOTE | 2022-06-10 15:03 | NUR ---
Patient refuse her meds at this time, also offered to feed patient,patient refused. Will continue to offer
--- NOTE | 2022-06-10 15:59 | NUR ---
PT WAS SEEN FOR DYSPHAGIA. PT WAS ABLE TO SAFELY SWALLOW 2-3 BITES OF APPLE SAUCE AND NTL. HOWEVER, PT REFUSED AFTER 2 TRIALS. RECOMMENDATION PUREE DIET WITH NECTAR THICK LIQUID ALTERNATE MODE OF FEEDING IN CONSULTATION WITH PHYSICIAN IF PT CONTINUES TO REFUSE PO INTAKE.
[2022-06-10 17:11] LABS: INR 0.9 (0.8-1.2); PROTHROMBIN TIME 9.7 SECS (9.5-12.5)
[2022-06-10 17:14] LABS: ALBUMIN 1.8 g/dL (3.4-4.8); CALCIUM 8.1 mg/dL (8.4-11.0); CREATININE 0.7 mg/dL (0.55-1.30); TOTAL BILIRUBIN 0.5 mg/dL (0.0-1.0)
--- NOTE | 2022-06-10 17:29 | NUR ---
Called patient's next of kin to get consent over the phone for EGD/Peg placement. Patient's next of kin Trace's phone has a voice message that says "mailbox is full and cannot get message". Will Endorse to coming Nurse to follow up with consent.
--- NOTE | 2022-06-10 17:41 | NUR ---
Recheck patient's BP as of now, Patient bp 178/92, HR 102, Called Jose Watson; to inform of patient high bp. Will await a call back. Patient also asymptomatic at this time, will continue to monitor.
--- NOTE | 2022-06-10 18:25 | NUR ---
Nutrition F/U Admitting Diagnosis: Complete Rectal Prolapse Medical Hx: Per EMR: 66 YOF who transferred from [facility] for evaluation/ treatment of rectal prolapse. Visual NFPE completed d/t patient falling asleep during interview plus seen with blankets covering the bottom half of her body: Moderate - Severe fat loss: orbitals and triceps; Moderate - Severe muscle wasting: temples, clavicles, and shoulders. PMHx: long history of psychological disorder, chronic smoker, COPD, anemia. Sx Hx: tummy tuck, silicone breast implants. hospital course updates: S/p code stroke on 06/08/22. S/p swallow eval 06/10/22: ST recommends puree NTL, however alternative means of nutrition necessary if patient continues to refuse foods. Per Dr Barker on 06/10/22: patient choked on food when he tried to feed her, MD recommends GT placement. Subjective Information: RD reviewed pt's current EMR including diet Hx, physician notes, nursing notes, pertinent labs/meds/procedures, care trends, and care activity. Per EMR review, pt continues w/ respiratory failure, COPD, s/p rectal prolapse Sx, psych illness, fungemia (most likely line sepsis) a/w final cultures report. Per RD chart review, LBM documented 06/10 with no GI symptoms noted. Nursing noting poor PO >2 weeks r/t lack of appetite. Currently pt on puree diet with TPN infusing at 75mL/hr. RD rounded to patient room, ST was performing swallow evaluation. RD witnessed patient refuse to complete eval. RD attempted to speak to patient, however patient was nonverbal at time of visit. RD witnessed tardive dyskinesia (repetitive muscle movements r/t psych disorder). RD s/w Dr Barker after bedside visit. Per patient requires GT placement and MD requested EN recommendations. Ht: 5'8" Wt: 126#/57.3 kg (05/16) IBW: 140#/63.6 kg UBW: 150# (1 year ago) per pt CBW: 127# per bedscale wt taken by RD 06/03 Current Diet Order/Nutrition Support: Pureed diet NTL x 1 day; PPN D20 AA 8.5% @75mL x 24h via peripheral line x 2 days Medications: PPN @ 75mL, remeron, prednisone, IV abx, cozaar, lopressor, SSI, zofran, colace, mylanta Labs: RBC 2.8 (L), Hgb 8.6 (L), Hct 25.5 (L), BG 196 (H), TG 290 (H), Fe 13 (L), Phos 2.5 (L), Ca 7.6 (L), Alb 1.7 (L) Weight Status: Underweight (BMI <21 for 65+) GI symptoms: None, per EMR 06/10 Last BM: x1 documented 06/10 Skin Integrity Comment: Venancio 11: abdominal incision; right arm/buttocks erythema 06/10 Left arm +1 pitting edema noted 06/09 Current % PO 29% x 9 meals - Poor *New Estimated Energy Expenditure (kcals/day) 4258-9973 (25-30 kcal/kg IBW d/t GERIAT, BMI <21, Sx healing) Estimated Protein Required (g/day) 64-96 (1-1.5 g/kg IBW d/t GERIAT, BMI <21, Sx healing) Estimated Fluid Required (l/day) 1.6-1.9 (1mL/kcal for maintenance) Problem/Etiology/Signs/Symptoms *MODIFIED* * Severe unintentional weight loss r/t suspected long-term inadequate oral intake a/e/b patient endorses 24lb and 16% weight loss x 6 months. (Ongoing) * Inadequate oral intake r/t clear liquid diet order a/e/b CLD provides 1531 kcal/day and 50g pro/day. (Resolved) * Swallowing difficulty r/t dysphagia a/e/b ST evaluation, patient choking on foods, diet order (New) Expected Outcomes/Goals -- PO intake provides >85% estimated nutrient needs, slow wt gain w/in 1-2lbs per wk, skin integrity, nutrition-related labs trending WNL, improvements in bowel function, BM q1-3 days Dietitian Recommendations * Continue puree diet NTL, per ST - consider cardiac restriction if pt remains PO * If/when medically appropriate, Jevity1.2 @ 65 mL/hr x 24hr, free water flushes: 150mL Q6h via GT - Provides daily: 1872 kcals, 87g protein, 1859mL (1259 EN only) - Meets: 98% upper est kcals, 135% lower est protein, 98% upper est fluids * Recommend daily MVI, VIT D, and fish oil High Risk F/U 2-3 days
--- NOTE | 2022-06-10 18:27 | NUR ---
PCP called back as of now, ordered Hydralazine 10mg IVP for systolic bp greater than 160.
[2022-06-10] MEDS ORDERED: hydrALAZINE HCL 20 MG/ML VIAL IVP PRN (18:30)
--- NOTE | 2022-06-10 18:30 | NUR ---
Dietitian Recommendations * Continue puree diet NTL, per ST - consider cardiac restriction if pt remains PO * If/when medically appropriate, Jevity1.2 @ 65 mL/hr x 24hr, free water flushes: 150mL Q6h via GT - Provides daily: 1872 kcals, 87g protein, 1859mL (1259 EN only) - Meets: 98% upper est kcals, 135% lower est protein, 98% upper est fluids * Recommend daily MVI, VIT D, and fish oil Please refer to nutrition F/U for details, thanks! CC, MPH, RDN
[2022-06-10] MEDS: SODIUM CHLORIDE IV SCH ×10 (21:43)
[2022-06-10] MEDS: SODIUM ACETATE IV SCH ×10 (21:43)
[2022-06-10] MEDS: TPN PERIPHERAL IV SCH ×10 (21:43)
[2022-06-10] MEDS: [UNRECOGNIZED DRUG - OTHER] IV SCH ×10 (21:43)
--- NOTE | 2022-06-10 22:30 | NUR ---
Multiple attempts made at oral medication administration. Patient refused each time, turning head away and saying "no".
[2022-06-11] VITALS: BP_SYST 151
[2022-06-11] MEDS: INSULIN REGULAR, HUMAN 100 UNITS/ML, 3 ML VIAL (humuLIN R) SUBCUT PRN ×4 (00:50→18:01)
[2022-06-11] MEDS: VANCOMYCIN HCL 1,000 MG in NS 250 ML IV SCH ×2 (02:40→13:18)
[2022-06-11] MEDS: SUCRALFATE 1 GM TABLET PO SCH ×2 (06:27→16:21)
--- NOTE | 2022-06-11 06:50 | NUR ---
Called number on file for son Trace to obtain consent. No answer, voicemail box full. Paged Dr. Farah.
--- NOTE | 2022-06-11 06:55 | NUR ---
Informed Dr. Farah that we have not been able to reach patient's family for consent despite multiple attempts.
[2022-06-11] MEDS: BUDESONIDE 0.5 MG/2 ML AMPUL.NEB INH SCH ×2 (07:00→19:00)
[2022-06-11 07:55] LABS: PHOSPHORUS 2.7 mg/dL (2.7-4.5)
--- NOTE | 2022-06-11 08:00 | NUR ---
received pt in bed alert and orient x 2, vital signs within normal limits, patient does not like to speak, unable to get consent for peg placement, Charge Nurse an Doctor made aware, in no acute distress, call light placed to reach, patient comfortable.
--- NOTE | 2022-06-11 08:01 | NUR ---
Hydralazine PRN given for BP 179/86 Addendum: 06/11/22 at 0809 by Samantha Ash RN Amended to finish shift summary note: Hydralazine PRN given for BP 176/89 at 0256. On recheck, BP 159/86. 2 units regular insulin given this morning for blood sugar 193. TPN infusing as ordered. Patient has been NPO since midnight. Incontinence care provided. Turned and repositioned with pillow support. Patient felt slightly warm to the touch with temp of 99.0 this morning. Blankets removed, temp 97.7 on recheck. Patient follows people in room with eyes and said "no" when attempt was made at giving medication with applesauce, but otherwise patient has not responded to questions with words or with nodding or shaking of head. Call light in reach, bed low and locked. Endorsed to oncoming nurse.
[2022-06-11 08:16] VITALS: BP_SYST 165
--- NOTE | 2022-06-11 08:58 | NUR ---
0700 - ARRIVED ON UNIT PER ASSISTANT COUNSEL, PT CONSENT NON SIGNED. PT AWAKE BUT NONVERBAL.
--- NOTE | 2022-06-11 08:59 | NUR ---
0730 - ACCOMPANIED WITH DR. GARDUNO AND ABDIRIZAK GIBSON. DR. GARDUNO WILL NOT DO EGD/PEG WITHOUT CONSENT, ABDIRIZAK GIBSON INDICATED F/U WITH DR. DE JESUS FOR MEDICAL NEEDS.
[2022-06-11] MEDS: DOCUSATE SODIUM 100 MG CAPSULE PO SCH ×2 (09:00→21:01)
[2022-06-11] MEDS: predniSONE 10 MG TABLET PO SCH (09:00)
[2022-06-11] MEDS: amLODIPine BESYLATE 10 MG TABLET PO SCH (09:00)
[2022-06-11] MEDS: QUEtiapine FUMARATE 100 MG TABLET PO SCH ×2 (09:00→20:59)
[2022-06-11] MEDS: GABAPENTIN 400 MG CAPSULE PO SCH ×3 (09:00→20:59)
[2022-06-11] MEDS: DEUTETRABENAZINE PO SCH ×2 (09:00→21:00)
[2022-06-11] MEDS: METOPROLOL TARTRATE 50 MG TABLET PO SCH ×2 (09:00→21:00)
[2022-06-11] MEDS: LOSARTAN POTASSIUM 50 MG TABLET (COZAAR) PO SCH ×2 (09:00→20:59)
[2022-06-11] MEDS: NICOTINE 21 MG/24 HR PATCH.TD24 TD SCH (09:33)
[2022-06-11 11:08] VITALS: BP_SYST 151
--- NOTE | 2022-06-11 12:00 | NUR ---
Acuu check done, blood sugar 155mg/dl, cover with 2 units of insulin, patient tolerated well, patient asymptomatic.
[2022-06-11] MEDS: MICAFUNGIN SODIUM 100 MG in NS 100 ML IV SCH (12:58)
[2022-06-11 13:53] LABS: CALCIUM 8.4 mg/dL (8.4-11.0); CREATININE 0.74 mg/dL (0.55-1.30); TOTAL BILIRUBIN 0.5 mg/dL (0.0-1.0)
[2022-06-11 16:42] VITALS: BP_SYST 143
--- NOTE | 2022-06-11 17:30 | NUR ---
Accu check done, 153mg/dl, covered with 2 units, patient resting comfortably in bed, in no distress call light placed to reach.
--- NOTE | 2022-06-11 20:09 | NUR ---
Received report from day shift. Patient resting in bed, unlabored breathing, no sign of distress noted. TPN infusing as ordered. Call light in reach, bed low and locked.
[2022-06-11 20:30] VITALS: BP_SYST 167
[2022-06-11] MEDS: ACETAMINOPHEN 650 MG/20.3 ML UDC PO PRN (20:58)
[2022-06-11] MEDS: DOXEPINE (SINEQUAN) 25 MG CAP PO SCH (20:59)
[2022-06-11] MEDS: MIRTAZAPINE 15 MG TABLET PO SCH (20:59)
[2022-06-11] MEDS: SODIUM CHLORIDE IV SCH ×10 (21:09)
[2022-06-11] MEDS: TPN PERIPHERAL IV SCH ×10 (21:09)
[2022-06-11] MEDS: SODIUM ACETATE IV SCH ×10 (21:09)
[2022-06-11] MEDS: [UNRECOGNIZED DRUG - OTHER] IV SCH ×10 (21:09)
[2022-06-12 00:34] VITALS: BP_SYST 111
[2022-06-12] MEDS: INSULIN REGULAR, HUMAN 100 UNITS/ML, 3 ML VIAL (humuLIN R) SUBCUT PRN ×2 (01:05→11:43)
[2022-06-12] MEDS: VANCOMYCIN HCL 1,000 MG in NS 250 ML IV SCH ×2 (01:11→13:17)
--- NOTE | 2022-06-12 01:30 | NUR ---
Notified Dr. Barker that patient had temperature of 100.1 that came down after Tylenol with night meds, and that patient took her oral meds last night after having refused for the past two days. Patient still has poor oral intake and refused any more after about 1/[address] Barker also aware that consent has not been signed for PEG placement since patient's next of kin's voicemail box is full. Dr. Barker was present on floor at beginning of shift and talked to charge nurse about the possibility of the procedure being a medical necessity. Patient has been NPO since midnight.
[2022-06-12] MEDS: SUCRALFATE 1 GM TABLET PO SCH ×2 (06:32→17:00)
[2022-06-12] MEDS: BUDESONIDE 0.5 MG/2 ML AMPUL.NEB INH SCH ×2 (07:00→19:00)
[2022-06-12 07:11] LABS: BASOPHILS % (AUTO) 0.3 % (0.0-2.0); HEMATOCRIT 26.5 % (36-48); LYMPHOCYTES # (AUTO) 0.7 K/uL (1.0-5.5); LYMPHOCYTES % (AUTO) 16.4 % (20.5-51.5); MEAN CORPUSCULAR VOLUME 87 fL (79.0-98.0); MONOCYTES # (AUTO) 0.3 K/uL (0.0-1.0); MONOCYTES % (AUTO) 7.2 % (1.7-9.3); NEUTROPHILS # (AUTO) 3.4 K/uL (1.8-7.7); NEUTROPHILS % (AUTO) 76.1 % (40.0-70.0); PLATELET COUNT (AUTO) 112 K/uL (130-430); RED BLOOD CELL COUNT(AUTO) 3.06 MIL/uL (4.2-6.2); RED CELL DISTRIBUTION WIDTH 16.2 % (9.0-15.0); WHITE BLOOD COUNT (AUTO) 4.5 K/uL (4.8-10.8)
--- NOTE | 2022-06-12 07:11 | NUR ---
PHYSICAL THERAPY CO-SIGN The Physical Therapy Progress Notes documented by Software Engineer Kernel have been reviewed. Reviewed/Co-Signed by: Tj Walton Documentation Done by: NASIM PINEDA PTA Addendum: 06/12/22 at 0712 by Tj Walton PT Amended: Links added.
--- NOTE | 2022-06-12 07:30 | NUR ---
Closing Patient resting in bed. TPN infusing as ordered. Blood sugar checked this morning, no insulin coverage indicated. Midline dressing changed. Turned and repositioned, incontinence care and oral care provided. Cooling measures in place as patient's temperature had been rising. Temperature this morning was 99.0. Patient reacts to pain but otherwise did not respond to questions. Fall, safety, and aspiration precautions in place.
[2022-06-12 08:00] VITALS: BP_SYST 153
[2022-06-12 08:24] LABS: ALBUMIN 1.7 g/dL (3.4-4.8); CALCIUM 7.9 mg/dL (8.4-11.0); CREATININE 0.68 mg/dL (0.55-1.30); PHOSPHORUS 3.2 mg/dL (2.7-4.5); TOTAL BILIRUBIN 0.6 mg/dL (0.0-1.0)
[2022-06-12] MEDS: GABAPENTIN 400 MG CAPSULE PO SCH ×3 (09:20→23:19)
[2022-06-12] MEDS: QUEtiapine FUMARATE 100 MG TABLET PO SCH ×2 (09:20→23:19)
[2022-06-12] MEDS: NICOTINE 21 MG/24 HR PATCH.TD24 TD SCH (09:20)
[2022-06-12] MEDS: DOCUSATE SODIUM 100 MG CAPSULE PO SCH ×2 (09:21→23:22)
[2022-06-12] MEDS: METOPROLOL TARTRATE 50 MG TABLET PO SCH ×2 (09:21→23:20)
[2022-06-12] MEDS: amLODIPine BESYLATE 10 MG TABLET PO SCH (09:21)
[2022-06-12] MEDS: LOSARTAN POTASSIUM 50 MG TABLET (COZAAR) PO SCH ×2 (09:21→23:20)
[2022-06-12] MEDS: DEUTETRABENAZINE PO SCH ×2 (09:22→23:20)
--- NOTE | 2022-06-12 09:26 | NUR ---
CONSULTATION PAGED REASON FOR CONSULTATION weakness WAS CONSULT CALED?y PERSON WHO WAS NOTIFIED:text messaged OSMAN SKAGGS CONSULTING PHYSICIAN:OSMAN SKAGGS TAXONOMIST SPECIALTY:NEURO TAXONOMIST PHONE NUMBER:[phone] REQUESTING PHYSICIAN:JAKI ESTRELLA
[2022-06-12 11:42] VITALS: BP_SYST 120
--- NOTE | 2022-06-12 12:00 | NUR ---
MOTOR VEHICLE LIGHT ASSEMBLER ACSW Camila attempted to meet with patient at bedside. Patient did not engage in contact. ACSW will continue to be available as needed.
[2022-06-12] MEDS: MICAFUNGIN SODIUM 100 MG in NS 100 ML IV SCH (12:05)
[2022-06-12 16:35] VITALS: BP_SYST 124
[2022-06-12 20:00] VITALS: BP_SYST 147
[2022-06-12] MEDS: ACETAMINOPHEN 650 MG/20.3 ML UDC PO PRN (20:05)
--- NOTE | 2022-06-12 20:19 | NUR ---
PAGED DR. DAVID AT THIS TIME FOR ORDERS
[2022-06-12] MEDS: HEPARIN SODIUM,PORCINE 5,000 UNITS/ML VIAL SUBCUT SCH (21:00)
--- NOTE | 2022-06-12 21:00 | NUR ---
SEGUNDO BARKER AT THIS TIME Addendum: 06/12/22 at 2105 by Jeramie Alcantara RN Dr. Barker called back at this time
--- NOTE | 2022-06-12 21:08 | NUR ---
Notified Dr. Barker that patient had temp of 104.4 and that 325mg PO Tylenol was given. Received order to change PO dose of Tylenol to 650mg, and to add temp>100 to the PRN reason for the existing Tylenol 650mg suppository. Dr. Barker also stated to give one dose of the 650mg Tylenol suppository now. Also notified Dr. Barker that patient's left arm with the midline is more edematous than the right. Received order for venous doppler in the morning and to continue the TPN. Dr. Barker also stated to contact the infectious disease physician.
--- NOTE | 2022-06-12 21:12 | NUR ---
SEGUNDO DAVID AGAIN Addendum: 06/12/22 at 2112 by Jeramie Alcantara RN CALLS BACK AT THIS TIME
[2022-06-12] MEDS ORDERED: ACETAMINOPHEN 650 MG/20.3 ML UDC PO PRN (21:15)
--- NOTE | 2022-06-12 21:15 | NUR ---
Spoke with Dr. Perkins about patient's temperature 104.4, edematous arm with midline, and that Dr. Barker was notified. Received order for blood cultures x2, lactic acid, and procalcitonin STAT. Fungal cultures were also ordered by Dr. Perkins earlier today.
[2022-06-12] MEDS ORDERED: ACETAMINOPHEN 650 MG SUPP.RECT RC ONE (21:30)
[2022-06-12] MEDS: [UNRECOGNIZED DRUG - OTHER] IV SCH ×11 (22:00)
[2022-06-12] MEDS: SODIUM CHLORIDE IV SCH ×11 (22:00)
[2022-06-12] MEDS: SODIUM ACETATE IV SCH ×11 (22:00)
[2022-06-12] MEDS: TPN PERIPHERAL IV SCH ×11 (22:00)
[2022-06-12] MEDS: MIRTAZAPINE 15 MG TABLET PO SCH (23:19)
[2022-06-12] MEDS: DOXEPINE (SINEQUAN) 25 MG CAP PO SCH (23:19)
--- NOTE | 2022-06-13 00:15 | NUR ---
Temperature came down to 97.7 after Tylenol administration and cooling measures. Patient is now more alert and responds to simple questions. AOx1 (self only). Patient requested something to eat and was given 2.5 cups of applesauce. NPO after midnight. Left arm is still edematous.
[2022-06-13 00:23] VITALS: BP_SYST 122
--- NOTE | 2022-06-13 01:00 | NUR ---
New TPN bag not available in either med room.
[2022-06-13] MEDS: VANCOMYCIN HCL 1,000 MG in NS 250 ML IV SCH ×2 (01:47→15:47)
--- NOTE | 2022-06-13 03:30 | NUR ---
20G PIV started to left arm but infiltrated. MRSA swab, COVID swab, and occult blood stool sample collected and sent to lab. Patient remains afebrile.
--- NOTE | 2022-06-13 06:20 | NUR ---
TPN bag was found in ICU with assistance from pharmacy staff. New 22G PIV was placed in right hand. Patient's blood sugar 99 this morning.
[2022-06-13] MEDS: SUCRALFATE 1 GM TABLET PO SCH ×2 (06:52→17:49)
[2022-06-13] MEDS: TPN PERIPHERAL IV SCH ×11 (06:54)
[2022-06-13] MEDS: SODIUM CHLORIDE IV SCH ×11 (06:54)
[2022-06-13] MEDS: [UNRECOGNIZED DRUG - OTHER] IV SCH ×11 (06:54)
[2022-06-13] MEDS: SODIUM ACETATE IV SCH ×11 (06:54)
[2022-06-13] MEDS: BUDESONIDE 0.5 MG/2 ML AMPUL.NEB INH SCH ×2 (07:00→19:00)
[2022-06-13 07:22] LABS: BASOPHILS % (AUTO) 0.8 % (0.0-2.0); HEMATOCRIT 22.2 % (36-48); LYMPHOCYTES # (AUTO) 0.9 K/uL (1.0-5.5); LYMPHOCYTES % (AUTO) 30.5 % (20.5-51.5); MEAN CORPUSCULAR VOLUME 90 fL (79.0-98.0); MONOCYTES # (AUTO) 0.3 K/uL (0.0-1.0); MONOCYTES % (AUTO) 8.6 % (1.7-9.3); NEUTROPHILS # (AUTO) 1.8 K/uL (1.8-7.7); NEUTROPHILS % (AUTO) 60.1 % (40.0-70.0); PLATELET COUNT (AUTO) 108 K/uL (130-430); RED BLOOD CELL COUNT(AUTO) 2.47 MIL/uL (4.2-6.2); RED CELL DISTRIBUTION WIDTH 15.9 % (9.0-15.0)
--- NOTE | 2022-06-13 07:30 | NUR ---
Closing Patient resting in bed, unlabored breathing on 2L NC. Afebrile. PPN infusing. NPO since midnight. Patient's responsiveness to questions varied throughout night. She has been nonverbal this morning and did not respond when introduced to oncoming nurse at shift change. Oral care and CHG bath provided. Turned and repositioned, incontinence care provided. Call light in reach, bed low and locked.
[2022-06-13 07:36] LABS: INR 0.9 (0.8-1.2); PROTHROMBIN TIME 9.7 SECS (9.5-12.5)
[2022-06-13 07:57] LABS: ALBUMIN 1.5 g/dL (3.4-4.8); CALCIUM 8.2 mg/dL (8.4-11.0); CREATININE 0.81 mg/dL (0.55-1.30); PHOSPHORUS 3.7 mg/dL (2.7-4.5); TOTAL BILIRUBIN 0.3 mg/dL (0.0-1.0)
[2022-06-13 08:00] VITALS: BP_SYST 105
--- NOTE | 2022-06-13 08:45 | NUR ---
PATIENT LEFT FOR GI LAB Patient left in stable condition for GI lab
[2022-06-13] MEDS ORDERED: MIDAZOLAM HCL 5 MG/5 ML VIAL ONE (08:59)
[2022-06-13] MEDS ORDERED: MEPERIDINE 100 MG INJ. 100 MG/ML VIAL ONE (08:59)
[2022-06-13] MEDS: GABAPENTIN 400 MG CAPSULE PO SCH ×3 (09:00→22:28)
[2022-06-13] MEDS: LOSARTAN POTASSIUM 50 MG TABLET (COZAAR) PO SCH ×2 (09:00→22:27)
[2022-06-13] MEDS: HEPARIN SODIUM,PORCINE 5,000 UNITS/ML VIAL SUBCUT SCH ×2 (09:00→21:00)
[2022-06-13] MEDS: QUEtiapine FUMARATE 100 MG TABLET PO SCH ×2 (09:00→22:28)
[2022-06-13] MEDS: DEUTETRABENAZINE PO SCH ×2 (09:00→22:29)
[2022-06-13] MEDS: DOCUSATE SODIUM 100 MG CAPSULE PO SCH ×2 (09:00→22:28)
[2022-06-13] MEDS: METOPROLOL TARTRATE 50 MG TABLET PO SCH ×2 (09:00→22:27)
[2022-06-13] MEDS: amLODIPine BESYLATE 10 MG TABLET PO SCH (09:00)
--- NOTE | 2022-06-13 11:00 | NUR ---
PATIENT RETURNED FROM GI LAB Patient returned to room, in bed resting with eyes closed, no sign of distress. Abdominal binder in place.
[2022-06-13 12:00] VITALS: BP_SYST 136
[2022-06-13] MEDS: ACETAMINOPHEN 650 MG/20.3 ML UDC PO PRN (12:12)
[2022-06-13] MEDS: NICOTINE 21 MG/24 HR PATCH.TD24 TD SCH (12:15)
[2022-06-13] MEDS: MICAFUNGIN SODIUM 100 MG in NS 100 ML IV SCH (13:20)
[2022-06-13] MEDS: IBUPROFEN 800 MG TABLET PO PRN (15:20)
--- NOTE | 2022-06-13 15:37 | NUR ---
PAIN Patient complaining of severe pain in her abdomen and rectum. Notified Dr Barker, received new order.
[2022-06-13] MEDS: HYDROmorphone 1 MG/ML INJ. CARTRIDGE IVP PRN (15:46)
[2022-06-13 16:55] VITALS: BP_SYST 105
--- NOTE | 2022-06-13 19:56 | NUR ---
CLOSING NOTE Patient in bed resting with eyes closed, no sign of distress or pain at this time. Breathing is nonlabored and even, 2L nasal cannula in place, oxygenation 97%. Abdominal binder in place. All needs met at this time and safety checks made. Endorsed to overnight babysitter nurse.
[2022-06-13 20:30] VITALS: BP_SYST 107
[2022-06-13] MEDS ORDERED: SODIUM ACETATE IV SCH ×11 (21:00)
[2022-06-13] MEDS ORDERED: [UNRECOGNIZED DRUG - OTHER] IV SCH ×11 (21:00)
[2022-06-13] MEDS ORDERED: SODIUM CHLORIDE IV SCH ×11 (21:00)
[2022-06-13] MEDS ORDERED: TPN PERIPHERAL IV SCH ×11 (21:00)
[2022-06-13] MEDS: CEFEPIME 2 GM in NS 100 ML IV SCH (22:24)
[2022-06-13] MEDS: DOXEPINE (SINEQUAN) 25 MG CAP PO SCH (22:28)
[2022-06-13] MEDS: MIRTAZAPINE 15 MG TABLET PO SCH (22:28)
[2022-06-14 00:35] VITALS: BP_SYST 94
[2022-06-14] MEDS: VANCOMYCIN HCL 1,000 MG in NS 250 ML IV SCH ×2 (02:09→15:26)
--- NOTE | 2022-06-14 02:20 | NUR ---
ROUNDS Patient sleeping in bed, unlabored breathing on 2L NC. Abdominal binder on. G tube in place and flushing well. TPN (peripheral) and Vancomycin infusing per order. Midline was removed earlier, tip of catheter intact. Call light in reach, exit alarm on.
[2022-06-14] MEDS: IBUPROFEN 800 MG TABLET PO PRN ×4 (05:30→15:27)
[2022-06-14] MEDS: SUCRALFATE 1 GM TABLET PO SCH ×2 (06:24→18:14)
[2022-06-14] MEDS: BUDESONIDE 0.5 MG/2 ML AMPUL.NEB INH SCH ×2 (07:00→19:51)
--- NOTE | 2022-06-14 07:30 | NUR ---
Patient resting in bed, unlabored breathing on 2L NC. Refused labs this morning. Right hand IV infiltrated and was removed. Attempts by multiple nurses to start new IV were unsuccessful. IV to left forearm remains patent running PPN. Patient requested applesauce and juice. Patient had two cups of applesauce with some assistance. G tube flushing well, abdominal binder in place. Call light in reach, exit alarm on.
--- NOTE | 2022-06-14 07:30 | NUR ---
OPENING NOTES: PATIENT IS RESTING IN BED QUIETLY. AAOX3 TO PERSON, PLACE, AND EVENT WITH EPISODE OF FORGETFULNESS AND CONFUSION. ABLE TO MAKE NEEDS KNOWN. TURN SELF IN BED. EXPLAINED POC AND PATIENT VERBALIZED UNDERSTANDING BUT NEED EDUCATIONAL REINFORCEMENT. BED IN LOW AND LOCK POSITION. BED ALARM ON. CALL LIGHT AND BEDSIDE TABLE WITHIN REACH. STABLE CONDITION AT THIS TIME.
--- NOTE | 2022-06-14 07:49 | NUR ---
Attendng Md dr Barker was called re: to continue or discontinue TPN. Pt is on GT feeding.
--- NOTE | 2022-06-14 07:54 | NUR ---
PHYSICAL THERAPY CO-SIGN The Physical Therapy Progress Notes documented by Supervisor Wool Shearing have been reviewed. Reviewed/Co-Signed by: Tj Walton Documentation Done by: NASIM PINEDA PTA Addendum: 06/14/22 at 0754 by Tj Walton PT Amended: Links added.
--- NOTE | 2022-06-14 07:55 | NUR ---
CEM LOGAN AT THE BEDSIDE: DR. ANÍBAL PRIEST AT THE BEDSIDE. OK TO CONT PUREE DIET WITH ENSURE W/ MEALS AND D/C PPN.
[2022-06-14 08:00] VITALS: BP_SYST 123
--- NOTE | 2022-06-14 08:00 | NUR ---
FEEDING STARTED: CHECKED FOR RESIDUAL. 0CC RESIDUAL AT THIS TIME. GT FEEDING STARTED JEVITY 1.2 AT 20CCHR, WILL INCREASED 10CC Q6HR TOLERATED. GOAL RATE IS 60CC/HR. HOB 30<. STABLE CONDITION AT THIS TIME. WILL CONT TO MONITOR.. Addendum: 06/14/22 at 1846 by Manisha Dockery RN RN FLUSHED WELL WITH 100CC OF FREE WATER.
[2022-06-14] MEDS: QUEtiapine FUMARATE 100 MG TABLET PO SCH ×2 (08:14→21:01)
[2022-06-14] MEDS: NICOTINE 21 MG/24 HR PATCH.TD24 TD SCH (08:14)
[2022-06-14] MEDS: GABAPENTIN 400 MG CAPSULE PO SCH ×3 (08:15→21:00)
[2022-06-14] MEDS: DOCUSATE SODIUM 100 MG CAPSULE PO SCH ×2 (08:15→21:02)
[2022-06-14] MEDS: amLODIPine BESYLATE 10 MG TABLET PO SCH (08:17)
[2022-06-14] MEDS: LOSARTAN POTASSIUM 50 MG TABLET (COZAAR) PO SCH ×2 (08:17→20:45)
[2022-06-14 08:24] LABS: HEMATOCRIT 22.1 % (36-48); HEMOGLOBIN 7.2 g/dL (12.0-16.0); LYMPHOCYTES # (AUTO) 1.1 K/uL (1.0-5.5); LYMPHOCYTES % (AUTO) 37.9 % (20.5-51.5); MEAN CORPUSCULAR HEMOGLOBIN 29 pg (27-31); MEAN CORPUSCULAR HGB CONC 33 % (32-36); MEAN CORPUSCULAR VOLUME 89 fL (79.0-98.0); MONOCYTES # (AUTO) 0.3 K/uL (0.0-1.0); MONOCYTES % (AUTO) 10.6 % (1.7-9.3); NEUTROPHILS # (AUTO) 1.5 K/uL (1.8-7.7); NEUTROPHILS % (AUTO) 49.5 % (40.0-70.0); PLATELET COUNT (AUTO) 104 K/uL (130-430); RED BLOOD CELL COUNT(AUTO) 2.47 MIL/uL (4.2-6.2); RED CELL DISTRIBUTION WIDTH 15.9 % (9.0-15.0)
[2022-06-14] MEDS: DEUTETRABENAZINE PO SCH ×2 (09:00→21:02)
[2022-06-14] MEDS: HEPARIN SODIUM,PORCINE 5,000 UNITS/ML VIAL SUBCUT SCH ×2 (09:00→21:03)
[2022-06-14] MEDS: METOPROLOL TARTRATE 50 MG TABLET PO SCH ×2 (09:00→20:46)
[2022-06-14 09:39] LABS: ALBUMIN 1.4 g/dL (3.4-4.8); CALCIUM 7.9 mg/dL (8.4-11.0); CREATININE 0.7 mg/dL (0.55-1.30); PHOSPHORUS 3.5 mg/dL (2.7-4.5); TOTAL BILIRUBIN 0.2 mg/dL (0.0-1.0)
[2022-06-14 11:06] LABS: ANTI NUCLEAR AB WITH REFLEX Negative (Negative)
[2022-06-14] MEDS: CEFEPIME 2 GM in NS 100 ML IV SCH ×2 (11:54→21:01)
[2022-06-14 12:29] VITALS: BP_SYST 93
--- NOTE | 2022-06-14 12:30 | NUR ---
HELD METOPROLOL: BP LOW 93/60. HELD METOPROLOL. ASYMPTOMATIC AT THIS TIME. WILL MONITOR BP.
[2022-06-14] MEDS: MICAFUNGIN SODIUM 100 MG in NS 100 ML IV SCH (13:45)
--- NOTE | 2022-06-14 14:00 | NUR ---
FEEDING RATE INCREASE: CHECKED FOR RESIDUAL. 0CC RESIDUAL AT THIS TIME. GT FEEDING RATE INCREASED TO 30CCHR, WILL INCREASED 10CC Q6HR TOLERATED. GOAL RATE IS 60CC/HR. HOB 30<. FLUSHED WELL WITH 100CC OF FREE WATER. STABLE CONDITION AT THIS TIME.
[2022-06-14 14:37] VITALS: BP_SYST 90
[2022-06-14 17:04] VITALS: BP_SYST 129
[2022-06-14 17:06] VITALS: BP_SYST 105
--- NOTE | 2022-06-14 18:51 | NUR ---
CLOSING NOTES: PATIENT IS RESTING IN BED QUIETLY. NO ADDITIONAL DISTRESS NOTED. ALL NEEDS MET. STABLE CONDITION.
--- NOTE | 2022-06-14 19:18 | NUR ---
MRSA IN THE NARES: DR DE JESUS AT THE BEDSIDE AND GAVE NEW ORDER FOR POSITIVE MRSA IN THE NARES-BACTROBAN TOPICAL OINTMENT.
--- NOTE | 2022-06-14 19:20 | NUR ---
OPENING NOTE REPORT RECEIVED FROM DAYSNCFT NURSE. PATIENT RECEIVED LYING IN BED, RESTING. NO S/S OF ACUTE DISTRESS NOTED. BREATHING EVEN AND UNLABORED. HOB RAISED, NASAL CANULA ATTACHED PROPERLY. ON 2L OF OXYGEN. IV SITE IS PATENT, NO SIGNS OF INFILTRATION OR INFECTION NOTED. TUBE FEEDING INFUSING WELL. SKIN WARM AND DRY TO TOUCH. CALL LIGHT WITH PATIENT. BED ALARM ON. BED IS LOCKED AND AT LOWEST POSITION. WILL CONTINUE TO MONITOR.
[2022-06-14] MEDS: HYDROmorphone 1 MG/ML INJ. CARTRIDGE IVP PRN (19:36)
[2022-06-14] MEDS: DOXEPINE (SINEQUAN) 25 MG CAP PO SCH (21:00)
[2022-06-14] MEDS: MIRTAZAPINE 15 MG TABLET PO SCH (21:01)
[2022-06-14] MEDS: MUPIROCIN 2% TOPICAL OINTMENT 22 GM NS SCH (21:01)
--- NOTE | 2022-06-14 23:00 | NUR ---
ROUNDS PATIENT IN BED, RESTING. NO SIGNS OF DISCOMFORT NOTED. CHEST RISE AND FALL EVEN BILATERALLY. WILL MONITOR.
[2022-06-14] MEDS: INSULIN REGULAR, HUMAN 100 UNITS/ML, 3 ML VIAL (humuLIN R) SUBCUT PRN (23:24)
[2022-06-15 01:35] VITALS: BP_SYST 106
[2022-06-15] MEDS: VANCOMYCIN HCL 1,000 MG in NS 250 ML IV SCH ×2 (01:45→14:04)
--- NOTE | 2022-06-15 03:00 | NUR ---
ROUNDS PATIENT IN BED RESTING. NO SIGNS OF DISCOMFORT NOTED. CHEST RISE AND FALL EVEN BILATERALLY. ALL NEEDS MET. WILL CONTINUE TO MONITOR.
[2022-06-15] MEDS: HYDROmorphone 1 MG/ML INJ. CARTRIDGE IVP PRN (05:46)
[2022-06-15] MEDS: SUCRALFATE 1 GM TABLET PO SCH ×2 (06:32→16:13)
--- NOTE | 2022-06-15 06:48 | NUR ---
CLOSING NOTE PATIENT IN BED, RESTING. NO S/S OF ACUTE DISTRESS. BREATHING EVEN AND UNLABORED. HOB RAISED. IV SITE PATENT, NO SIGNS OF INFILTRATION OR INFECTION NOTED. TUBE FEEDING INFUSING WELL. ALL NEEDS MET THROUGHOUT SHIFT. FALL, SAFETY PRECAUTIONS MAINTAINED THROUGHOUT SHIFT. WILL CONTINUE TO MONITOR UNTIL PATIENT CARE IS ENDORSED TO ONCOMING DAYSHIFT NURSE.
[2022-06-15] MEDS: BUDESONIDE 0.5 MG/2 ML AMPUL.NEB INH SCH ×2 (07:00→19:00)
[2022-06-15 07:57] LABS: BASOPHILS % (AUTO) 0.9 % (0.0-2.0); EOSINOPHILS % (AUTO) 0.9 % (0.0-4.0); HEMOGLOBIN 7.3 g/dL (12.0-16.0); LYMPHOCYTES # (AUTO) 0.8 K/uL (1.0-5.5); LYMPHOCYTES % (AUTO) 28.7 % (20.5-51.5); MEAN CORPUSCULAR HEMOGLOBIN 29 pg (27-31); MEAN CORPUSCULAR HGB CONC 33 % (32-36); MEAN CORPUSCULAR VOLUME 87 fL (79.0-98.0); MONOCYTES # (AUTO) 0.2 K/uL (0.0-1.0); MONOCYTES % (AUTO) 6.9 % (1.7-9.3); NEUTROPHILS # (AUTO) 1.6 K/uL (1.8-7.7); NEUTROPHILS % (AUTO) 62.6 % (40.0-70.0); PLATELET COUNT (AUTO) 134 K/uL (130-430); RED BLOOD CELL COUNT(AUTO) 2.54 MIL/uL (4.2-6.2); WHITE BLOOD COUNT (AUTO) 2.6 K/uL (4.8-10.8)
[2022-06-15 08:32] VITALS: BP_SYST 130
[2022-06-15] MEDS: QUEtiapine FUMARATE 100 MG TABLET PO SCH ×2 (08:40→20:47)
[2022-06-15] MEDS: DOCUSATE SODIUM 100 MG CAPSULE PO SCH ×3 (08:40→20:48)
[2022-06-15] MEDS: amLODIPine BESYLATE 10 MG TABLET PO SCH (08:41)
[2022-06-15] MEDS: CEFEPIME 2 GM in NS 100 ML IV SCH ×2 (08:41→20:51)
[2022-06-15] MEDS: LOSARTAN POTASSIUM 50 MG TABLET (COZAAR) PO SCH ×2 (08:42→20:49)
[2022-06-15] MEDS: GABAPENTIN 400 MG CAPSULE PO SCH ×3 (08:42→20:48)
[2022-06-15] MEDS: METOPROLOL TARTRATE 50 MG TABLET PO SCH ×2 (08:42→20:50)
[2022-06-15] MEDS: HEPARIN SODIUM,PORCINE 5,000 UNITS/ML VIAL SUBCUT SCH ×2 (08:44→20:52)
[2022-06-15] MEDS: DEUTETRABENAZINE PO SCH ×2 (08:45→20:50)
[2022-06-15] MEDS: NICOTINE 21 MG/24 HR PATCH.TD24 TD SCH (08:45)
[2022-06-15] MEDS: MUPIROCIN 2% TOPICAL OINTMENT 22 GM NS SCH ×2 (08:46→20:52)
[2022-06-15 11:48] VITALS: BP_SYST 135
--- NOTE | 2022-06-15 12:45 | NUR ---
Discharge Planning: DCP faxed pt [facility] to [facility] [phone], [facility] [phone], [facility] [phone], [facility] [phone], [facility] [phone] DCP to follow up Addendum: 06/15/22 at 1627 by Cielo Harmtan DP [facility] [phone]-no [facility] beds, [facility] [phone]-No [facility] beds, [facility] [phone] [facility] beds and not contracted with insurance. DCP to follow up with [facility] [phone], [facility] [phone].
[2022-06-15 15:46] VITALS: BP_SYST 127
[2022-06-15] MEDS: traMADol HCL HCL 50 MG TABLET (ULTRAM) PO PRN (16:13)
[2022-06-15] MEDS: MICAFUNGIN SODIUM 100 MG in NS 100 ML IV SCH (16:13)
--- NOTE | 2022-06-15 16:24 | NUR ---
ST EVALUATION COMPLETED. ST TX NOT INDICATED. RECOMMEND PO DIET OF PUREE/THIN LIQUID FOR ORAL GRATIFICATION. 1:1 FEEDER AND FULL ASPIRATION PRECAUTIONS.
--- NOTE | 2022-06-15 16:57 | NUR ---
pt family educated over phone about pt o2 saturation and range to keep o2 between 88-92%. pt family to bring portable o2 so pt can go home. pt currently on 3L nc. Addendum: 06/15/22 at 1700 by Tigre Wilson RN wrong pt.
[2022-06-15] MEDS ORDERED: traMADol HCL HCL 50 MG TABLET (ULTRAM) PO SCH (18:00)
--- NOTE | 2022-06-15 19:15 | NUR ---
OPENING NOTE REPORT RECEIVED FROM DAYSHIFT NURSE. PATIENT RECEIVED LYING IN BED, AWAKE, LETHARGIC. NO S/S OF ACUTE DISTRESS. BREATHING EVEN AND UNLABORED, HOB RAISED, NASAL CANULA ATTACHED PROPERLY, ON 2L OF OXYGEN. IV SITE PATENT, NO SIGNS OF INFILTRATION OR INFECTION NOTED. SKIN WARM AND DRY TO TOUCH, NO S/S OF HYPOGLYCEMIA NOTED. CALL LIGHT WITH PATIENT. BED ALARM ON. BED IS LOCKED AND AT LOWEST POSITION. WILL CONTINUE TO MONITOR.
[2022-06-15] MEDS: MIRTAZAPINE 15 MG TABLET PO SCH (20:48)
[2022-06-15] MEDS: DOXEPINE (SINEQUAN) 25 MG CAP PO SCH (20:51)
[2022-06-15] MEDS ORDERED: dilTIAZem HCL IVP 5 MG/ML VIAL IVP ONE (21:15)
--- NOTE | 2022-06-15 21:16 | NUR ---
TACHYCARDIA/HIGH ALERT NOTE HEART RATE SUSTAINING AT 180'S. DR. DE JESUS IN THE NURSING STATION, MADE AWARE, ORDERS GIVEN FOR CARDIZEM. WILL CARRY OUT ORDERS.
--- NOTE | 2022-06-15 22:30 | NUR ---
REASSESSMENT PATIENT'S HEART RATE SUSTAINING AT 80'S AT THIS TIME. NO S/S OF ACUTE DISTRESS. PATIENT DENIES CHEST PAIN OR SOB. WILL CONTINUE TO MONITOR.
--- NOTE | 2022-06-15 23:00 | NUR ---
ROUNDS PATIENT IN BED, RESTING. NO SIGNS OF DISCOMFORT. CHEST RISE AND FALL EVEN BILATERALLY. ALL NEEDS MET. WILL CONTINUE TO MONITOR.
[2022-06-16] MEDS: INSULIN REGULAR, HUMAN 100 UNITS/ML, 3 ML VIAL (humuLIN R) SUBCUT PRN ×2 (00:10→17:21)
[2022-06-16 01:10] VITALS: BP_SYST 110
[2022-06-16] MEDS: VANCOMYCIN HCL 1,000 MG in NS 250 ML IV SCH ×2 (01:40→17:06)
--- NOTE | 2022-06-16 02:00 | NUR ---
LAYING FLAT/EDUCATION/STOP FEEDING PATIENT FOUND LAYING FLAT AT THIS TIME. ATTEMPTED TO RAISE HOB, PATIENT REFUSED. EDUCATED ON PURPOSE OF HAVING HOB, DUE TO TUBE FEEDING, PATIENT STILL REFUSED. TUBE FEEDING STOPPED AT THIS TIME. CHARGE NURSE MADE AWARE.
[2022-06-16] MEDS: traMADol HCL HCL 50 MG TABLET (ULTRAM) PO PRN ×4 (05:25→23:54)
--- NOTE | 2022-06-16 06:07 | NUR ---
CLOSING NOTE PATIENT IN BED, RESTING AT THIS TIME. NO S/S OF ACUTE DISTRESS. BREATHING IS EVEN AND UNLABORED. PATIENT STILL REFUSES TO RAISE HOB. TUBE FEEDING STOPPED AT THIS TIME. IV SITE PATENT, NO SIGNS OF INFILTRATION OR INFECTION NOTED. ALL NEEDS MET THROUGHOUT SHIFT. FALL, SAFETY PRECAUTIONS MAINTAINED THROUGHOUT SHIFT. WILL CONTINUE TO MONITOR UNTIL PATIENT CARE IS ENDORSED TO ONCOMING DAYSHIFT NURSE.
[2022-06-16] MEDS: SUCRALFATE 1 GM TABLET PO SCH ×2 (06:32→17:04)
[2022-06-16 06:58] LABS: BASOPHILS % (AUTO) 0.8 % (0.0-2.0); EOSINOPHILS % (AUTO) 1.3 % (0.0-4.0); HEMOGLOBIN 7.3 g/dL (12.0-16.0); LYMPHOCYTES # (AUTO) 1.2 K/uL (1.0-5.5); LYMPHOCYTES % (AUTO) 47.1 % (20.5-51.5); MEAN CORPUSCULAR HEMOGLOBIN 29 pg (27-31); MEAN CORPUSCULAR HGB CONC 33 % (32-36); MEAN CORPUSCULAR VOLUME 87 fL (79.0-98.0); MONOCYTES # (AUTO) 0.3 K/uL (0.0-1.0); MONOCYTES % (AUTO) 12.5 % (1.7-9.3); NEUTROPHILS % (AUTO) 38.3 % (40.0-70.0); PLATELET COUNT (AUTO) 160 K/uL (130-430); RED BLOOD CELL COUNT(AUTO) 2.51 MIL/uL (4.2-6.2); RED CELL DISTRIBUTION WIDTH 15.8 % (9.0-15.0); WHITE BLOOD COUNT (AUTO) 2.6 K/uL (4.8-10.8)
[2022-06-16] MEDS: BUDESONIDE 0.5 MG/2 ML AMPUL.NEB INH SCH ×2 (07:00→20:46)
[2022-06-16 07:36] LABS: HEMATOCRIT 22.2 % (36-48)
--- NOTE | 2022-06-16 08:00 | NUR ---
Initial Notes Patient is AOx3. No s.s of distress noted. Breathing is even and nonlabored, on 1 L O2 via NC. No SOB noted. Patient denies pain. NO facial grimace noted. HOB elevated. Gt feeding on. IVF running. IV patent. Patient has been repositioned. Patient is eating breakfast. Bed locked, alarm on, and at lowest position. Call light within reach.
[2022-06-16] MEDS: CEFEPIME 2 GM in NS 100 ML IV SCH ×2 (08:25→21:47)
--- NOTE | 2022-06-16 08:25 | NUR ---
Scheduled IV abx given per order. Patient stable at this time.
[2022-06-16] MEDS: DOCUSATE SODIUM 100 MG CAPSULE PO SCH ×2 (09:00→21:00)
[2022-06-16] MEDS: MUPIROCIN 2% TOPICAL OINTMENT 22 GM NS SCH ×2 (10:20→21:00)
[2022-06-16] MEDS: DEUTETRABENAZINE PO SCH ×2 (10:21→21:52)
[2022-06-16] MEDS: NICOTINE 21 MG/24 HR PATCH.TD24 TD SCH (10:21)
[2022-06-16] MEDS: HEPARIN SODIUM,PORCINE 5,000 UNITS/ML VIAL SUBCUT SCH ×2 (10:22→21:52)
[2022-06-16] MEDS: GABAPENTIN 400 MG CAPSULE PO SCH ×3 (10:23→21:44)
[2022-06-16] MEDS: QUEtiapine FUMARATE 100 MG TABLET PO SCH ×2 (10:24→21:44)
[2022-06-16] MEDS: METOPROLOL TARTRATE 50 MG TABLET PO SCH ×2 (10:24→21:45)
[2022-06-16] MEDS: amLODIPine BESYLATE 10 MG TABLET PO SCH (10:24)
[2022-06-16] MEDS: LOSARTAN POTASSIUM 50 MG TABLET (COZAAR) PO SCH ×2 (10:25→21:00)
--- NOTE | 2022-06-16 10:53 | NUR ---
Notes Patient worked with PT earlier. patient request pain medication. No S.s of distress noted. No SOB noted. Breathing is even and nonlabored, on 1 L O2 via NC. GT feeding on. HOB elevated. Bed locked, alarm on, and at lowest position. Call light within reach.
[2022-06-16 11:31] VITALS: BP_SYST 128
[2022-06-16] MEDS: MICAFUNGIN SODIUM 100 MG in NS 100 ML IV SCH (13:51)
--- NOTE | 2022-06-16 13:51 | NUR ---
Scheduled IV abx given per order. Patient stable; resting comfortably in bed with no distress noted.
[2022-06-16 15:28] VITALS: BP_SYST 131
--- NOTE | 2022-06-16 15:48 | NUR ---
Notes Changed GT feeding. Gt running. No s.s of distress noted. Denies pain. HOB elevated. Bed locked, alarm on, and at lowest position. call light within reach.
--- NOTE | 2022-06-16 16:30 | NUR ---
Nutrition F/U Admitting Diagnosis: Complete Rectal Prolapse Medical Hx: Per EMR: 66 YOF who transferred from [facility] for evaluation/ treatment of rectal prolapse. Visual NFPE completed d/t patient falling asleep during interview plus seen with blankets covering the bottom half of her body: Moderate - Severe fat loss: orbitals and triceps; Moderate - Severe muscle wasting: temples, clavicles, and shoulders. PMHx: long history of psychological disorder, chronic smoker, COPD, anemia. Sx Hx: tummy tuck, silicone breast implants. hospital course updates: S/p code stroke on 06/08/22. S/p swallow eval 06/10/22: ST recommends puree NTL, however alternative means of nutrition necessary if patient continues to refuse foods. Per Dr Barker on 06/10/22: patient choked on food when he tried to feed her, MD recommends GT placement. Subjective Information: RD reviewed pt's current EMR including diet Hx, physician notes, nursing notes, pertinent labs/meds/procedures, care trends, and care activity. Short note d/t high workload. Per EMR review, pt is s/p PEG placement 06/13; tolerating TF; seen by ST again 06/15, at which time, ST rec for puree/NTL for oral grat and 1:1 feeder/full aspiration precautions. RD spoke w/ pt's OPTOMETRIST ASSISTANT this afternoon. She reported that pt has been tolerating TF well, however, during NOC shift, it was reported to her that pt prefers to lay flat on her back, and was repeatedly educated on importance of keeping HOB elevated d/t continuous infusion of TF via PEG. OPTOMETRIST ASSISTANT stated pt ate 100% of pudding at breakfast. RD visited pt at bedside -- TF seen infusing as per physician order. Pt also attested to consuming Ensure and pudding at breakfast and lunch. Pt would benefit from adding NTL to current Pureed diet order as well as increasing TF rate to better meet optimal nutritional needs. Ht: 5'8" Wt: 126#/57.3 kg (05/16) IBW: 140#/63.6 kg UBW: 150# (1 year ago) per pt CBW: 127# per bedscale wt taken by RD 06/03 Current Diet Order/Nutrition Support: Pureed x1 day & Jevity 1.2 at 60 ml/hr, Free Water Flush: Q6 via GT x1 day Medications: Reviewed Labs: Reviewed Weight Status: Underweight (BMI <21 for 65+) GI symptoms: None, per EMR 06/10 Last BM: x1 documented 06/10 Skin Integrity Comment: Venancio 11: abdominal incision; right arm/buttocks erythema 06/10 Left arm +1 pitting edema noted 06/09 Current % PO Negligible/poor Estimated Energy Expenditure (kcals/day) 7231-1885 (25-30 kcal/kg IBW d/t GERIAT, BMI <21, Sx healing) Estimated Protein Required (g/day) 64-96 (1-1.5 g/kg IBW d/t GERIAT, BMI <21, Sx healing) Estimated Fluid Required (l/day) 1.6-1.9 (1mL/kcal for maintenance) Problem/Etiology/Signs/Symptoms *MODIFIED* * Severe unintentional weight loss r/t suspected long-term inadequate oral intake a/e/b patient endorses 24lb and 16% weight loss x 6 months. (Ongoing) * Inadequate oral intake r/t clear liquid diet order a/e/b CLD provides 1531 kcal/day and 50g pro/day. (Resolved) * Swallowing difficulty r/t dysphagia a/e/b ST evaluation, patient choking on foods, diet order. (Ongoing, on Pureed diet for oral grat) Expected Outcomes/Goals - PO intake provides >85% estimated nutrient needs, slow wt gain w/in 1-2lbs per wk, skin integrity, nutrition-related labs trending WNL, improvements in bowel function, BM q1-3 days Dietitian Recommendations * Puree diet NTL, per ST * Jevity1.2 at 65 ml/hr, Free Water Flush: 150 ml Q6h via GT Provides: 1872 kcal/day, 87 gm protein/day, 1859 ml free water/day Meets: 98% upper end of estimated caloric needs, 91% of upepr end of estimated protein needs, and 98% of upper end of estimated fluid needs * Recommend daily MVI, VIT D, and fish oil High Risk: F/U 2-3 days
--- NOTE | 2022-06-16 16:38 | NUR ---
Discharge Planning: DCP spoke to Cielo [phone] in admissions for [facility] [phone] will accept patient if ISO is colonized and pending auth from insurance, [facility] P#[phone], F#[phone] information given to facility. DCP made CM aware.
--- NOTE | 2022-06-16 16:40 | NUR ---
Dietitian Recommendations * Puree diet NTL, per ST * Jevity1.2 at 65 ml/hr, Free Water Flush: 150 ml Q6h via GT Provides: 1872 kcal/day, 87 gm protein/day, 1859 ml free water/day Meets: 98% upper end of estimated caloric needs, 91% of upepr end of estimated protein needs, and 98% of upper end of estimated fluid needs * Recommend daily MVI, VIT D, and fish oil LP, MS, RD Please refer to Nutrition F/U for details.
--- NOTE | 2022-06-16 17:10 | NUR ---
Scheduled IV abx and po medication given per order. Checked blood sugar: 174 mg/dl - will cover per sliding scale.
--- NOTE | 2022-06-16 17:22 | NUR ---
Covered per sliding scale. Patient medicated for 6/10 pain at incision site. Patient stable at this time.
--- NOTE | 2022-06-16 19:02 | NUR ---
Closing Notes Patient is eating dinner. No s.s of distress noted. Patient is stable. Breathing is even and nonlabored, NC 1 L O2. No SOB. Patient denies pain. GT feeding running. HOB elevated. All needs met. Safety precautions in place and call light within reach. Will endorse care to oncoming nurse.
[2022-06-16] MEDS: MIRTAZAPINE 15 MG TABLET PO SCH (21:44)
[2022-06-16] MEDS: DOXEPINE (SINEQUAN) 25 MG CAP PO SCH (21:48)
[2022-06-17 01:15] VITALS: BP_SYST 94
[2022-06-17] MEDS: VANCOMYCIN HCL 750 MG in NS 250 ML IV SCH ×2 (02:00→14:00)
[2022-06-17] MEDS: traMADol HCL HCL 50 MG TABLET (ULTRAM) PO PRN ×3 (06:23→22:29)
[2022-06-17 06:47] LABS: BASOPHILS % (AUTO) 1.2 % (0.0-2.0); EOSINOPHILS % (AUTO) 1.3 % (0.0-4.0); HEMATOCRIT 22.8 % (36-48); HEMOGLOBIN 7.6 g/dL (12.0-16.0); LYMPHOCYTES # (AUTO) 1.5 K/uL (1.0-5.5); LYMPHOCYTES % (AUTO) 47.3 % (20.5-51.5); MEAN CORPUSCULAR HEMOGLOBIN 29 pg (27-31); MEAN CORPUSCULAR HGB CONC 33 % (32-36); MEAN CORPUSCULAR VOLUME 86 fL (79.0-98.0); MONOCYTES # (AUTO) 0.4 K/uL (0.0-1.0); MONOCYTES % (AUTO) 12.1 % (1.7-9.3); NEUTROPHILS # (AUTO) 1.2 K/uL (1.8-7.7); NEUTROPHILS % (AUTO) 38.1 % (40.0-70.0); PLATELET COUNT (AUTO) 180 K/uL (130-430); RED BLOOD CELL COUNT(AUTO) 2.63 MIL/uL (4.2-6.2); RED CELL DISTRIBUTION WIDTH 15.9 % (9.0-15.0); WHITE BLOOD COUNT (AUTO) 3.1 K/uL (4.8-10.8)
[2022-06-17] MEDS: BUDESONIDE 0.5 MG/2 ML AMPUL.NEB INH SCH ×2 (07:00→19:00)
--- NOTE | 2022-06-17 07:00 | NUR ---
receive the patient from the manager shift RN in a stable condition with admitting diagnosis of complete rectal prolapse . Aox4 . no signs and symptoms of respiratory distress , no complain of pain . will continue to monitor
[2022-06-17 07:49] LABS: ALBUMIN 1.4 g/dL (3.4-4.8); CALCIUM 8.5 mg/dL (8.4-11.0); CREATININE 0.74 mg/dL (0.55-1.30); TOTAL BILIRUBIN 0.3 mg/dL (0.0-1.0)
[2022-06-17 08:00] VITALS: BP_SYST 122
[2022-06-17 09:26] VITALS: BP_SYST 96
[2022-06-17] MEDS: IBUPROFEN 800 MG TABLET PO PRN (10:22)
--- NOTE | 2022-06-17 10:22 | NUR ---
patient complain of pain . Motrin was given by the RN will continue to monitor in 30 mins
[2022-06-17] MEDS: CEFEPIME 2 GM in NS 100 ML IV SCH ×2 (10:23→22:20)
[2022-06-17] MEDS: DOCUSATE SODIUM 100 MG CAPSULE PO SCH ×2 (10:23→22:18)
[2022-06-17] MEDS: LOSARTAN POTASSIUM 50 MG TABLET (COZAAR) PO SCH ×2 (10:25→22:18)
[2022-06-17] MEDS: GABAPENTIN 400 MG CAPSULE PO SCH ×3 (10:26→22:19)
[2022-06-17] MEDS: QUEtiapine FUMARATE 100 MG TABLET PO SCH ×2 (10:26→22:24)
[2022-06-17] MEDS: METOPROLOL TARTRATE 50 MG TABLET PO SCH ×2 (10:26→22:19)
[2022-06-17] MEDS: amLODIPine BESYLATE 10 MG TABLET PO SCH (10:27)
[2022-06-17] MEDS: DEUTETRABENAZINE PO SCH ×2 (10:28→22:21)
[2022-06-17] MEDS: HEPARIN SODIUM,PORCINE 5,000 UNITS/ML VIAL SUBCUT SCH ×2 (10:31→22:17)
[2022-06-17] MEDS: NICOTINE 21 MG/24 HR PATCH.TD24 TD SCH (10:31)
[2022-06-17 14:11] VITALS: BP_SYST 123
[2022-06-17] MEDS: MUPIROCIN 2% TOPICAL OINTMENT 22 GM NS SCH ×2 (15:48→22:22)
--- NOTE | 2022-06-17 15:48 | NUR ---
patient complain of pain . abdomen tramadol was given by the RN . will continue to monitor after 30mins by the RN
[2022-06-17] MEDS: MICAFUNGIN SODIUM 100 MG in NS 100 ML IV SCH (15:56)
[2022-06-17 16:54] VITALS: BP_SYST 122
[2022-06-17] MEDS: INSULIN REGULAR, HUMAN 100 UNITS/ML, 3 ML VIAL (humuLIN R) SUBCUT PRN (17:45)
--- NOTE | 2022-06-17 18:43 | NUR ---
will endorse to night RN for continuity of care
[2022-06-17] MEDS: DOXEPINE (SINEQUAN) 25 MG CAP PO SCH (22:18)
[2022-06-17] MEDS: MIRTAZAPINE 15 MG TABLET PO SCH (22:19)
[2022-06-18 00:24] VITALS: BP_SYST 109
[2022-06-18] MEDS: VANCOMYCIN HCL 750 MG in NS 250 ML IV SCH ×2 (01:24→14:00)
[2022-06-18] MEDS: traMADol HCL HCL 50 MG TABLET (ULTRAM) PO PRN ×2 (05:55→16:22)
[2022-06-18] MEDS: IBUPROFEN 800 MG TABLET PO PRN ×2 (06:30→20:26)
[2022-06-18] MEDS: BUDESONIDE 0.5 MG/2 ML AMPUL.NEB INH SCH ×2 (07:00→19:00)
[2022-06-18] MEDS: SUCRALFATE 1 GM TABLET PO SCH ×3 (07:00→16:25)
[2022-06-18 07:05] LABS: BASOPHILS % (AUTO) 1.2 % (0.0-2.0); EOSINOPHILS % (AUTO) 0.6 % (0.0-4.0); HEMATOCRIT 22.4 % (36-48); HEMOGLOBIN 7.5 g/dL (12.0-16.0); LYMPHOCYTES # (AUTO) 1.2 K/uL (1.0-5.5); LYMPHOCYTES % (AUTO) 41.3 % (20.5-51.5); MEAN CORPUSCULAR HEMOGLOBIN 29 pg (27-31); MEAN CORPUSCULAR HGB CONC 33 % (32-36); MEAN CORPUSCULAR VOLUME 87 fL (79.0-98.0); MONOCYTES # (AUTO) 0.3 K/uL (0.0-1.0); NEUTROPHILS # (AUTO) 1.3 K/uL (1.8-7.7); NEUTROPHILS % (AUTO) 44.9 % (40.0-70.0); PLATELET COUNT (AUTO) 176 K/uL (130-430); RED BLOOD CELL COUNT(AUTO) 2.57 MIL/uL (4.2-6.2); RED CELL DISTRIBUTION WIDTH 16.2 % (9.0-15.0); WHITE BLOOD COUNT (AUTO) 2.9 K/uL (4.8-10.8)
[2022-06-18 09:00] VITALS: BP_SYST 97
[2022-06-18] MEDS: amLODIPine BESYLATE 10 MG TABLET PO SCH (09:00)
[2022-06-18] MEDS: DOCUSATE SODIUM 100 MG CAPSULE PO SCH ×2 (09:00→21:18)
[2022-06-18] MEDS: METOPROLOL TARTRATE 50 MG TABLET PO SCH ×2 (09:00→21:20)
[2022-06-18] MEDS: LOSARTAN POTASSIUM 50 MG TABLET (COZAAR) PO SCH ×2 (09:00→21:00)
--- NOTE | 2022-06-18 09:00 | NUR ---
tubefeeding currently running. 0 residual volume. abd binder on. incision site potato chip sorter with no drainage. all needs meet at this time. will continue to monitor.
[2022-06-18] MEDS: GABAPENTIN 400 MG CAPSULE PO SCH ×3 (09:49→21:06)
[2022-06-18] MEDS: NICOTINE 21 MG/24 HR PATCH.TD24 TD SCH (09:49)
[2022-06-18] MEDS: CEFEPIME 2 GM in NS 100 ML IV SCH ×2 (09:50→21:07)
[2022-06-18] MEDS: DEUTETRABENAZINE PO SCH ×2 (09:51→21:18)
[2022-06-18] MEDS: HEPARIN SODIUM,PORCINE 5,000 UNITS/ML VIAL SUBCUT SCH ×2 (09:52→21:15)
[2022-06-18] MEDS: MUPIROCIN 2% TOPICAL OINTMENT 22 GM NS SCH ×2 (09:54→21:18)
[2022-06-18] MEDS: QUEtiapine FUMARATE 100 MG TABLET PO SCH ×2 (09:54→21:06)
[2022-06-18 11:28] VITALS: BP_SYST 117
[2022-06-18 12:50] VITALS: BP_SYST 131
[2022-06-18] MEDS: MICAFUNGIN SODIUM 100 MG in NS 100 ML IV SCH (14:00)
[2022-06-18 15:49] VITALS: BP_SYST 99
--- NOTE | 2022-06-18 19:20 | NUR ---
endorsed care to night rn. pt in bed resting. all needs meet at this time
[2022-06-18 20:00] VITALS: BP_SYST 106
[2022-06-18] MEDS: DOXEPINE (SINEQUAN) 25 MG CAP PO SCH (21:06)
[2022-06-18] MEDS: MIRTAZAPINE 15 MG TABLET PO SCH (21:06)
[2022-06-19 00:46] VITALS: BP_SYST 113
[2022-06-19] MEDS: VANCOMYCIN HCL 750 MG in NS 250 ML IV SCH ×2 (02:00→14:01)
[2022-06-19] MEDS: traMADol HCL HCL 50 MG TABLET (ULTRAM) PO PRN ×3 (05:51→21:40)
[2022-06-19] MEDS: IBUPROFEN 800 MG TABLET PO PRN ×3 (05:52→21:40)
[2022-06-19] MEDS: SUCRALFATE 1 GM TABLET PO SCH ×2 (06:01→18:43)
[2022-06-19] MEDS: BUDESONIDE 0.5 MG/2 ML AMPUL.NEB INH SCH ×2 (07:00→19:00)
[2022-06-19] MEDS: CEFEPIME 2 GM in NS 100 ML IV SCH ×2 (09:00→21:53)
[2022-06-19] MEDS: DOCUSATE SODIUM 100 MG CAPSULE PO SCH ×3 (09:00→21:37)
[2022-06-19 09:08] LABS: ANTI-SMOOTH MUSCLE AB 22 Units (0-19)
[2022-06-19] MEDS: LOSARTAN POTASSIUM 50 MG TABLET (COZAAR) PO SCH ×2 (09:26→21:38)
[2022-06-19] MEDS: QUEtiapine FUMARATE 100 MG TABLET PO SCH ×2 (09:26→21:47)
[2022-06-19] MEDS: METOPROLOL TARTRATE 50 MG TABLET PO SCH ×2 (09:26→21:39)
[2022-06-19] MEDS: amLODIPine BESYLATE 10 MG TABLET PO SCH (09:27)
[2022-06-19] MEDS: GABAPENTIN 400 MG CAPSULE PO SCH ×3 (09:27→21:37)
[2022-06-19] MEDS: NICOTINE 21 MG/24 HR PATCH.TD24 TD SCH (09:27)
[2022-06-19] MEDS: MUPIROCIN 2% TOPICAL OINTMENT 22 GM NS SCH (09:28)
[2022-06-19] MEDS: DEUTETRABENAZINE PO SCH ×2 (09:28→21:53)
[2022-06-19] MEDS: HEPARIN SODIUM,PORCINE 5,000 UNITS/ML VIAL SUBCUT SCH ×2 (09:29→21:45)
[2022-06-19 10:09] LABS: ALBUMIN 1.5 g/dL (3.4-4.8); CALCIUM 8.9 mg/dL (8.4-11.0); CREATININE 0.9 mg/dL (0.55-1.30); TOTAL BILIRUBIN 0.2 mg/dL (0.0-1.0)
[2022-06-19 11:49] VITALS: BP_SYST 125
[2022-06-19] MEDS: MICAFUNGIN SODIUM 100 MG in NS 100 ML IV SCH (14:00)
[2022-06-19 16:24] VITALS: BP_SYST 108
--- NOTE | 2022-06-19 18:30 | NUR ---
Miss Adorno has been assessed as indicated. She has been treated for pain with PRN meds. Efforts have been made to keep her dry. She has been noted to be pleasant and cooperative. She has had a BM this shift that was formed. She is resting quietly at this time
[2022-06-19 20:00] VITALS: BP_SYST 116
[2022-06-19] MEDS: MIRTAZAPINE 15 MG TABLET PO SCH (21:36)
[2022-06-19] MEDS: DOXEPINE (SINEQUAN) 25 MG CAP PO SCH (21:37)
[2022-06-20 00:28] VITALS: BP_SYST 113
[2022-06-20] MEDS: VANCOMYCIN HCL 750 MG in NS 250 ML IV SCH (03:22)
[2022-06-20] MEDS: IBUPROFEN 800 MG TABLET PO PRN ×2 (05:43→14:29)
[2022-06-20] MEDS: traMADol HCL HCL 50 MG TABLET (ULTRAM) PO PRN ×3 (05:44→20:36)
[2022-06-20] MEDS: SUCRALFATE 1 GM TABLET PO SCH ×2 (05:44→17:25)
[2022-06-20 06:52] LABS: BASOPHILS % (AUTO) 1.1 % (0.0-2.0); EOSINOPHILS # (AUTO) 0.1 K/uL (0.0-0.4); EOSINOPHILS % (AUTO) 3.1 % (0.0-4.0); HEMATOCRIT 22.1 % (36-48); HEMOGLOBIN 7.4 g/dL (12.0-16.0); LYMPHOCYTES # (AUTO) 1.5 K/uL (1.0-5.5); LYMPHOCYTES % (AUTO) 56.1 % (20.5-51.5); MEAN CORPUSCULAR HEMOGLOBIN 29 pg (27-31); MEAN CORPUSCULAR HGB CONC 34 % (32-36); MEAN CORPUSCULAR VOLUME 87 fL (79.0-98.0); MONOCYTES # (AUTO) 0.4 K/uL (0.0-1.0); MONOCYTES % (AUTO) 14.1 % (1.7-9.3); NEUTROPHILS % (AUTO) 25.6 % (40.0-70.0); PLATELET COUNT (AUTO) 220 K/uL (130-430); RED BLOOD CELL COUNT(AUTO) 2.54 MIL/uL (4.2-6.2); RED CELL DISTRIBUTION WIDTH 16.6 % (9.0-15.0); WHITE BLOOD COUNT (AUTO) 2.7 K/uL (4.8-10.8)
[2022-06-20] MEDS: BUDESONIDE 0.5 MG/2 ML AMPUL.NEB INH SCH ×2 (07:00→19:00)
[2022-06-20 07:07] LABS: NEUTROPHILS # (AUTO) 0.7 K/uL (1.8-7.7)
[2022-06-20 08:00] VITALS: BP_SYST 121
[2022-06-20 08:05] VITALS: BP_SYST 121
[2022-06-20 08:05] LABS: ERYTHROCYTE SEDIMENTATION RATE 99 MM/HR (0-20)
[2022-06-20] MEDS: DOCUSATE SODIUM 100 MG CAPSULE PO SCH ×2 (09:00→20:37)
[2022-06-20] MEDS: GABAPENTIN 400 MG CAPSULE PO SCH ×3 (10:19→20:38)
[2022-06-20] MEDS: QUEtiapine FUMARATE 100 MG TABLET PO SCH ×2 (10:19→20:37)
[2022-06-20] MEDS: METOPROLOL TARTRATE 50 MG TABLET PO SCH ×2 (10:20→20:37)
[2022-06-20] MEDS: amLODIPine BESYLATE 10 MG TABLET PO SCH (10:21)
[2022-06-20] MEDS: LOSARTAN POTASSIUM 50 MG TABLET (COZAAR) PO SCH ×2 (10:21→20:37)
[2022-06-20] MEDS: NICOTINE 21 MG/24 HR PATCH.TD24 TD SCH (10:21)
[2022-06-20] MEDS: DEUTETRABENAZINE PO SCH ×2 (10:22→20:39)
[2022-06-20] MEDS: CEFEPIME 2 GM in NS 100 ML IV SCH (10:23)
[2022-06-20] MEDS: HEPARIN SODIUM,PORCINE 5,000 UNITS/ML VIAL SUBCUT SCH ×2 (11:14→20:46)
[2022-06-20 12:43] VITALS: BP_SYST 133
[2022-06-20] MEDS: MICAFUNGIN SODIUM 150 MG in NS 100 ML IV SCH (14:30)
--- NOTE | 2022-06-20 16:45 | NUR ---
Dr Nation made aware that PEG tube has been displaced/ informed that a garcia has been placed. He isntructs staff not to use it. he will follow up on 06/21/22.
[2022-06-20 18:13] VITALS: BP_SYST 120
--- NOTE | 2022-06-20 18:30 | NUR ---
Miss Adorno has been assessed as indicated. She has been successfully treated for generalized pain x1 this shift. She continues to be incontinent of bladder. uses the bedpan for BM and has had a BM this shift moderate and formed. Her PEG tube is no longer in place GI MD consulting senior practice director made aware. A Monzon cath been placed in order to keep the opening open. There was the visualization of stomach contents when the tube was placed. She has a puree diet and eats 100% of all meals. abdominal binder is in place and surgical incision is INFANT CHILDCARE PROVIDER.
--- NOTE | 2022-06-20 19:30 | NUR ---
Handoff given to Chelsi
[2022-06-20 20:10] VITALS: BP_SYST 124
--- NOTE | 2022-06-20 20:10 | NUR ---
Opening notes Pt AAOx4, VSS, no s/s distress noted. GT dressing with old red drainage. Applied new GT site dressing, abdominal binder on. Pt incontinent of urine, pericare provided gown and linens changed. Bed low, locked, siderails up x3, alarm on. Call light witiin. To monitor.
[2022-06-20] MEDS: MIRTAZAPINE 15 MG TABLET PO SCH (20:37)
[2022-06-20] MEDS: DOXEPINE (SINEQUAN) 25 MG CAP PO SCH (23:29)
--- NOTE | 2022-06-21 00:45 | NUR ---
Rounds Pt asleep, respirations even and unlabored. Safety maintained. Bed low, locked, siderails up x3, alarm on. To monitor.
[2022-06-21 02:09] VITALS: BP_SYST 124
[2022-06-21] MEDS: SUCRALFATE 1 GM TABLET PO SCH ×2 (06:04→16:16)
[2022-06-21] MEDS: traMADol HCL HCL 50 MG TABLET (ULTRAM) PO PRN ×2 (06:28→16:16)
[2022-06-21] MEDS: IBUPROFEN 800 MG TABLET PO PRN ×2 (06:29→16:17)
--- NOTE | 2022-06-21 06:30 | NUR ---
Closing notes/Pain Pt awake, alert, no s/s distress noted. Pt incontinent of urine. Pericare provided and linens changed. Abd binder changed. GTube with garcia catheter on to prevent site from closing up. Pt medicated with Toradol and Motrin for c/o abd pain. Call light within reach. Bed low, locked, siderails up x3, alarm on. To endorse to AM nurse.
[2022-06-21] MEDS: BUDESONIDE 0.5 MG/2 ML AMPUL.NEB INH SCH ×2 (07:00→19:00)
[2022-06-21 07:10] LABS: BASOPHILS % (AUTO) 0.6 % (0.0-2.0); EOSINOPHILS % (AUTO) 0.9 % (0.0-4.0); HEMOGLOBIN 8.1 g/dL (12.0-16.0); LYMPHOCYTES # (AUTO) 1.3 K/uL (1.0-5.5); LYMPHOCYTES % (AUTO) 25.5 % (20.5-51.5); MEAN CORPUSCULAR HEMOGLOBIN 30 pg (27-31); MEAN CORPUSCULAR HGB CONC 34 % (32-36); MEAN CORPUSCULAR VOLUME 88 fL (79.0-98.0); MONOCYTES # (AUTO) 0.6 K/uL (0.0-1.0); MONOCYTES % (AUTO) 10.6 % (1.7-9.3); NEUTROPHILS # (AUTO) 3.3 K/uL (1.8-7.7); NEUTROPHILS % (AUTO) 62.4 % (40.0-70.0); PLATELET COUNT (AUTO) 273 K/uL (130-430); RED BLOOD CELL COUNT(AUTO) 2.74 MIL/uL (4.2-6.2); RED CELL DISTRIBUTION WIDTH 16.8 % (9.0-15.0); WHITE BLOOD COUNT (AUTO) 5.3 K/uL (4.8-10.8)
[2022-06-21] MEDS ORDERED: GASTROGRAFIN 120 ML ONE (10:16)
[2022-06-21 12:27] VITALS: BP_SYST 122
--- NOTE | 2022-06-21 12:48 | NUR ---
GI MD DR GARDUNO WAS CALLED, RE: XRAY RESULT. SPOKE TO LYNN.
--- NOTE | 2022-06-21 13:10 | NUR ---
Patient was unavailable earlier due to having G-tube issues.
[2022-06-21] MEDS: GABAPENTIN 400 MG CAPSULE PO SCH ×3 (15:51→20:54)
[2022-06-21] MEDS: QUEtiapine FUMARATE 100 MG TABLET PO SCH ×2 (15:52→20:55)
[2022-06-21] MEDS: amLODIPine BESYLATE 10 MG TABLET PO SCH (15:53)
[2022-06-21] MEDS: LOSARTAN POTASSIUM 50 MG TABLET (COZAAR) PO SCH ×2 (15:54→20:55)
[2022-06-21] MEDS: DOCUSATE SODIUM 100 MG CAPSULE PO SCH ×2 (15:55→20:56)
--- NOTE | 2022-06-21 15:55 | NUR ---
Discharge Planning: DCP spoke with Mirian at [facility] P#[phone] F#[phone] they are at risk for retirement, DCP faxed pt referral and insurance will look for facility.
[2022-06-21] MEDS: METOPROLOL TARTRATE 50 MG TABLET PO SCH ×2 (15:57→20:55)
[2022-06-21] MEDS: NICOTINE 21 MG/24 HR PATCH.TD24 TD SCH (15:58)
[2022-06-21 16:00] VITALS: BP_SYST 127
[2022-06-21] MEDS: DEUTETRABENAZINE PO SCH ×2 (16:00→20:56)
[2022-06-21] MEDS: HEPARIN SODIUM,PORCINE 5,000 UNITS/ML VIAL SUBCUT SCH ×2 (16:04→20:58)
[2022-06-21] MEDS: MICAFUNGIN SODIUM 150 MG in NS 100 ML IV SCH (16:07)
--- NOTE | 2022-06-21 17:15 | NUR ---
Nutrition F/U Admitting Diagnosis: Complete Rectal Prolapse Medical Hx: Per EMR: 66 YOF who transferred from [facility] for evaluation/ treatment of rectal prolapse. Visual NFPE completed d/t patient falling asleep during interview plus seen with blankets covering the bottom half of her body: Moderate - Severe fat loss: orbitals and triceps; Moderate - Severe muscle wasting: temples, clavicles, and shoulders. PMHx: long history of psychological disorder, chronic smoker, COPD, anemia. Sx Hx: tummy tuck, silicone breast implants. Hospital course updates: S/p code stroke on 06/08/22. S/p swallow eval 06/10/22: ST recommends puree NTL, however alternative means of nutrition necessary if patient continues to refuse foods. Per Dr Barker on 06/10/22: patient choked on food when he tried to feed her, MD recommends GT placement. Pt is s/p PEG placement 06/13; seen by ST again 06/15, at which time, ST rec for puree/NTL for oral grat and 1:1 feeder/full aspiration precautions. Subjective Information: RD reviewed pt's current EMR including diet Hx, physician notes, nursing notes, pertinent labs/meds/procedures, care trends, and care activity. Per EMR, pt noted with redness at GT site and GT will be replaced 06/21. RD rounded to patient room and spoke with patient at bedside. Pt reports appetite is still not well but denied N/V/D/C. RD witnessed Jevity 1.5 hanging but TF off (for GT replacement). FNS currently out of stock of Jevity 1.2, RD spoke with RN on the phone and provided RN new TF recs for Jevity 1.5. Per RN, has approved for TF to restart after GT replacement. Pt on Pureed NTL diet and consuming 56% PO intake, PO provides average 1386 kcals and 54g protein/day. This equals 86% lower end calorie needs and 84% lower end protein needs. Per pt, LBM 06/20 x 1 and was normal. Pt requested Yoplait yogurt but dislikes Armenian yogurt. Pt enjoys eating soft foods and asked for ice cream. Computrition updated. Ht: 5'8" Wt: 126#/57.3 kg (05/16) IBW: 140#/63.6 kg UBW: 150# (1 year ago) per pt CBW: 127# per bedscale wt taken by RD 06/03 Current Diet Order/Nutrition Support: Pureed NTL x 5 days & Jevity 1.2 at 65 ml/hr, Free Water Flush: 150 mL Q6h via GT x 5 days Medications: Micafungin, Heparin, Lopressor, Colace, Nicotine patch Labs: Na 132 L, BG 161 H, POC BG 167 H, TG 290 H Weight Status: Underweight (BMI <21 for 65+) GI symptoms: None, per EMR 06/21 Last BM: x1 documented 06/20 Skin Integrity Comment: Venancio 16: abdominal incision; right arm/buttocks erythema 06/20 Left arm +3 pitting edema noted 06/21 Current % PO Fair 56% x 8 meals Estimated Energy Expenditure (kcals/day) 0891-8029 (25-30 kcal/kg IBW d/t GERIAT, BMI <21, Sx healing) Estimated Protein Required (g/day) 64-96 (1-1.5 g/kg IBW d/t GERIAT, BMI <21, Sx healing) Estimated Fluid Required (l/day) 1.6-1.9 (1mL/kcal for maintenance) Problem/Etiology/Signs/Symptoms *MODIFIED* * Severe unintentional weight loss r/t suspected long-term inadequate oral intake a/e/b patient endorses 24lb and 16% weight loss x 6 months (Ongoing) * Inadequate oral intake r/t clear liquid diet order a/e/b CLD provides 1531 kcal/day and 50g pro/day (Resolved) * Swallowing difficulty r/t dysphagia a/e/b ST evaluation, patient choking on foods, diet order (Ongoing, on Pureed diet for oral grat) Expected Outcomes/Goals - PO intake provides >85% estimated nutrient needs, slow wt gain w/in 1-2lbs per wk, skin integrity, nutrition-related labs trending WNL, improvements in bowel function, BM q1-3 days Dietitian Recommendations * Continue Puree diet NTL * Jevity1.5 at 20 ml/hr x 24h, Free Water Flush: 150 ml Q4h via GT - Provides: 720 kcal/day, 30 gm protein/day, 1565 ml (365 EN only) free water/day - Meets: 45% upper est kcal needs, 47% upper est PRO needs, 98% of upper est fluid needs - PO avg % + TF Provides: ~2100 kcals (109% upper kcal needs), 84g protein (131% lower PRO needs) -- adequate to meet patients nutritional needs * Recommend daily MVI, VIT D, and fish oil * If PO intake declines, consult RD for updated TF recommendations Moderate Risk: F/U 3-5 days
--- NOTE | 2022-06-21 17:20 | NUR ---
Dr. Anthony informed radiology results from PEG placement verification. He states that it is OK to use PEG tube.
--- NOTE | 2022-06-21 17:20 | NUR ---
Dietitian Recommendations * Continue Puree diet NTL * Jevity1.5 at 20 ml/hr x 24h, Free Water Flush: 150 ml Q4h via GT - Provides: 720 kcal/day, 30 gm protein/day, 1565 ml (365 EN only) free water/day - Meets: 45% upper est kcal needs, 47% upper est PRO needs, 98% of upper est fluid needs - PO avg % + TF Provides: ~2100 kcals (109% upper kcal needs), 84g protein (131% lower PRO needs) * Recommend daily MVI, VIT D, and fish oil * If PO intake declines, consult RD for updated TF recommendations Please refer to nutrition F/U for details, thanks! CC, MPH, RDN
--- NOTE | 2022-06-21 17:35 | NUR ---
PATIENT'S OWN MED Miss Adorno takes Austedo 6mg BID. this is a non formulary medication. The outside pharmacy, [facility], has been contacted for a refill. [phone]. Miss Adorno states that her son may be able to pick it up and bring it to the hospital. She states that she has not spoken to her son since she has been admitted on 05/14/22 Her son's name is Jeramie Adorno in [facility]. She tea not know his number. A number was located with an internet search [phone]. a voice mail was left asking him to call the nurse for his mother with call back information.
--- NOTE | 2022-06-21 18:00 | NUR ---
No Jevity 1.2 available. feeder switchboard operator recs jevity1.5 at 20ml for substitution
--- NOTE | 2022-06-21 19:15 | NUR ---
Handoff given to Rayna
[2022-06-21 20:00] VITALS: BP_SYST 129
[2022-06-21] MEDS: MIRTAZAPINE 15 MG TABLET PO SCH (20:54)
[2022-06-21] MEDS: DOXEPINE (SINEQUAN) 25 MG CAP PO SCH (20:54)
[2022-06-21] MEDS: MAG-AL HYDROX/SIMETH 30 ML UDC PO PRN (20:57)
[2022-06-22] VITALS: BP_SYST 123
--- NOTE | 2022-06-22 04:00 | NUR ---
PATIENT CURRENTLY IN BED RESTING, PATIENT ONLY C/O BLOATING/GAS PAIN, PRN MYLANTA GIVEN, MEDICATION WAS HELPFUL. PATIENT WITH ABD BINDER PLACED AND FEEDING TUBE CONNECTED TO GTUBE. PATIENT RECEIVING JEVITY 1.5 @ 20 ML/HR/ DR. ESPITIA ENDORSED TO DAY SHIFT NURSE THAT GTUBE WAS GOOD TO USE FOR FEEDING. PATIENT ALSO HAS ORDER FOR PUREED DIET. THIS NURSE ENDORSED TO NURSE CONTINUING CARE FOR THIS SHIFT DUE TO ASSIGNMENT CHANGE TO HAVE DAY SHIFT NURSE FOLLOW UP WITH MD ABOUT JASON AND RETENTION SUTURES THAT WERE PLACED 05.23.2022 AFTER SURGICAL PROCEDURE. PATIENT TOLERATING PEG TUBE FEEDING WELL. PATIENT HOME MED, DUETETRABANAZINE (AUSTEDO 6MG), ONLY HAS 1 DOSE LEFT, UNABLE TO OBTAIN REFILL FROM PHARMACY. DAY SHIFT NURSE ATTEMPTED TO GET IN TOUCH WITH PATIENT'S SON YESTERDAY TO ASK IF HE COULD GET A REFILL FROM HER PHARMACY AND BRING IT IN BUT WAS UNABLE TO REACH HIM AND LEFT A MESSAGE ON HIS PHONE. THE SON DID NOT RETURN THE CALL. THIS NURSE ENDORSED TO THE NURSE CONTINUING CARE TO NOTIFY THE ON COMING SHIFT ABOUT PATIENT'S HOME MED.
[2022-06-22] MEDS: BUDESONIDE 0.5 MG/2 ML AMPUL.NEB INH SCH ×2 (07:00→19:00)
[2022-06-22 07:19] LABS: BASOPHILS % (AUTO) 0.8 % (0.0-2.0); EOSINOPHILS # (AUTO) 0.1 K/uL (0.0-0.4); HEMATOCRIT 24.5 % (36-48); HEMOGLOBIN 8.1 g/dL (12.0-16.0); LYMPHOCYTES # (AUTO) 1.7 K/uL (1.0-5.5); LYMPHOCYTES % (AUTO) 44.3 % (20.5-51.5); MEAN CORPUSCULAR HEMOGLOBIN 29 pg (27-31); MEAN CORPUSCULAR HGB CONC 33 % (32-36); MEAN CORPUSCULAR VOLUME 86 fL (79.0-98.0); MONOCYTES # (AUTO) 0.7 K/uL (0.0-1.0); MONOCYTES % (AUTO) 17.7 % (1.7-9.3); NEUTROPHILS # (AUTO) 1.4 K/uL (1.8-7.7); NEUTROPHILS % (AUTO) 35.2 % (40.0-70.0); PLATELET COUNT (AUTO) 282 K/uL (130-430); RED BLOOD CELL COUNT(AUTO) 2.84 MIL/uL (4.2-6.2); RED CELL DISTRIBUTION WIDTH 17.4 % (9.0-15.0); WHITE BLOOD COUNT (AUTO) 3.9 K/uL (4.8-10.8)
[2022-06-22 07:49] VITALS: BP_SYST 118
[2022-06-22] MEDS: MAG-AL HYDROX/SIMETH 30 ML UDC PO PRN (10:03)
[2022-06-22] MEDS: QUEtiapine FUMARATE 100 MG TABLET PO SCH ×3 (10:03→21:39)
[2022-06-22] MEDS: METOPROLOL TARTRATE 50 MG TABLET PO SCH ×2 (10:04→21:40)
[2022-06-22] MEDS: DOCUSATE SODIUM 100 MG CAPSULE PO SCH ×2 (10:04→21:00)
[2022-06-22] MEDS: IBUPROFEN 800 MG TABLET PO PRN ×3 (10:04→21:55)
[2022-06-22] MEDS: GABAPENTIN 400 MG CAPSULE PO SCH ×3 (10:04→21:39)
[2022-06-22] MEDS: HEPARIN SODIUM,PORCINE 5,000 UNITS/ML VIAL SUBCUT SCH ×2 (10:05→21:46)
[2022-06-22] MEDS: amLODIPine BESYLATE 10 MG TABLET PO SCH (10:08)
[2022-06-22] MEDS: NICOTINE 21 MG/24 HR PATCH.TD24 TD SCH (10:08)
[2022-06-22] MEDS: LOSARTAN POTASSIUM 50 MG TABLET (COZAAR) PO SCH ×2 (10:08→21:39)
[2022-06-22] MEDS: SUCRALFATE 1 GM TABLET PO SCH ×2 (10:10→12:31)
[2022-06-22] MEDS: DEUTETRABENAZINE PO SCH ×2 (10:10→21:00)
[2022-06-22 11:30] VITALS: BP_SYST 112
[2022-06-22] MEDS: traMADol HCL HCL 50 MG TABLET (ULTRAM) PO PRN ×2 (12:11→17:28)
[2022-06-22] MEDS: MICAFUNGIN SODIUM 150 MG in NS 100 ML IV SCH (12:31)
[2022-06-22 15:39] VITALS: BP_SYST 113
--- NOTE | 2022-06-22 17:05 | NUR ---
PICC Line dressing changed.
--- NOTE | 2022-06-22 18:50 | NUR ---
Report given to date night sitter RN for continuity of care. Patient stable condition. No distress noted.
--- NOTE | 2022-06-22 18:52 | NUR ---
Report given to plater barrel RN for continuity of care. Patient stable condition. No distress noted.
[2022-06-22 20:00] VITALS: BP_SYST 126
[2022-06-22] MEDS: DOXEPINE (SINEQUAN) 25 MG CAP PO SCH (21:39)
[2022-06-22] MEDS: MIRTAZAPINE 15 MG TABLET PO SCH (21:39)
[2022-06-23] MEDS: SUCRALFATE 1 GM TABLET PO SCH ×2 (06:13→14:40)
[2022-06-23] MEDS: BUDESONIDE 0.5 MG/2 ML AMPUL.NEB INH SCH ×2 (07:00→19:00)
--- NOTE | 2022-06-23 07:00 | NUR ---
Report received from cage shift manager RN for continuity of care. Patient stable.
[2022-06-23 08:00] VITALS: BP_SYST 120
[2022-06-23] MEDS: DEUTETRABENAZINE PO SCH ×2 (09:00→20:18)
--- NOTE | 2022-06-23 09:17 | NUR ---
Discharge Planning: DCP followed up with [facility] at [facility] P#[phone] F#[phone] [facility] and declined pt history of AMA and [place] no ISO beds. Adamaris requested for the two facilities to reach out to their sister facilities. [facility] will continue to send out referral. BIBP fto follow up.
[2022-06-23] MEDS: LOSARTAN POTASSIUM 50 MG TABLET (COZAAR) PO SCH ×2 (10:17→20:35)
[2022-06-23] MEDS: amLODIPine BESYLATE 10 MG TABLET PO SCH (10:17)
[2022-06-23] MEDS: METOPROLOL TARTRATE 50 MG TABLET PO SCH ×2 (10:17→20:36)
[2022-06-23] MEDS: GABAPENTIN 400 MG CAPSULE PO SCH ×3 (10:18→20:34)
[2022-06-23] MEDS: DOCUSATE SODIUM 100 MG CAPSULE PO SCH ×2 (10:18→20:29)
[2022-06-23] MEDS: traMADol HCL HCL 50 MG TABLET (ULTRAM) PO PRN ×2 (10:19→16:50)
[2022-06-23] MEDS: HEPARIN SODIUM,PORCINE 5,000 UNITS/ML VIAL SUBCUT SCH ×2 (10:19→20:47)
[2022-06-23] MEDS: NICOTINE 21 MG/24 HR PATCH.TD24 TD SCH (10:22)
[2022-06-23 11:23] VITALS: BP_SYST 121
[2022-06-23] MEDS: MICAFUNGIN SODIUM 150 MG in NS 100 ML IV SCH (14:40)
[2022-06-23] MEDS: IBUPROFEN 800 MG TABLET PO PRN (14:40)
--- NOTE | 2022-06-23 15:44 | NUR ---
[facility] [address] at [facility] called and stated patient does not meet LTAC criteria-The insurance has denied LTAC-José Miguel- she will continue to look for SNF placement. She will give a BRY to any non-contracted SNF that accepts the patient.
[2022-06-23 16:04] VITALS: BP_SYST 140
[2022-06-23 17:54] LABS: ALBUMIN 2.2 g/dL (3.4-4.8); BILIRUBIN,DIRECT 0.1 mg/dL (0.0-0.3); TOTAL BILIRUBIN 0.3 mg/dL (0.0-1.0)
--- NOTE | 2022-06-23 19:44 | NUR ---
Report given to transit driver RN for continuity of care. Patient stable condition. No distress noted.
[2022-06-23 20:00] VITALS: BP_SYST 119
[2022-06-23] MEDS: DOXEPINE (SINEQUAN) 25 MG CAP PO SCH (20:35)
[2022-06-23] MEDS: MIRTAZAPINE 15 MG TABLET PO SCH (20:36)
[2022-06-23] MEDS: QUEtiapine FUMARATE 100 MG TABLET PO SCH (20:36)
[2022-06-23] MEDS: ACETAMINOPHEN 650 MG/20.3 ML UDC PO PRN (20:37)
[2022-06-24] MEDS: traMADol HCL HCL 50 MG TABLET (ULTRAM) PO PRN ×2 (05:25→12:13)
[2022-06-24] MEDS: SUCRALFATE 1 GM TABLET PO SCH ×2 (06:05→17:52)
--- NOTE | 2022-06-24 06:34 | NUR ---
PATIENT IN BED RESTING, EYES CLOSED, NO S/S OF PAIN OR DISTRESS NOTED AT THIS TIME. PATIENT VERBALIZED C/O PAIN X2, MEDICATION GIVEN AND EFFECTIVE. PATIENT VSS AND BS WNL. PATIENT G TUBE FEEDING JEVITY 1.5 ML/HR (GOAL) IS TOLERATED WELL WITH NO RESIDUAL. PATIENT WITH PUREED DIET WELL.
[2022-06-24] MEDS: BUDESONIDE 0.5 MG/2 ML AMPUL.NEB INH SCH ×2 (07:00→19:35)
--- NOTE | 2022-06-24 07:15 | NUR ---
rn opening note report was endorsed by night nurse. patient is awake and alert sitting up in bed no complaints at this time. call light is with her. educated to use call light for assistance. no other needs at this time.
[2022-06-24 08:00] VITALS: BP_SYST 116
[2022-06-24] MEDS: GABAPENTIN 400 MG CAPSULE PO SCH ×3 (08:29→21:00)
[2022-06-24] MEDS: METOPROLOL TARTRATE 50 MG TABLET PO SCH ×2 (08:29→21:00)
[2022-06-24] MEDS: QUEtiapine FUMARATE 100 MG TABLET PO SCH ×2 (08:29→21:00)
[2022-06-24] MEDS: amLODIPine BESYLATE 10 MG TABLET PO SCH (08:29)
[2022-06-24] MEDS: DOCUSATE SODIUM 100 MG CAPSULE PO SCH ×2 (08:29→21:00)
[2022-06-24] MEDS: LOSARTAN POTASSIUM 50 MG TABLET (COZAAR) PO SCH ×2 (08:30→21:00)
[2022-06-24] MEDS: NICOTINE 21 MG/24 HR PATCH.TD24 TD SCH (08:30)
[2022-06-24] MEDS: HEPARIN SODIUM,PORCINE 5,000 UNITS/ML VIAL SUBCUT SCH ×2 (08:32→22:49)
[2022-06-24] MEDS: DEUTETRABENAZINE PO SCH ×3 (08:34→21:00)
[2022-06-24] MEDS: IBUPROFEN 800 MG TABLET PO PRN (09:07)
--- NOTE | 2022-06-24 09:11 | NUR ---
medication Addendum: 06/24/22 at 1840 by Joaquina Davey RN patients scheduled medication given per order. tolerated well. patient educated concession stand attendant light for assistance. call light is with her. patient has no complaints at this time.
[2022-06-24 10:00] VITALS: BP_SYST 133
[2022-06-24 12:00] VITALS: BP_SYST 127
--- NOTE | 2022-06-24 12:26 | NUR ---
Accu check patient's is awake and alert complains of pain medicated per order. patient provided with lunch and apple juice and pudding. patient educated mrp controller light for assistance. call light is with her.
[2022-06-24] MEDS: MICAFUNGIN SODIUM 150 MG in NS 100 ML IV SCH (14:35)
[2022-06-24] MEDS: MAG-AL HYDROX/SIMETH 30 ML UDC PO PRN (14:53)
--- NOTE | 2022-06-24 14:58 | NUR ---
medication./ incontinence care/ g tube patients scheduled medication given per order. patient is awake and alert. patient is tolerated g tube with a 40ml residual. patient provided with incontinence care. patient educated communications department chair light for assistance. call light is with her. patient is requesting dago posadas md.
[2022-06-24 16:00] VITALS: BP_SYST 119
--- NOTE | 2022-06-24 17:04 | NUR ---
HIGH ALERT NOTE: Called Dr. DE JESUS back at PHONE identified within the medical roster to verify physician authenticity.ORDRES WERE RECIVED FOR PAIN MEDICATION.
[2022-06-24] MEDS: HYDROcodone/ACETAMIN 5-325 MG TAB (NORCO/ VICODIN) PO PRN (17:53)
--- NOTE | 2022-06-24 18:43 | NUR ---
rn closing note patient is sitting in bed eating dinner. no complaints at this time. call light is with her. no other needs a this time. educated to use call light for assistance.
[2022-06-24] MEDS: MIRTAZAPINE 15 MG TABLET PO SCH (21:00)
[2022-06-24] MEDS: DOXEPINE (SINEQUAN) 25 MG CAP PO SCH (21:00)
[2022-06-25] MEDS: HYDROcodone/ACETAMIN 5-325 MG TAB (NORCO/ VICODIN) PO PRN ×4 (00:11→21:24)
[2022-06-25 02:47] VITALS: BP_SYST 133
[2022-06-25] MEDS: BUDESONIDE 0.5 MG/2 ML AMPUL.NEB INH SCH ×2 (07:00→19:40)
--- NOTE | 2022-06-25 07:00 | NUR ---
Report received from night club manager RN for continuity of care. Patient stable.
[2022-06-25] MEDS: SUCRALFATE 1 GM TABLET PO SCH ×2 (07:15→13:48)
[2022-06-25 08:01] VITALS: BP_SYST 109
[2022-06-25] MEDS: QUEtiapine FUMARATE 100 MG TABLET PO SCH ×2 (08:21→21:10)
[2022-06-25] MEDS: GABAPENTIN 400 MG CAPSULE PO SCH ×3 (08:21→21:10)
[2022-06-25] MEDS: LOSARTAN POTASSIUM 50 MG TABLET (COZAAR) PO SCH ×2 (08:21→21:10)
[2022-06-25] MEDS: IBUPROFEN 800 MG TABLET PO PRN (08:22)
[2022-06-25] MEDS: amLODIPine BESYLATE 10 MG TABLET PO SCH (08:22)
[2022-06-25] MEDS: METOPROLOL TARTRATE 50 MG TABLET PO SCH ×2 (08:23→21:11)
[2022-06-25] MEDS: DOCUSATE SODIUM 100 MG CAPSULE PO SCH ×2 (08:23→21:11)
[2022-06-25] MEDS: DEUTETRABENAZINE PO SCH (08:24)
[2022-06-25] MEDS: HEPARIN SODIUM,PORCINE 5,000 UNITS/ML VIAL SUBCUT SCH ×2 (08:29→21:11)
[2022-06-25 08:35] LABS: ALBUMIN 1.9 g/dL (3.4-4.8); CALCIUM 10.4 mg/dL (8.4-11.0); CREATININE 0.77 mg/dL (0.55-1.30); TOTAL BILIRUBIN 0.3 mg/dL (0.0-1.0)
[2022-06-25 08:56] LABS: BASOPHILS % (AUTO) 0.9 % (0.0-2.0); EOSINOPHILS # (AUTO) 0.1 K/uL (0.0-0.4); EOSINOPHILS % (AUTO) 2.9 % (0.0-4.0); HEMATOCRIT 23.2 % (36-48); HEMOGLOBIN 7.9 g/dL (12.0-16.0); LYMPHOCYTES % (AUTO) 45.4 % (20.5-51.5); MEAN CORPUSCULAR HEMOGLOBIN 29 pg (27-31); MEAN CORPUSCULAR HGB CONC 34 % (32-36); MEAN CORPUSCULAR VOLUME 86 fL (79.0-98.0); MONOCYTES # (AUTO) 0.7 K/uL (0.0-1.0); MONOCYTES % (AUTO) 15.9 % (1.7-9.3); NEUTROPHILS # (AUTO) 1.5 K/uL (1.8-7.7); NEUTROPHILS % (AUTO) 34.9 % (40.0-70.0); PLATELET COUNT (AUTO) 382 K/uL (130-430); RED CELL DISTRIBUTION WIDTH 17.4 % (9.0-15.0)
[2022-06-25 09:56] LABS: WHITE BLOOD COUNT (AUTO) 4.4 K/uL (4.8-10.8)
[2022-06-25 12:00] VITALS: BP_SYST 124
[2022-06-25] MEDS: NICOTINE 21 MG/24 HR PATCH.TD24 TD SCH (12:01)
[2022-06-25] MEDS: MICAFUNGIN SODIUM 150 MG in NS 100 ML IV SCH (12:09)
--- NOTE | 2022-06-25 13:45 | NUR ---
Patient pulled midline out. Dr. Barker made aware. New orders noted and carried out.
[2022-06-25 16:00] VITALS: BP_SYST 132
--- NOTE | 2022-06-25 19:01 | NUR ---
Report given to medical dir RN for continuity of care. Patient stable.
[2022-06-25 20:00] VITALS: BP_SYST 111
[2022-06-25] MEDS: DOXEPINE (SINEQUAN) 25 MG CAP PO SCH (21:10)
[2022-06-25] MEDS: MIRTAZAPINE 15 MG TABLET PO SCH (21:11)
--- NOTE | 2022-06-26 04:00 | NUR ---
approximately at this time received report from angelina for transfer of care Addendum: 06/26/22 at 0511 by Jeramie Alcantara RN more precisely around [id number]
[2022-06-26] MEDS: HYDROcodone/ACETAMIN 5-325 MG TAB (NORCO/ VICODIN) PO PRN ×3 (05:51→21:38)
[2022-06-26] MEDS: SUCRALFATE 1 GM TABLET PO SCH ×2 (06:35→17:08)
[2022-06-26] MEDS: BUDESONIDE 0.5 MG/2 ML AMPUL.NEB INH SCH ×2 (07:00→19:35)
[2022-06-26 07:27] LABS: BASOPHILS % (AUTO) 0.8 % (0.0-2.0); EOSINOPHILS % (AUTO) 0.6 % (0.0-4.0); HEMATOCRIT 25.6 % (36-48); HEMOGLOBIN 8.6 g/dL (12.0-16.0); LYMPHOCYTES # (AUTO) 0.5 K/uL (1.0-5.5); LYMPHOCYTES % (AUTO) 11.9 % (20.5-51.5); MEAN CORPUSCULAR HEMOGLOBIN 29 pg (27-31); MEAN CORPUSCULAR HGB CONC 34 % (32-36); MEAN CORPUSCULAR VOLUME 88 fL (79.0-98.0); MONOCYTES # (AUTO) 0.5 K/uL (0.0-1.0); MONOCYTES % (AUTO) 12.6 % (1.7-9.3); NEUTROPHILS % (AUTO) 74.1 % (40.0-70.0); PLATELET COUNT (AUTO) 377 K/uL (130-430); RED BLOOD CELL COUNT(AUTO) 2.91 MIL/uL (4.2-6.2); RED CELL DISTRIBUTION WIDTH 17.1 % (9.0-15.0); WHITE BLOOD COUNT (AUTO) 4.1 K/uL (4.8-10.8)
--- NOTE | 2022-06-26 07:30 | NUR ---
CLOSING NOTES Patient resting in bed - no s/s pain or distress noted. Respirations even and unlabored - head of bed elevated. IV site patent - no s/s redness, infection, or infiltration. Bed locked and in lowest position. Call light within reach - bed alarm on. Addendum: 06/26/22 at 0740 by Jeramie Alcantara RN patient cleaned linens changed at 0600
[2022-06-26 07:34] VITALS: BP_SYST 111
[2022-06-26 08:00] VITALS: BP_SYST 112
[2022-06-26] MEDS: DEUTETRABENAZINE PO SCH ×2 (09:00→21:00)
[2022-06-26] MEDS: amLODIPine BESYLATE 10 MG TABLET PO SCH (10:38)
[2022-06-26] MEDS: FERROUS SULFATE 325 MG TABLET.DR PO SCH ×2 (10:38→21:36)
[2022-06-26] MEDS: DOCUSATE SODIUM 100 MG CAPSULE PO SCH ×2 (10:38→21:36)
[2022-06-26] MEDS: QUEtiapine FUMARATE 100 MG TABLET PO SCH ×2 (10:38→21:34)
[2022-06-26] MEDS: GABAPENTIN 400 MG CAPSULE PO SCH ×3 (10:38→21:34)
[2022-06-26] MEDS: METOPROLOL TARTRATE 50 MG TABLET PO SCH ×2 (10:39→21:36)
[2022-06-26] MEDS: NICOTINE 21 MG/24 HR PATCH.TD24 TD SCH (10:42)
[2022-06-26] MEDS: HEPARIN SODIUM,PORCINE 5,000 UNITS/ML VIAL SUBCUT SCH ×2 (10:44→21:39)
[2022-06-26] MEDS: LOSARTAN POTASSIUM 50 MG TABLET (COZAAR) PO SCH ×2 (10:49→21:35)
[2022-06-26 11:40] VITALS: BP_SYST 117
[2022-06-26] MEDS: MICAFUNGIN SODIUM 150 MG in NS 100 ML IV SCH (14:56)
[2022-06-26 15:40] VITALS: BP_SYST 122
[2022-06-26] MEDS: IBUPROFEN 800 MG TABLET PO PRN (17:13)
--- NOTE | 2022-06-26 18:35 | NUR ---
Miss Garcia has been assessed as indicated. She is presently resting quietly. She was successfully treated for pain x2 this shift. Midline is working well and the dressing is clean dry and intact. She repeatedly declines offer to assist her to sit in a chair with meals. abdominal incision remains open to air. She is resting quietly at this time with no s/s of distress or discomfort
--- NOTE | 2022-06-26 18:45 | NUR ---
Nutrition F/U Admitting Diagnosis: Complete Rectal Prolapse Medical Hx: Per EMR: 66 YOF who transferred from [facility] for evaluation/ treatment of rectal prolapse. Visual NFPE completed d/t patient falling asleep during interview plus seen with blankets covering the bottom half of her body: Moderate - Severe fat loss: orbitals and triceps; Moderate - Severe muscle wasting: temples, clavicles, and shoulders. PMHx: long history of psychological disorder, chronic smoker, COPD, anemia. Sx Hx: tummy tuck, silicone breast implants. Hospital course updates: S/p code stroke on 06/08/22. S/p swallow eval 06/10/22: ST recommends puree NTL, however alt means of nutrition necessary if pt continues to refuse foods. Per Dr Barker on 06/10/22: patient choked on food when he tried to feed her, recs GT. Pt is s/p PEG placement 06/13; seen by ST again 06/15, ST rec for puree/NTL for oral grat and 1:1 feeder/full aspiration precautions. Pt is s/p GT replacement 06/21. Per MD notes 06/26: recent onset pancytopenia, likely bone marrow suppression, by fungemia & possible drug-induced bone marrow suppression. TST =6% suggests iron deficiency, pt on iron supp; anemia of chronic dz & iron deficiency w/B12 normal. Subjective Information: RD reviewed pt's current EMR including diet Hx, physician notes, nursing notes, pertinent labs/meds/procedures, care trends, and care activity. RD rounded to patient room and spoke with patient at bedside. Pt reports feeling slightly better and her appetite is somewhat improved. Pt endorses enjoying the puddings, yogurts, and shakes she receives throughout the day but stated the ground beef and potatoes are not appetizing to her, so she does not eat them. Per EMR review, pt consuming 58% x 12 meals, with PO average intake 50-100% for most breakfast/lunch meals and 25% x 4 previous dinner meals. PO intake = ~2045 kcals/day and 102g protein/day. RD witnessed Jevity 1.5 infusing @ 20mL/hr goal rate. Patient tolerating TF with 0mL GRV documented in chart. Pt denies N/V/C/D and stated her LBM was soft/normal. LBM documented 06/26 x 1. Diet advanced to mechanical soft from puree NTL, per . Ht: 5'8" Wt: 126#/57.3 kg (05/16) IBW: 140#/63.6 kg UBW: 150# (1 year ago) per pt CBW: 127# per bedscale wt taken by RD 06/03 Current Diet Order/Nutrition Support: Mechanical Soft x 0 days & Jevity 1.5 at 20 ml/hr, Free Water Flush: 150 mL via GT x 5 days Medications: Heparin, Lopressor, Colace, FeSO4 Labs: Drawn 06/25 Worsening Na 128 L, BUN 24 H, Alb 1.9 L Improving BG 130 H, POC BG 128 H (06/26), Hgb 8.6 L, Hct 25.6 L Weight Status: Underweight (BMI <21 for 65+) GI symptoms: None, per EMR/patient 06/26 Last BM: x1 documented 06/26 Skin Integrity Comment: Venancio 17: abdominal incision; right arm/buttocks erythema 06/26 No edema noted per EMR 06/26 Current % PO Fair 58% x 12 meals Estimated Energy Expenditure (kcals/day) 1175-4591 (25-30 kcal/kg IBW d/t GERIAT, BMI <21, Sx healing) Estimated Protein Required (g/day) 64-96 (1-1.5 g/kg IBW d/t GERIAT, BMI <21, Sx healing) Estimated Fluid Required (l/day) 1.6-1.9 (1mL/kcal for maintenance) Problem/Etiology/Signs/Symptoms *MODIFIED* * Severe unintentional weight loss r/t suspected long-term inadequate oral intake a/e/b patient endorses 24lb and 16% weight loss x 6 months (Ongoing) * Inadequate oral intake r/t clear liquid diet order a/e/b CLD provides 1531 kcal/day and 50g pro/day (Resolved) * Swallowing difficulty r/t dysphagia a/e/b ST evaluation, patient choking on foods, diet order (Ongoing) Expected Outcomes/Goals - PO intake provides >85% estimated nutrient needs, slow wt gain w/in 1-2lbs per wk, skin integrity, nutrition-related labs trending WNL, improvements in bowel function, BM q1-3 days Dietitian Recommendations * Continue Mechanical soft diet, as tolerated * Jevity1.5 at 20 ml/hr x 24h, Free Water Flush: 150 ml Q4h via GT Provides daily: 720 kcals, 30 gm protein, 1565 mL (365mL EN only) free water Meets: 45% upper estimated kcal needs, 47% upper estimated PRO needs, 98% of upper estimated fluid needs * Ensure High Protein BID (ONS provides 320 kcals and 32g protein) * Recommend Vitamin C supplementation for increased Fe absorption Moderate Risk: F/U 3-5 days F/U date: June 29 July 01
--- NOTE | 2022-06-26 18:49 | NUR ---
Dietitian Recommendations * Continue Mechanical soft diet, as tolerated * Jevity 1.5 @ 20 ml/hr (goal rate) x 24hr, Free Water Flush: 150 ml Q4h via GT Provides daily: 720 kcals, 30 gm protein, 1565 mL (365mL EN only) free water Meets: 45% upper estimated kcal needs, 47% upper estimated PRO needs, 98% of upper estimated fluid needs * Ensure High Protein BID (Provides 320 kcals, 32g protein) * Recommend Vitamin C supplementation for increased Fe absorption Please refer to nutrition F/U for details, thanks! CC, MPH, RDN
--- NOTE | 2022-06-26 19:00 | NUR ---
Handoff has been given to Mariam
[2022-06-26 20:00] VITALS: BP_SYST 119
[2022-06-26] MEDS: DOXEPINE (SINEQUAN) 25 MG CAP PO SCH (21:32)
[2022-06-26] MEDS: MIRTAZAPINE 15 MG TABLET PO SCH (21:37)
[2022-06-27 06:00] VITALS: BP_SYST 109
[2022-06-27] MEDS: SUCRALFATE 1 GM TABLET PO SCH ×2 (06:00→16:50)
[2022-06-27] MEDS: HYDROcodone/ACETAMIN 5-325 MG TAB (NORCO/ VICODIN) PO PRN ×3 (06:02→17:46)
[2022-06-27] MEDS: BUDESONIDE 0.5 MG/2 ML AMPUL.NEB INH SCH ×2 (07:00→19:00)
--- NOTE | 2022-06-27 07:40 | NUR ---
OPENING NOTE PT IN BED, SLEEPING WITH REGULAR, EVEN, AND NON-LABORED BREATHING. G-TUBE FEEDING RUNNING ORDERED. ABDOMINAL BINDER NOTED. IV MIDLINE REMAIN PATENT AND INTACT. NO S/S OF INFILTRATION OR INFECTION NOTED. ENCOURAGED TO USE CALL LIGHT FOR ASSISTANCE. SAFETY PRECAUTION IN PLACED. WILL CONTINUE TO MONITOR.
[2022-06-27 08:00] VITALS: BP_SYST 105
[2022-06-27] MEDS: GABAPENTIN 400 MG CAPSULE PO SCH ×3 (08:27→20:19)
[2022-06-27] MEDS: QUEtiapine FUMARATE 100 MG TABLET PO SCH ×2 (08:27→20:19)
[2022-06-27] MEDS: FERROUS SULFATE 325 MG TABLET.DR PO SCH ×2 (08:27→20:20)
[2022-06-27] MEDS: NICOTINE 21 MG/24 HR PATCH.TD24 TD SCH (08:27)
[2022-06-27] MEDS: DOCUSATE SODIUM 100 MG CAPSULE PO SCH ×2 (08:27→20:22)
--- NOTE | 2022-06-27 08:30 | NUR ---
ROUND AT BEDSIDE, ASSESSING PT.
[2022-06-27] MEDS: HEPARIN SODIUM,PORCINE 5,000 UNITS/ML VIAL SUBCUT SCH ×2 (08:38→20:22)
[2022-06-27] MEDS: amLODIPine BESYLATE 10 MG TABLET PO SCH (09:00)
[2022-06-27] MEDS: DEUTETRABENAZINE PO SCH ×2 (09:00→20:24)
[2022-06-27] MEDS: METOPROLOL TARTRATE 50 MG TABLET PO SCH ×2 (09:00→20:21)
[2022-06-27] MEDS: LOSARTAN POTASSIUM 50 MG TABLET (COZAAR) PO SCH ×2 (09:00→20:21)
[2022-06-27] MEDS: IBUPROFEN 800 MG TABLET PO PRN (11:39)
--- NOTE | 2022-06-27 11:45 | NUR ---
Discharge Planning: DCP faxed pt referral to [facility], [facility], [place], [facility], [facility]. DCP to follow up. Addendum: 06/27/22 at 1613 by Cielo Hartman DP [facility]-reviewing and reaching out to [facility] to inquire financial payout with [facility]-no ISO beds, [place]-No ISO beds, [facility]-pending response from facility, [facility]- pending response from facility.
[2022-06-27 12:24] VITALS: BP_SYST 98
[2022-06-27] MEDS: MICAFUNGIN SODIUM 150 MG in NS 100 ML IV SCH (13:18)
--- NOTE | 2022-06-27 13:38 | NUR ---
ROUND AT BEDSIDE, ASSESSING PT.
--- NOTE | 2022-06-27 15:00 | NUR ---
SKIN CARE PROVIDED HECTOR CARE, SKIN CARE, AND HAIR CARE. PT WELL TOLERATED.
--- NOTE | 2022-06-27 16:00 | NUR ---
PHARMACY PT'S OWN MEDICATION (AUSTEDO) NOT AVAILABLE. PT REQUEST MEDICATION TO CONTINUE. CALLED PHARMACY AND TOLD THAT PT NEEDS TO MAKE A PHONE CALL TO THE PHARMACY AND REQUEST FOR REFILL. THEN, SOMEBODY NEEDS TO PICK IT UP FOR PT AND BRING IT TO THIS HOSPITAL. PROVIDED RX NUMBER AND PHARMACY NUMBER TO PT. PT VERBALIZES UNDERSTANDING.
[2022-06-27 18:36] VITALS: BP_SYST 101
--- NOTE | 2022-06-27 19:10 | NUR ---
CLOSING NOTE PT IN BED, EATING DINNER. NO S/S OF PAIN/DISCOMFORT, OR SHORTNESS OF BREATH. IV REMAIN PATIENT AND INTACT. NO S/S OF INFECTION OR INFILTRATION NOTED. G-TUBE FEEDING RUNNING ORDERED. ELEVATED HOB. ABDOMINAL BINDER ON. FALL PRECAUTION AND ASPIRATION PRECAUTION IN PLACED. ENDORSED CARE TO DIRECTOR OF IN SERVICE EDUCATION NURSE.
[2022-06-27 20:00] VITALS: BP_SYST 118
[2022-06-27] MEDS: MIRTAZAPINE 15 MG TABLET PO SCH (20:20)
[2022-06-27] MEDS: DOXEPINE (SINEQUAN) 25 MG CAP PO SCH (20:22)
[2022-06-27] MEDS: ASCORBIC ACID 500 MG TABLET PO SCH (20:22)
--- NOTE | 2022-06-27 23:07 | NUR ---
Patient in bed. No acute distress noted. HOB elevated. Gtube patent and intact. No residual noted. Turned repositioned q2. Will continue to monitor.
[2022-06-28] MEDS: SUCRALFATE 1 GM TABLET PO SCH ×2 (03:40→17:00)
[2022-06-28] MEDS: ACETAMINOPHEN 650 MG/20.3 ML UDC PO PRN (03:40)
[2022-06-28 04:00] VITALS: BP_SYST 135
--- NOTE | 2022-06-28 04:36 | NUR ---
Tylenol given for temp 100.4.
[2022-06-28] MEDS: HYDROcodone/ACETAMIN 5-325 MG TAB (NORCO/ VICODIN) PO PRN ×2 (05:03→17:00)
[2022-06-28] MEDS: BUDESONIDE 0.5 MG/2 ML AMPUL.NEB INH SCH ×2 (07:00→19:00)
[2022-06-28] MEDS: DEUTETRABENAZINE PO SCH ×2 (09:00→21:27)
[2022-06-28] MEDS: DOCUSATE SODIUM 100 MG CAPSULE PO SCH ×2 (09:00→21:25)
[2022-06-28] MEDS: GABAPENTIN 400 MG CAPSULE PO SCH ×3 (10:43→21:24)
[2022-06-28] MEDS: QUEtiapine FUMARATE 100 MG TABLET PO SCH ×2 (10:44→21:23)
[2022-06-28] MEDS: FERROUS SULFATE 325 MG TABLET.DR PO SCH ×2 (10:44→21:22)
[2022-06-28] MEDS: LOSARTAN POTASSIUM 50 MG TABLET (COZAAR) PO SCH ×2 (10:44→21:23)
[2022-06-28] MEDS: ASCORBIC ACID 500 MG TABLET PO SCH ×2 (10:44→21:23)
[2022-06-28] MEDS: amLODIPine BESYLATE 10 MG TABLET PO SCH (10:45)
[2022-06-28] MEDS: METOPROLOL TARTRATE 50 MG TABLET PO SCH ×2 (10:45→21:25)
[2022-06-28] MEDS: NICOTINE 21 MG/24 HR PATCH.TD24 TD SCH (10:46)
[2022-06-28] MEDS: HEPARIN SODIUM,PORCINE 5,000 UNITS/ML VIAL SUBCUT SCH ×2 (12:12→21:24)
[2022-06-28 12:40] VITALS: BP_SYST 126
[2022-06-28] MEDS: ONDANSETRON HCL 4 MG/2 ML VIAL IVP PRN (14:30)
[2022-06-28] MEDS: MICAFUNGIN SODIUM 150 MG in NS 100 ML IV SCH (14:32)
[2022-06-28 16:00] VITALS: BP_SYST 130
--- NOTE | 2022-06-28 18:00 | NUR ---
surgical retention suters and kori have been removed. TF has been well tolerated. She has been successfully treated for pain x1 this shift. She was also treated for c/o nausea. She continues to decline offers to get OOB. for meals. She continues to have poor PO intake with mechanical soft meal trays. She is resting quietly at this time
--- NOTE | 2022-06-28 19:30 | NUR ---
Handoff has been given Skip
[2022-06-28 20:00] VITALS: BP_SYST 118
[2022-06-28] MEDS: DOXEPINE (SINEQUAN) 25 MG CAP PO SCH (21:23)
[2022-06-28] MEDS: MIRTAZAPINE 15 MG TABLET PO SCH (21:27)
[2022-06-29] VITALS: BP_SYST 112
[2022-06-29 04:00] VITALS: BP_SYST 115
[2022-06-29] MEDS: SUCRALFATE 1 GM TABLET PO SCH ×2 (06:10→16:17)
[2022-06-29] MEDS: HYDROcodone/ACETAMIN 5-325 MG TAB (NORCO/ VICODIN) PO PRN ×4 (06:11→22:23)
[2022-06-29 06:28] LABS: HEMATOCRIT 22.3 % (36-48); HEMOGLOBIN 7.6 g/dL (12.0-16.0); MEAN CORPUSCULAR HEMOGLOBIN 29 pg (27-31); MEAN CORPUSCULAR HGB CONC 34 % (32-36); MEAN CORPUSCULAR VOLUME 85 fL (79.0-98.0); PLATELET COUNT (AUTO) 340 K/uL (130-430); RED BLOOD CELL COUNT(AUTO) 2.63 MIL/uL (4.2-6.2); RED CELL DISTRIBUTION WIDTH 17.1 % (9.0-15.0); WHITE BLOOD COUNT (AUTO) 3.5 K/uL (4.8-10.8)
[2022-06-29] MEDS: BUDESONIDE 0.5 MG/2 ML AMPUL.NEB INH SCH ×2 (07:00→19:00)
--- NOTE | 2022-06-29 07:00 | NUR ---
PHYSICAL THERAPY CO-SIGN The Physical Therapy Progress Notes documented by Automated Teller Manager have been reviewed. Reviewed/Co-Signed by: Tj Walton Documentation Done by: NASIM PINEDA PTA Addendum: 06/29/22 at 0701 by Tj Walton PT Amended: Links added.
--- NOTE | 2022-06-29 07:00 | NUR ---
PHYSICAL THERAPY CO-SIGN The Physical Therapy Progress Notes documented by Manager Ship have been reviewed. Reviewed/Co-Signed by: Tj Walton Documentation Done by: NASIM PINEDA PTA Addendum: 06/29/22 at 0701 by Tj Walton PT Amended: Links added.
[2022-06-29 07:14] LABS: C-REACTIVE PROTEIN QUANT 2.7 mg/dL (0-0.5); CALCIUM 9.8 mg/dL (8.4-11.0); CREATININE 0.83 mg/dL (0.55-1.30)
[2022-06-29 07:50] VITALS: BP_SYST 109
--- NOTE | 2022-06-29 07:50 | NUR ---
OPENING NOTE Patient resting in bed. A/Ox 2-3 Lao speaking. No pain, no SOB, no distress noted at this time. Patient on GTUBE Jevity 1.5 at 40cc/hr but also eats mech soft. IV to MIDLINE to left upper arm patent and on infusion pump. All needs met at this time, bed is locked in lowest position, will continue to monitor.
[2022-06-29 08:13] LABS: TOTAL BILIRUBIN 0.2 mg/dL (0.0-1.0)
[2022-06-29 08:58] LABS: ERYTHROCYTE SEDIMENTATION RATE 114 MM/HR (0-20)
[2022-06-29] MEDS: DOCUSATE SODIUM 100 MG CAPSULE PO SCH ×2 (09:37→20:55)
[2022-06-29] MEDS: FERROUS SULFATE 325 MG TABLET.DR PO SCH ×2 (09:37→20:55)
[2022-06-29] MEDS: LOSARTAN POTASSIUM 50 MG TABLET (COZAAR) PO SCH ×2 (09:38→21:06)
[2022-06-29] MEDS: METOPROLOL TARTRATE 50 MG TABLET PO SCH ×2 (09:38→21:08)
[2022-06-29] MEDS: GABAPENTIN 400 MG CAPSULE PO SCH ×3 (09:38→20:55)
[2022-06-29] MEDS: ASCORBIC ACID 500 MG TABLET PO SCH ×2 (09:38→20:55)
[2022-06-29] MEDS: NICOTINE 21 MG/24 HR PATCH.TD24 TD SCH (09:39)
[2022-06-29] MEDS: QUEtiapine FUMARATE 100 MG TABLET PO SCH ×2 (09:39→21:07)
[2022-06-29] MEDS: DEUTETRABENAZINE PO SCH ×2 (09:39→21:00)
[2022-06-29] MEDS: amLODIPine BESYLATE 10 MG TABLET PO SCH (09:39)
[2022-06-29] MEDS: HEPARIN SODIUM,PORCINE 5,000 UNITS/ML VIAL SUBCUT SCH ×2 (09:42→21:14)
--- NOTE | 2022-06-29 11:46 | NUR ---
Discharge Planning: DCP faxed pt referral to [facility] [phone], [facility] [phone] DCP to follow up. Addendum: 06/29/22 at 1606 by Cielo Hartman DP [facility] [phone] per Justina patient accepted clinically pending auth and letter of agreement DCP called and faxed [facility] P#[phone] P#[phone] making her aware pt is accepted at [facility]. [facility] [phone] asked to come see pt.
[2022-06-29 12:07] LABS: ATYPICAL LYMPHOCYTES % 6 % (0-0); BASOPHILS % (MANUAL) 0 % (0-2); EOSINOPHILS % (MANUAL) 1 % (0-7); LYMPHOCYTES % (MANUAL) 25 % (20-46); MONOCYTES % (MANUAL) 16 % (0-11)
[2022-06-29] MEDS: INSULIN REGULAR, HUMAN 100 UNITS/ML, 3 ML VIAL (humuLIN R) SUBCUT PRN ×2 (12:18→22:42)
[2022-06-29 12:20] VITALS: BP_SYST 110
--- NOTE | 2022-06-29 12:20 | NUR ---
PATIENT ROUNDS Patient resting in bed. No pain, no SOB, no distress noted at this time. Patient on GTUBE Jevity 1.5 at 40cc/hr but also eats mech soft. IV to MIDLINE to left upper arm patent and on infusion pump. All needs met at this time, bed is locked in lowest position, will continue to monitor.
[2022-06-29] MEDS ORDERED: MUPIROCIN 2% TOPICAL OINTMENT 22 GM NS ONE (13:30)
[2022-06-29] MEDS: MUPIROCIN 2% TOPICAL OINTMENT 22 GM NS SCH ×2 (13:30→21:08)
--- NOTE | 2022-06-29 13:50 | NUR ---
Patient refused Physical Therapy treatment. Plan: attempt tomorrow.
[2022-06-29] MEDS: MICAFUNGIN SODIUM 150 MG in NS 100 ML IV SCH (13:51)
[2022-06-29] MEDS: IBUPROFEN 800 MG TABLET PO PRN ×2 (13:51→20:55)
[2022-06-29] MEDS: ONDANSETRON HCL 4 MG/2 ML VIAL IVP PRN (15:12)
[2022-06-29 16:12] VITALS: BP_SYST 112
[2022-06-29] MEDS: MAG-AL HYDROX/SIMETH 30 ML UDC PO PRN (16:47)
[2022-06-29] MEDS: ACETAMINOPHEN 650 MG/20.3 ML UDC PO PRN (16:47)
--- NOTE | 2022-06-29 18:53 | NUR ---
CLOSING NOTE Patient resting in bed. A/Ox 2-3 Syriac speaking. No pain, no SOB, no distress noted at this time. Patient on GTUBE Jevity 1.5 at 40cc/hr but also eats mech soft. IV to MIDLINE to left upper arm patent and on infusion pump. All needs met at this time, bed is locked in lowest position, will endorse to nightshift nurse.
[2022-06-29] MEDS ORDERED: MUPIROCIN 2% TOPICAL OINTMENT 22 GM NS SCH (21:00)
[2022-06-29] MEDS: MIRTAZAPINE 15 MG TABLET PO SCH (21:09)
[2022-06-29] MEDS: DOXEPINE (SINEQUAN) 25 MG CAP PO SCH (21:10)
[2022-06-30 01:03] VITALS: BP_SYST 101
[2022-06-30] MEDS: SUCRALFATE 1 GM TABLET PO SCH ×2 (06:55→17:00)
--- NOTE | 2022-06-30 06:56 | NUR ---
PATIENT REFUSED LAB WORK THIS MORNING , SHE SAID THAT SHE WANTED TO SLEEP AND LABS SHOULD BE DRAWN LATER
[2022-06-30] MEDS: BUDESONIDE 0.5 MG/2 ML AMPUL.NEB INH SCH ×2 (07:00→19:00)
[2022-06-30 08:07] LABS: BASOPHILS % (AUTO) 0.7 % (0.0-2.0); EOSINOPHILS # (AUTO) 0.1 K/uL (0.0-0.4); EOSINOPHILS % (AUTO) 1.1 % (0.0-4.0); HEMATOCRIT 23.9 % (36-48); HEMOGLOBIN 7.9 g/dL (12.0-16.0); LYMPHOCYTES # (AUTO) 1.1 K/uL (1.0-5.5); MEAN CORPUSCULAR HEMOGLOBIN 28 pg (27-31); MEAN CORPUSCULAR HGB CONC 33 % (32-36); MEAN CORPUSCULAR VOLUME 85 fL (79.0-98.0); MONOCYTES # (AUTO) 0.9 K/uL (0.0-1.0); MONOCYTES % (AUTO) 17.5 % (1.7-9.3); NEUTROPHILS # (AUTO) 2.9 K/uL (1.8-7.7); NEUTROPHILS % (AUTO) 58.7 % (40.0-70.0); PLATELET COUNT (AUTO) 319 K/uL (130-430); RED BLOOD CELL COUNT(AUTO) 2.82 MIL/uL (4.2-6.2)
[2022-06-30] MEDS: DEUTETRABENAZINE PO SCH ×2 (09:00→22:02)
[2022-06-30] MEDS: METOPROLOL TARTRATE 50 MG TABLET PO SCH ×2 (09:00→21:53)
[2022-06-30] MEDS: FERROUS SULFATE 325 MG TABLET.DR PO SCH ×2 (09:03→21:54)
[2022-06-30] MEDS: DOCUSATE SODIUM 100 MG CAPSULE PO SCH ×2 (09:04→21:50)
[2022-06-30] MEDS: GABAPENTIN 400 MG CAPSULE PO SCH ×3 (09:04→21:50)
[2022-06-30] MEDS: ASCORBIC ACID 500 MG TABLET PO SCH ×2 (09:04→21:53)
[2022-06-30] MEDS: LOSARTAN POTASSIUM 50 MG TABLET (COZAAR) PO SCH ×2 (09:05→21:54)
[2022-06-30] MEDS: amLODIPine BESYLATE 10 MG TABLET PO SCH (09:05)
[2022-06-30] MEDS: NICOTINE 21 MG/24 HR PATCH.TD24 TD SCH (09:06)
[2022-06-30] MEDS: MUPIROCIN 2% TOPICAL OINTMENT 22 GM NS SCH ×2 (09:06→22:01)
[2022-06-30] MEDS: HEPARIN SODIUM,PORCINE 5,000 UNITS/ML VIAL SUBCUT SCH ×2 (09:11→22:06)
[2022-06-30] MEDS: QUEtiapine FUMARATE 100 MG TABLET PO SCH ×2 (09:16→22:02)
[2022-06-30 11:41] VITALS: BP_SYST 108
--- NOTE | 2022-06-30 13:03 | NUR ---
ATTENDING MD DR DE JESUS WAS CALLED, RE: BP IS 71/52.
--- NOTE | 2022-06-30 13:05 | NUR ---
T IS VOMITING YELLOWISH FLUID. PT IS SITTING UP @60 DEGREES. FEEDING TURNED OFF. pt IS COUGHING A LOT. cOMPLAINING THAT SHE FEELS HOT. TEMPERATURE IS 99.2F. NURSE CHECKED RESIDUAL (15ML) AND ADMINISTERED LIQUID TYLENOL THROUGH THE GTUBE. PAGED. WILL CONTINUE TO MONITOR
[2022-06-30] MEDS: HYDROcodone/ACETAMIN 5-325 MG TAB (NORCO/ VICODIN) PO PRN ×2 (13:09→22:11)
[2022-06-30] MEDS: ACETAMINOPHEN 650 MG/20.3 ML UDC PO PRN (13:10)
--- NOTE | 2022-06-30 13:25 | NUR ---
NEW ORDERS FROM . STAT CHEST X-RAY. FEEDING IS STILL ON HOLD. BP PRESSURE IS NOW 90/65. TEMP IS 98.8. PT STATES THAT SHE DOESN'T FEEL THE CHILLS ANYMORE. VITALS SIGNS ARE STABLE AT THIS TIME. WILL CONTINUE TO MONITOR
[2022-06-30] MEDS: D5NS 1,000 ML IV SCH (14:22)
[2022-06-30] MEDS: MICAFUNGIN SODIUM 150 MG in NS 100 ML IV SCH (14:22)
--- NOTE | 2022-06-30 14:40 | NUR ---
Authorization Request: s/w Gerardo Gallegos auth/UR department , call ref. # [id number] tel # [phone]. CM initiated auth request for [facility] and provided the rehab's NPI number and the Diagnosis code per medical record. Per Rosy, the case is sent to an assigned review nurse who will be calling back with the approval decision. I requested to expedite the process so that the pt can transfer to snf today. I asked for additional in [facility] snf and list for future use in case the transfer to [facility] did not go through. >> snf: [facility] tel # [phone], [facility] tel # [phone], [facility] tel # [phone] >> Home Health: [facility] [phone], [facility] tel # [phone] [facility] tel # [phone].
[2022-06-30 16:51] VITALS: BP_SYST 108
--- NOTE | 2022-06-30 17:35 | NUR ---
NEW ORDERS FROM THE DOCTORS. HOLD FEEDING TILL THE MORNING.CHANGE DIET TO FULL LIQUID. PT IS STABLE AT THIS TIME. WILL CONTINUE TO MONITOR
[2022-06-30 20:00] VITALS: BP_SYST 149
[2022-06-30] MEDS: MIRTAZAPINE 15 MG TABLET PO SCH (22:01)
[2022-06-30] MEDS: DOXEPINE (SINEQUAN) 25 MG CAP PO SCH (22:02)
[2022-06-30] MEDS: IBUPROFEN 800 MG TABLET PO PRN ×2 (22:10→22:11)
[2022-07-01] MEDS: D5NS 1,000 ML IV SCH ×3 (00:15→21:48)
[2022-07-01 00:36] VITALS: BP_SYST 149
[2022-07-01] MEDS: HYDROcodone/ACETAMIN 5-325 MG TAB (NORCO/ VICODIN) PO PRN ×5 (06:13→21:50)
[2022-07-01] MEDS: SUCRALFATE 1 GM TABLET PO SCH ×2 (06:19→18:15)
[2022-07-01] MEDS: BUDESONIDE 0.5 MG/2 ML AMPUL.NEB INH SCH (07:00)
[2022-07-01 07:22] LABS: BASOPHILS % (AUTO) 0.7 % (0.0-2.0); EOSINOPHILS % (AUTO) 0.7 % (0.0-4.0); HEMOGLOBIN 7.1 g/dL (12.0-16.0); LYMPHOCYTES % (AUTO) 30.3 % (20.5-51.5); MEAN CORPUSCULAR HEMOGLOBIN 28 pg (27-31); MEAN CORPUSCULAR HGB CONC 34 % (32-36); MEAN CORPUSCULAR VOLUME 83 fL (79.0-98.0); MONOCYTES # (AUTO) 1.1 K/uL (0.0-1.0); MONOCYTES % (AUTO) 17.2 % (1.7-9.3); NEUTROPHILS # (AUTO) 3.3 K/uL (1.8-7.7); PLATELET COUNT (AUTO) 328 K/uL (130-430); RED BLOOD CELL COUNT(AUTO) 2.51 MIL/uL (4.2-6.2); RED CELL DISTRIBUTION WIDTH 17.1 % (9.0-15.0); WHITE BLOOD COUNT (AUTO) 6.5 K/uL (4.8-10.8)
[2022-07-01 07:37] LABS: CALCIUM 9.9 mg/dL (8.4-11.0); CREATININE 0.8 mg/dL (0.55-1.30)
[2022-07-01 08:00] VITALS: BP_SYST 90
[2022-07-01 08:19] LABS: HEMATOCRIT 20.9 % (36-48)
[2022-07-01 08:20] LABS: NEUTROPHILS % (AUTO) 51.1 % (40.0-70.0)
[2022-07-01] MEDS: MUPIROCIN 2% TOPICAL OINTMENT 22 GM NS SCH ×2 (09:00→21:50)
[2022-07-01] MEDS: DOCUSATE SODIUM 100 MG CAPSULE PO SCH ×2 (09:00→21:46)
[2022-07-01] MEDS: amLODIPine BESYLATE 10 MG TABLET PO SCH (09:00)
[2022-07-01] MEDS: DEUTETRABENAZINE PO SCH ×2 (09:00→21:51)
[2022-07-01] MEDS: METOPROLOL TARTRATE 50 MG TABLET PO SCH ×2 (09:00→22:39)
[2022-07-01] MEDS: LOSARTAN POTASSIUM 50 MG TABLET (COZAAR) PO SCH ×2 (09:00→22:40)
[2022-07-01] MEDS: ASCORBIC ACID 500 MG TABLET PO SCH ×2 (09:28→21:46)
[2022-07-01] MEDS: NICOTINE 21 MG/24 HR PATCH.TD24 TD SCH (09:28)
[2022-07-01] MEDS: QUEtiapine FUMARATE 100 MG TABLET PO SCH ×2 (09:28→21:46)
[2022-07-01] MEDS: FERROUS SULFATE 325 MG TABLET.DR PO SCH ×2 (09:29→21:46)
[2022-07-01] MEDS: GABAPENTIN 400 MG CAPSULE PO SCH ×3 (09:29→22:39)
[2022-07-01] MEDS: HEPARIN SODIUM,PORCINE 5,000 UNITS/ML VIAL SUBCUT SCH (09:31)
[2022-07-01] MEDS: IBUPROFEN 800 MG TABLET PO PRN ×2 (09:34→21:46)
[2022-07-01] MEDS: MICAFUNGIN SODIUM 150 MG in NS 100 ML IV SCH (14:00)
[2022-07-01 14:02] VITALS: BP_SYST 105
[2022-07-01 17:49] VITALS: BP_SYST 119
[2022-07-01 20:00] VITALS: BP_SYST 123
[2022-07-01] MEDS: DOXEPINE (SINEQUAN) 25 MG CAP PO SCH (21:45)
[2022-07-01] MEDS: MIRTAZAPINE 15 MG TABLET PO SCH (21:45)
[2022-07-02] VITALS (8 sets, daily range): BP systolic 104–131
[2022-07-02] MEDS: HYDROcodone/ACETAMIN 5-325 MG TAB (NORCO/ VICODIN) PO PRN ×5 (02:50→23:41)
--- NOTE | 2022-07-02 02:52 | NUR ---
PATIENT PULLED OUT HER MARGARET PICC LINE. DRESSING APPLIED TO SITE, NO SIGN/SYMPTOMS OF COMPLICATION NOTED
[2022-07-02] MEDS: SUCRALFATE 1 GM TABLET PO SCH ×2 (06:35→16:01)
[2022-07-02] MEDS: BUDESONIDE 0.5 MG/2 ML AMPUL.NEB INH SCH (07:00)
--- NOTE | 2022-07-02 07:00 | NUR ---
PIV, RESTARTED TO LEFT AC, PATIENT TOLERATEDPROCEDURE WELL
[2022-07-02] MEDS: D5NS 1,000 ML IV SCH ×2 (07:05→16:02)
[2022-07-02] MEDS: DEUTETRABENAZINE PO SCH ×2 (09:00→21:00)
[2022-07-02] MEDS: METOPROLOL TARTRATE 50 MG TABLET PO SCH ×2 (09:51→20:16)
[2022-07-02] MEDS: ASCORBIC ACID 500 MG TABLET PO SCH ×2 (09:52→20:16)
[2022-07-02] MEDS: FERROUS SULFATE 325 MG TABLET.DR PO SCH ×2 (09:52→20:16)
[2022-07-02] MEDS: GABAPENTIN 400 MG CAPSULE PO SCH ×3 (09:52→20:16)
[2022-07-02] MEDS: DOCUSATE SODIUM 100 MG CAPSULE PO SCH ×2 (09:52→20:17)
[2022-07-02] MEDS: NICOTINE 21 MG/24 HR PATCH.TD24 TD SCH (09:53)
[2022-07-02] MEDS: LOSARTAN POTASSIUM 50 MG TABLET (COZAAR) PO SCH ×2 (09:53→20:16)
[2022-07-02] MEDS: amLODIPine BESYLATE 10 MG TABLET PO SCH (09:53)
[2022-07-02] MEDS: QUEtiapine FUMARATE 100 MG TABLET PO SCH ×2 (09:53→20:15)
[2022-07-02] MEDS: MUPIROCIN 2% TOPICAL OINTMENT 22 GM NS SCH ×2 (09:59→20:17)
[2022-07-02] MEDS: IBUPROFEN 800 MG TABLET PO PRN (12:57)
[2022-07-02] MEDS: MICAFUNGIN SODIUM 150 MG in NS 100 ML IV SCH (13:00)
[2022-07-02] MEDS: MIRTAZAPINE 15 MG TABLET PO SCH (20:17)
[2022-07-02] MEDS: DOXEPINE (SINEQUAN) 25 MG CAP PO SCH (20:20)
[2022-07-03 00:24] VITALS: BP_SYST 137
[2022-07-03] MEDS: D5NS 1,000 ML IV SCH ×3 (02:15→21:14)
[2022-07-03] MEDS: HYDROcodone/ACETAMIN 5-325 MG TAB (NORCO/ VICODIN) PO PRN ×4 (05:04→23:42)
[2022-07-03 07:00] LABS: EOSINOPHILS # (AUTO) 0.2 K/uL (0.0-0.4); EOSINOPHILS % (AUTO) 3.9 % (0.0-4.0); HEMATOCRIT 22.3 % (36-48); HEMOGLOBIN 7.3 g/dL (12.0-16.0); LYMPHOCYTES # (AUTO) 1.8 K/uL (1.0-5.5); MEAN CORPUSCULAR HEMOGLOBIN 28 pg (27-31); MEAN CORPUSCULAR HGB CONC 33 % (32-36); MEAN CORPUSCULAR VOLUME 84 fL (79.0-98.0); MONOCYTES # (AUTO) 0.6 K/uL (0.0-1.0); MONOCYTES % (AUTO) 12.9 % (1.7-9.3); NEUTROPHILS # (AUTO) 1.8 K/uL (1.8-7.7); NEUTROPHILS % (AUTO) 40.2 % (40.0-70.0); PLATELET COUNT (AUTO) 448 K/uL (130-430); RED BLOOD CELL COUNT(AUTO) 2.66 MIL/uL (4.2-6.2); RED CELL DISTRIBUTION WIDTH 17.2 % (9.0-15.0); WHITE BLOOD COUNT (AUTO) 4.4 K/uL (4.8-10.8)
[2022-07-03 08:25] LABS: CALCIUM 9.7 mg/dL (8.4-11.0); CREATININE 0.62 mg/dL (0.55-1.30)
[2022-07-03 08:31] VITALS: BP_SYST 136
[2022-07-03] MEDS: DOCUSATE SODIUM 100 MG CAPSULE PO SCH ×2 (09:01→21:09)
[2022-07-03] MEDS: SUCRALFATE 1 GM TABLET PO SCH ×2 (09:01→17:00)
[2022-07-03] MEDS: LOSARTAN POTASSIUM 50 MG TABLET (COZAAR) PO SCH ×2 (09:03→21:13)
[2022-07-03] MEDS: FERROUS SULFATE 325 MG TABLET.DR PO SCH ×2 (09:04→21:14)
[2022-07-03] MEDS: METOPROLOL TARTRATE 50 MG TABLET PO SCH ×2 (09:06→21:14)
[2022-07-03] MEDS: ASCORBIC ACID 500 MG TABLET PO SCH ×2 (09:06→21:09)
[2022-07-03] MEDS: GABAPENTIN 400 MG CAPSULE PO SCH ×3 (09:10→21:09)
[2022-07-03] MEDS: NICOTINE 21 MG/24 HR PATCH.TD24 TD SCH (09:10)
[2022-07-03] MEDS: MUPIROCIN 2% TOPICAL OINTMENT 22 GM NS SCH (09:13)
[2022-07-03] MEDS: QUEtiapine FUMARATE 100 MG TABLET PO SCH ×2 (09:15→21:09)
[2022-07-03] MEDS: DEUTETRABENAZINE PO SCH (09:15)
[2022-07-03] MEDS: amLODIPine BESYLATE 10 MG TABLET PO SCH (09:15)
[2022-07-03 11:31] VITALS: BP_SYST 131
[2022-07-03] MEDS: MICAFUNGIN SODIUM 150 MG in NS 100 ML IV SCH (14:00)
[2022-07-03 16:04] VITALS: BP_SYST 158
--- NOTE | 2022-07-03 16:57 | NUR ---
DR. Reynolds wasnt happy to know that the patient NOT on G TUBE feeding. He said to continue the feeding through G TUBE feeding and full liquid Diet.
[2022-07-03] MEDS: BUDESONIDE 0.5 MG/2 ML AMPUL.NEB INH SCH (19:00)
[2022-07-03 20:00] VITALS: BP_SYST 148
[2022-07-03] MEDS: MIRTAZAPINE 15 MG TABLET PO SCH (21:10)
[2022-07-03] MEDS: DOXEPINE (SINEQUAN) 25 MG CAP PO SCH (21:14)
[2022-07-04 00:54] VITALS: BP_SYST 137
[2022-07-04] MEDS: HYDROcodone/ACETAMIN 5-325 MG TAB (NORCO/ VICODIN) PO PRN (02:57)
--- NOTE | 2022-07-04 06:27 | NUR ---
Pt refused to have her fluids running. she stated she needed a break.
[2022-07-04] MEDS: SUCRALFATE 1 GM TABLET PO SCH ×2 (07:00→17:32)
--- NOTE | 2022-07-04 07:45 | NUR ---
Opening Notes Pt. was sleeping, no signs of acute distress. Fall precautions in place, pt. is refusing to have iv fluids running at this times states that she wants to keep sleeping. Audible wheezing heard, called RT for prn breathing treatment, O2 sat stable on room air. Pt. has been refusing breathing treatments but educated pt. on importance of deep breathing.
[2022-07-04 08:05] VITALS: BP_SYST 111
[2022-07-04] MEDS: D5NS 1,000 ML IV SCH ×2 (08:15→18:15)
--- NOTE | 2022-07-04 08:47 | NUR ---
Patient is too sleepy to participate at this time.
[2022-07-04] MEDS: DEUTETRABENAZINE PO SCH ×2 (09:00→20:50)
[2022-07-04] MEDS: GABAPENTIN 400 MG CAPSULE PO SCH ×3 (10:01→20:48)
[2022-07-04] MEDS: METOPROLOL TARTRATE 50 MG TABLET PO SCH ×2 (10:01→20:49)
[2022-07-04] MEDS: LOSARTAN POTASSIUM 50 MG TABLET (COZAAR) PO SCH ×2 (10:01→20:49)
[2022-07-04] MEDS: ASCORBIC ACID 500 MG TABLET PO SCH ×2 (10:02→20:48)
[2022-07-04] MEDS: NICOTINE 21 MG/24 HR PATCH.TD24 TD SCH (10:02)
[2022-07-04] MEDS: DOCUSATE SODIUM 100 MG CAPSULE PO SCH ×2 (10:02→20:48)
[2022-07-04] MEDS: FERROUS SULFATE 325 MG TABLET.DR PO SCH ×2 (10:02→20:48)
[2022-07-04] MEDS: amLODIPine BESYLATE 10 MG TABLET PO SCH (10:02)
[2022-07-04] MEDS: QUEtiapine FUMARATE 100 MG TABLET PO SCH ×2 (10:02→20:47)
[2022-07-04] MEDS: BUDESONIDE 0.5 MG/2 ML AMPUL.NEB INH SCH (10:25)
[2022-07-04] MEDS: ACETAMINOPHEN 650 MG/20.3 ML UDC PO PRN (12:24)
[2022-07-04 13:02] VITALS: BP_SYST 140
--- NOTE | 2022-07-04 14:00 | NUR ---
CM: s/w Natalya, clinical nurse review from [facility]; said the request auth is not approved for [facility]. The patient's insurance benefits contains specific contracts and does not have out of area placement benefits. The snf distance must be within 30 miles from the pt's resident ( [facility]). She then referred to [facility] to manage the placement.
--- NOTE | 2022-07-04 16:29 | NUR ---
Midshift note: Pt. is AAOx3, no signs of acute distress, fall precautions in place, aspiration precautions in place.
[2022-07-04 16:55] VITALS: BP_SYST 130
--- NOTE | 2022-07-04 18:22 | NUR ---
Pt. is now allowing IVF to be started, attempted to flush iv line but the iv catheter was bent and partially pulled out. Pt. refused to have new iv placed, wants to eat dinner first. Will endorse to ip architect RN to place new iv.
--- NOTE | 2022-07-04 19:30 | NUR ---
Opening note Pt is awake lying in bed, a/o x3. No s/s of respiratory distress. Breathing even and unlabored on RA. GT feeding running at ordered rate. Fall and safety precautions in place with bed in lowest position, bed alarm on, and call light within reach
[2022-07-04 20:00] VITALS: BP_SYST 120
[2022-07-04] MEDS: MIRTAZAPINE 15 MG TABLET PO SCH (20:48)
[2022-07-04] MEDS: DOXEPINE (SINEQUAN) 25 MG CAP PO SCH (20:48)
[2022-07-04] MEDS: KETOROLAC TROMETHAMINE 15 MG VIAL IVP PRN (23:06)
[2022-07-04] MEDS: INSULIN REGULAR, HUMAN 100 UNITS/ML, 3 ML VIAL (humuLIN R) SUBCUT PRN (23:11)
--- NOTE | 2022-07-05 00:15 | NUR ---
Rounds Pt resting in bed, eyes closed. No s/s of acute distress. Fall and safety checks in place
[2022-07-05] MEDS: ACETAMINOPHEN 650 MG/20.3 ML UDC PO PRN ×3 (01:13→21:31)
[2022-07-05 01:56] VITALS: BP_SYST 124
[2022-07-05] MEDS: D5NS 1,000 ML IV SCH ×2 (04:15→18:48)
[2022-07-05] MEDS: SUCRALFATE 1 GM TABLET PO SCH ×2 (05:57→17:28)
[2022-07-05] MEDS: KETOROLAC TROMETHAMINE 15 MG VIAL IVP PRN ×3 (05:57→18:48)
--- NOTE | 2022-07-05 06:36 | NUR ---
Closing note Pt awake lying in bed. C/o pain, administered PRN pain medication. GT intact with feeding running at ordered rate. IV site intact and patent. Latest BS 120. All needs met throughout shift. Fall and safety precautions in place with bed in lowest position, bed alarm on, and call light within reach
[2022-07-05 06:44] LABS: BASOPHILS # (AUTO) 0.1 K/uL (0.0-0.2); BASOPHILS % (AUTO) 1.1 % (0.0-2.0); EOSINOPHILS # (AUTO) 0.1 K/uL (0.0-0.4); EOSINOPHILS % (AUTO) 2.3 % (0.0-4.0); HEMATOCRIT 24.6 % (36-48); HEMOGLOBIN 8.2 g/dL (12.0-16.0); LYMPHOCYTES # (AUTO) 2.1 K/uL (1.0-5.5); LYMPHOCYTES % (AUTO) 35.9 % (20.5-51.5); MEAN CORPUSCULAR HEMOGLOBIN 28 pg (27-31); MEAN CORPUSCULAR HGB CONC 33 % (32-36); MEAN CORPUSCULAR VOLUME 82 fL (79.0-98.0); MONOCYTES # (AUTO) 1.1 K/uL (0.0-1.0); MONOCYTES % (AUTO) 18.7 % (1.7-9.3); NEUTROPHILS # (AUTO) 2.5 K/uL (1.8-7.7); PLATELET COUNT (AUTO) 562 K/uL (130-430); RED BLOOD CELL COUNT(AUTO) 2.98 MIL/uL (4.2-6.2); RED CELL DISTRIBUTION WIDTH 16.9 % (9.0-15.0); WHITE BLOOD COUNT (AUTO) 5.9 K/uL (4.8-10.8)
[2022-07-05] MEDS: BUDESONIDE 0.5 MG/2 ML AMPUL.NEB INH SCH (07:00)
[2022-07-05 07:58] VITALS: BP_SYST 139
--- NOTE | 2022-07-05 08:00 | NUR ---
Opening note Pt. is AAOx4, no signs of acute distress. Tube feeding in place and running, aspiration precautions in place. Fall precautions in place. Encouraged pt. to shift weight at least every 2 hours. Will continue to monitor.
[2022-07-05 08:37] VITALS: BP_SYST 139
[2022-07-05] MEDS: DEUTETRABENAZINE PO SCH ×2 (09:00→21:00)
--- NOTE | 2022-07-05 09:45 | NUR ---
ORDNANCE ENGINEERING TECHNICIAN DIANE Jensen responded to a request for Social Service support from AMBERLY Meraz who shared patient is requesting Plugging Machine Operator. DIANE Jensen met with patient at bedside. ACSW reintroduced self and patient was open to contact. Patient requested to be transferred to "rehab to move around". ACSW informed her Case Management department is continuing efforts to locate and secure placement to address patient's needs. Patient also requested her sons phone numbers. Due to her sons and daughter in law in the past expressing desire to not speak to her, ACSW informed patient that permission would need to be obtained prior to providing number. ACSW will continue to be available as needed
[2022-07-05] MEDS: LOSARTAN POTASSIUM 50 MG TABLET (COZAAR) PO SCH ×2 (09:47→21:34)
[2022-07-05] MEDS: amLODIPine BESYLATE 10 MG TABLET PO SCH (09:48)
[2022-07-05] MEDS: DOCUSATE SODIUM 100 MG CAPSULE PO SCH ×2 (09:49→21:32)
[2022-07-05] MEDS: QUEtiapine FUMARATE 100 MG TABLET PO SCH ×2 (09:49→21:34)
[2022-07-05] MEDS: METOPROLOL TARTRATE 50 MG TABLET PO SCH ×2 (09:49→21:32)
[2022-07-05] MEDS: GABAPENTIN 400 MG CAPSULE PO SCH ×3 (09:49→21:32)
[2022-07-05] MEDS: FERROUS SULFATE 325 MG TABLET.DR PO SCH ×2 (09:50→21:33)
[2022-07-05] MEDS: ASCORBIC ACID 500 MG TABLET PO SCH ×2 (09:50→21:33)
[2022-07-05] MEDS: NICOTINE 21 MG/24 HR PATCH.TD24 TD SCH (09:50)
--- NOTE | 2022-07-05 10:11 | NUR ---
Pt. is AAOx4, no signs of acute distress, reporting pain, paged Dr. Reynolds regarding pts. pain medications. pt states they are not controlling her pain. PRN acetaminophen given with no relief, pt. states pain is located in her back and generalized, waiting for callback.
--- NOTE | 2022-07-05 10:13 | NUR ---
Spoke to pts. daughter in law Ada phone number [phone], confirmed that it was ok to share the number with the patient. Phone number given to pt. and pt. is currently speaking with family
[2022-07-05 12:12] VITALS: BP_SYST 138
--- NOTE | 2022-07-05 12:45 | NUR ---
Discharge Planning: DCP faxed pt referral to [facility] [phone], [facility] [phone], [facility] [phone] [facility] to follow up. Addendum: 07/05/22 at 1621 by Cielo Hartman DP [facility] [phone]-declined, [facility] [phone]-[facility] to follow up, [facility] [phone] [facility] to follow up
[2022-07-05] MEDS ORDERED: PROMETHAZINE-DM 6.25 MG-15 MG/5 ML UDC PO PRN (16:00)
[2022-07-05 16:20] VITALS: BP_SYST 136
[2022-07-05] MEDS: DOXEPINE (SINEQUAN) 25 MG CAP PO SCH (21:33)
[2022-07-05] MEDS: MIRTAZAPINE 15 MG TABLET PO SCH (21:33)
[2022-07-06] MEDS: KETOROLAC TROMETHAMINE 15 MG VIAL IVP PRN ×5 (00:01→20:52)
[2022-07-06] MEDS: D5NS 1,000 ML IV SCH ×3 (00:15→20:15)
[2022-07-06 01:43] VITALS: BP_SYST 140
[2022-07-06] MEDS: SUCRALFATE 1 GM TABLET PO SCH ×2 (06:18→17:00)
[2022-07-06] MEDS: BUDESONIDE 0.5 MG/2 ML AMPUL.NEB INH SCH ×3 (07:00→19:00)
[2022-07-06 09:00] VITALS: BP_SYST 130
[2022-07-06] MEDS: FERROUS SULFATE 325 MG TABLET.DR PO SCH ×2 (09:00→22:28)
[2022-07-06] MEDS: DEUTETRABENAZINE PO SCH ×2 (09:00→21:00)
[2022-07-06] MEDS: GABAPENTIN 400 MG CAPSULE PO SCH ×3 (09:32→22:28)
[2022-07-06] MEDS: NICOTINE 21 MG/24 HR PATCH.TD24 TD SCH (09:32)
[2022-07-06] MEDS: ASCORBIC ACID 500 MG TABLET PO SCH ×2 (09:32→22:29)
[2022-07-06] MEDS: DOCUSATE SODIUM 100 MG CAPSULE PO SCH ×2 (09:33→22:28)
[2022-07-06] MEDS: METOPROLOL TARTRATE 50 MG TABLET PO SCH ×2 (09:33→22:29)
[2022-07-06] MEDS: LOSARTAN POTASSIUM 50 MG TABLET (COZAAR) PO SCH ×2 (09:33→22:30)
[2022-07-06] MEDS: amLODIPine BESYLATE 10 MG TABLET PO SCH (09:33)
[2022-07-06] MEDS: QUEtiapine FUMARATE 100 MG TABLET PO SCH ×2 (09:40→22:28)
--- NOTE | 2022-07-06 11:26 | NUR ---
Discharge Planning: JOSH spoke to Adamaris at [facility] [phone] her aware [facility] [phone] accepting patient pending BRY. Adamaris will call with transport auth. JOSH to follow up. Addendum: 07/06/22 at 1134 by Cielo Hartman DP JOSH made CM aware a covid rapid is being requested, and requesting vaccination record.
[2022-07-06 12:27] VITALS: BP_SYST 143
[2022-07-06 16:11] VITALS: BP_SYST 120
--- NOTE | 2022-07-06 19:30 | NUR ---
ASSUMED CARE OF PATIENT AWAKE, ALERT. ORIENTED. VSS, AFEBRILE.INSTRUCTED IN PLAN OF CARE. ALL QUESTIONS ANSWERED. CALL LIGHT IN REACH. SIDE RAILS UP. CONTINUE TO MONITOR.
[2022-07-06 20:00] VITALS: BP_SYST 128
[2022-07-06] MEDS: MIRTAZAPINE 15 MG TABLET PO SCH (22:29)
[2022-07-06] MEDS: DOXEPINE (SINEQUAN) 25 MG CAP PO SCH (22:29)
[2022-07-07 01:41] VITALS: BP_SYST 141
[2022-07-07] MEDS: KETOROLAC TROMETHAMINE 15 MG VIAL IVP PRN ×2 (03:03→15:45)
[2022-07-07 04:00] VITALS: BP_SYST 130
[2022-07-07] MEDS: traMADol HCL HCL 50 MG TABLET (ULTRAM) PO PRN ×2 (05:01→11:03)
[2022-07-07] MEDS: D5NS 1,000 ML IV SCH ×2 (06:15→15:46)
[2022-07-07] MEDS: BUDESONIDE 0.5 MG/2 ML AMPUL.NEB INH SCH ×2 (07:00→19:00)
[2022-07-07] MEDS: SUCRALFATE 1 GM TABLET PO SCH ×2 (07:35→17:00)
--- NOTE | 2022-07-07 07:36 | NUR ---
PHYSICAL THERAPY CO-SIGN The Physical Therapy Progress Notes documented by Lab Manager have been reviewed. Reviewed/Co-Signed by: Tj Walton Documentation Done by: NASIM PINEDA PTA Addendum: 07/07/22 at 0737 by Tj Walton PT Amended: Links added.
--- NOTE | 2022-07-07 08:00 | NUR ---
PATIENT RESTING IN BED, VSS, AFEBRILE, DENIES ANY PAIN.WAS MEDICATED ORDERED WITH TORADOL 15MG FOR PAIN AND WITH ULTRAM. PAIN WAS RELIEVED WITH MEDICATION ORDERED. IVF INFUSING ORDERED. REPORT GIVEN TO ONCOMING RN. ALL QUESTIONS ANSWERED.
[2022-07-07 08:10] VITALS: BP_SYST 126
[2022-07-07 08:27] LABS: BASOPHILS # (AUTO) 0.1 K/uL (0.0-0.2); EOSINOPHILS # (AUTO) 0.3 K/uL (0.0-0.4); EOSINOPHILS % (AUTO) 3.5 % (0.0-4.0); HEMOGLOBIN 8.4 g/dL (12.0-16.0); LYMPHOCYTES # (AUTO) 2.4 K/uL (1.0-5.5); LYMPHOCYTES % (AUTO) 33.1 % (20.5-51.5); MEAN CORPUSCULAR HEMOGLOBIN 27 pg (27-31); MEAN CORPUSCULAR HGB CONC 33 % (32-36); MEAN CORPUSCULAR VOLUME 84 fL (79.0-98.0); MONOCYTES # (AUTO) 1.2 K/uL (0.0-1.0); MONOCYTES % (AUTO) 17.3 % (1.7-9.3); NEUTROPHILS # (AUTO) 3.2 K/uL (1.8-7.7); NEUTROPHILS % (AUTO) 45.1 % (40.0-70.0); PLATELET COUNT (AUTO) 583 K/uL (130-430); RED BLOOD CELL COUNT(AUTO) 3.11 MIL/uL (4.2-6.2); RED CELL DISTRIBUTION WIDTH 17.3 % (9.0-15.0); WHITE BLOOD COUNT (AUTO) 7.2 K/uL (4.8-10.8)
[2022-07-07] MEDS: DEUTETRABENAZINE PO SCH (09:00)
[2022-07-07] MEDS: FERROUS SULFATE 325 MG TABLET.DR PO SCH (09:00)
[2022-07-07] MEDS: GABAPENTIN 400 MG CAPSULE PO SCH ×2 (10:28→15:45)
[2022-07-07] MEDS: ASCORBIC ACID 500 MG TABLET PO SCH (10:28)
[2022-07-07] MEDS: QUEtiapine FUMARATE 100 MG TABLET PO SCH (10:28)
[2022-07-07] MEDS: NICOTINE 21 MG/24 HR PATCH.TD24 TD SCH (10:28)
[2022-07-07] MEDS: DOCUSATE SODIUM 100 MG CAPSULE PO SCH (10:28)
[2022-07-07] MEDS: LOSARTAN POTASSIUM 50 MG TABLET (COZAAR) PO SCH (10:28)
[2022-07-07] MEDS: amLODIPine BESYLATE 10 MG TABLET PO SCH (10:29)
[2022-07-07] MEDS: METOPROLOL TARTRATE 50 MG TABLET PO SCH (10:29)
[2022-07-07 11:05] VITALS: BP_SYST 111; BP_SYST 118
--- NOTE | 2022-07-07 11:16 | NUR ---
dispo code 03
--- NOTE | 2022-07-07 11:53 | NUR ---
Nutrition F/U Admitting Diagnosis: Complete Rectal Prolapse Medical Hx: Per EMR: 66 YOF who transferred from [facility] for evaluation/ treatment of rectal prolapse. Visual NFPE completed d/t patient falling asleep during interview plus seen with blankets covering the bottom half of her body: Moderate - Severe fat loss: orbitals and triceps; Moderate - Severe muscle wasting: temples, clavicles, and shoulders. PMHx: long history of psychological disorder, chronic smoker, COPD, anemia. Sx Hx: tummy tuck, silicone breast implants. Hospital course updates: S/p code stroke on 06/08/22. S/p swallow eval 06/10/22: ST recommends puree NTL, however alt means of nutrition necessary if pt continues to refuse foods. Per Dr Barker on 06/10/22: patient choked on food when he tried to feed her, MD recs GT. Pt is s/p PEG placement 06/13; seen by ST again 06/15, ST rec for puree/NTL for oral grat and 1:1 feeder/full aspiration precautions. Pt is s/p GT replacement 06/21. Per MD notes 06/26: recent onset pancytopenia, likely bone marrow suppression, by fungemia & possible drug-induced bone marrow suppression. TST =6% suggests iron deficiency, pt on iron supp; anemia of chronic dz & iron deficiency w/ B12 normal. Subjective Information: RD reviewed pt's current EMR including diet Hx, physician notes, nursing notes, pertinent labs/meds/procedures, care trends, and care activity. RD rounded to patient room and spoke with patient at bedside. Pt reports she requested to change to a full liquid diet (07/03 FLD ordered per MD) as she gets "tired of chewing," reports she likes Ensure ONS, feels better overall and has no complaints. Per EMR review, pt consuming 75% of meals on average. GTF of Jevity 1.5 was infusing @ 45 mL/hr --new goal rate (order dhanged 07/03 per MD). Patient tolerating TF with 0mL GRV per nursing documentation. LBM was soft/normal. LBM documented 07/07 x 1. Ht: 5'8" Wt: 126#/57.3 kg (05/16) IBW: 140#/63.6 kg UBW: 150# (1 year ago) per pt CBW: 127# per bedscale wt taken by RD 06/03 Current Diet Order/Nutrition Support: full liquid diet x4 days & Jevity 1.5 at 40 ml/hr + Free Water Flush 150 mL via GT x 4 days Medications: D5NS @ 100 ml/h provides 408 Kcals, Regular ISS, Remeron, Colace, FeSO4 BID, vitamin C 500 mg BID Labs: POC glucose range (07/05-07/06): 100-145 H Weight Status: Underweight (BMI <21 for 65+) GI symptoms: None, per EMR/patient 06/26 Last BM: x1 documented 06/26 -- no BM documented Skin Integrity Comment: Venancio 11: no skin problem identified LUE 1+ pitting Current % PO Fair-Good (improved) 75% x 12 meals Estimated Energy Expenditure (kcals/day) 7563-9337 (25-30 kcal/kg IBW d/t GERIAT, BMI <21, Sx healing) Estimated Protein Required (g/day) 64-96 (1-1.5 g/kg IBW d/t GERIAT, BMI <21, Sx healing) Estimated Fluid Required (l/day) 1.6-1.9 (1mL/kcal for maintenance) Problem/Etiology/Signs/Symptoms * Severe unintentional weight loss r/t suspected long-term inadequate oral intake a/e/b patient endorses 24lb and 16% weight loss x 6 months (Ongoing) * Inadequate oral intake r/t clear liquid diet order a/e/b CLD provides 1531 kcal/day and 50g pro/day (Resolved) * Swallowing difficulty r/t dysphagia a/e/b ST evaluation, patient choking on foods, diet order (Resolved) Expected Outcomes/Goals - PO intake provides >85% estimated nutrient needs, slow wt gain w/in 1-2lbs per wk, skin integrity, nutrition-related labs trending WNL, improvements in bowel function, BM q1-3 days Dietitian Recommendations * Continue full liquid diet per patient preference * Per MD order, Jevity1.5 at 40 ml/hr x 24h (total volume 960 mL), Free Water Flush: 150 ml Q4h via GT Provides daily: 1440 kcals, 61 gm protein, 1630 mL water from TF + FWF Meets: 75% upper estimated kcal needs, 64% upper estimated PRO needs, 86% of upper estimated fluid needs * Ensure High Protein BID (ONS provides 320 kcals and 32g protein) * Recommend Vitamin C supplementation for increased Fe absorption Moderate Risk: F/U 3-5 days
--- NOTE | 2022-07-07 12:53 | NUR ---
Dietitian Recommendations * Continue full liquid diet per patient preference * Per MD order, Jevity1.5 at 40 ml/hr x 24h (total volume 960 mL), Free Water Flush: 150 ml Q4h via GT Provides daily: 1440 kcals, 61 gm protein, 1630 mL water from TF + FWF Meets: 75% upper estimated kcal needs, 64% upper estimated PRO needs, 86% of upper estimated fluid needs * Ensure High Protein BID (ONS provides 320 kcals and 32g protein) * Recommend Vitamin C supplementation for increased Fe absorption PS, RD
[2022-07-07 15:10] VITALS: BP_SYST 133
--- NOTE | 2022-07-07 15:23 | NUR ---
Discharge Planning: Per Adamaris with [facility] transport was arranged with [facility] [phone] BLS 6:00pm to [facility] # to report [phone] Rm 5B. DCP made CM and charge nurse aware and patient packet taken to nurse station. Disposition 03
[2022-07-07] MEDS ORDERED: LORazepam 2 MG/ML VIAL IVP ONE (17:00)
--- NOTE | 2022-07-07 18:01 | NUR ---
report given to Dilma Franco at [facility]. pt ready for transportation
[2022-07-07 18:02] VITALS: BP_SYST 133
--- NOTE | 2022-07-07 19:24 | NUR ---
bedside report given. pt still here waiting for ambulance garbage pick up worker. endorse to night rn to remove iv before pt is to be dc
--- NOTE | 2022-07-07 19:58 | NUR ---
[facility] CALLED TO FOLLOW UP TRANSPORT. [address]. PER LEENA, [facility] IS BACKED UP THE WHOLE AFTERNOON AND WILL NOT GET TO SOFTWARE INTEGRATION DEVELOPER PATIENT UNTIL 9PM
[2022-07-07] MEDS ORDERED: HALOPERIDOL LACTATE 5 MG/ML VIAL IM ONE (20:30)
--- NOTE | 2022-07-07 22:12 | NUR ---
D/C Patient Patient given medication reconciliation form and D/C instructions.Pt transfered to another facility. Exit Care provided. Patient verbalized understanding. MD discussed with patient the results and treatment provided.Pt is bedbound. Patient in stable condition, ID band removed. IV catheter removed, intact and dressing applied, no active bleeding. Patient educated on pain management. [facility] All belongings sent with patient.
== END 2022-07-07 21:00 | DRG 853 ==
LOC: SED 17:22 → SMU 21:52 → SIC 05-23 21:24 → STU 05-25 15:41 → SMU 06-20 16:21
PROVIDERS: ADMIT Family Medicine; ATTEND Family Medicine
PROC: 0DJD8ZZ Inspection of Lower Intestinal Tract, Via Natural or Artificial Opening Endoscopic (ICD-10-PCS; principal; 2022-05-18 12:30)
PROC: 0DSP0ZZ Reposition Rectum, Open Approach (ICD-10-PCS; 2022-05-23)
PROC: 0DB78ZX Excision of Stomach, Pylorus, Via Natural or Artificial Opening Endoscopic, Diagnostic (ICD-10-PCS; 2022-06-13)
PROC: 0DH68UZ Insertion of Feeding Device into Stomach, Via Natural or Artificial Opening Endoscopic (ICD-10-PCS; 2022-06-13)
PROC: 0D20XUZ Change Feeding Device in Upper Intestinal Tract, External Approach (ICD-10-PCS; 2022-06-21)
PROC: 0T9B70Z Drainage of Bladder with Drainage Device, Via Natural or Artificial Opening (ICD-10-PCS; 2022-06-21)
DX: A41.9 Sepsis, unspecified organism (principal); E43 Unspecified severe protein-calorie malnutrition; J15.212 Pneumonia due to Methicillin resistant Staphylococcus aureus; J96.90 Respiratory failure, unspecified, unspecified whether with hypoxia or hypercapnia; Q43.8 Other specified congenital malformations of intestine; K94.23 Gastrostomy malfunction; K31.6 Fistula of stomach and duodenum; E46 Unspecified protein-calorie malnutrition; G93.40 Encephalopathy, unspecified; I82.622 Acute embolism and thrombosis of deep veins of left upper extremity; N39.0 Urinary tract infection, site not specified; K62.3 Rectal prolapse; F41.9 Anxiety disorder, unspecified; J44.9 Chronic obstructive pulmonary disease, unspecified; R13.10 Dysphagia, unspecified; N81.3 Complete uterovaginal prolapse; R31.29 Other microscopic hematuria; Z20.822 Contact with and (suspected) exposure to COVID-19; N73.6 Female pelvic peritoneal adhesions (postinfective); G24.01 Drug induced subacute dyskinesia; K29.70 Gastritis, unspecified, without bleeding; I10 Essential (primary) hypertension; F17.200 Nicotine dependence, unspecified, uncomplicated; D64.9 Anemia, unspecified; T50.995A Adverse effect of other drugs, medicaments and biological substances, initial encounter; Z90.49 Acquired absence of other specified parts of digestive tract; Z98.82 Breast implant status; Z79.899 Other long term (current) drug therapy; Z79.2 Long term (current) use of antibiotics; Y92.89 Other specified places as the place of occurrence of the external cause
CPT/HCPCS: 36415; 36600; 43239; 45378; 70450-TC; 71045; 74018; 74240-TC; 76376; 76700-TC; 80048; 80053; 80074; 80076; 80202; 81000; 82140; 82272; 82607; 82728; 82746; 82803-TC; 82962; 82977; 83516; 83540; 83550; 83605; 83690; 83735; 84100; 84478; 84484; 85007; 85025; 85027; 85044; 85610-TC; 85651-TC; 85730-TC; 86022; 86038; 86140; 86886; 86900; 86901; 87040; 87070-TC; 87081; 87086; 87186-TC; 87205-TC; 92610-GN; 93005; 93306; 93971; 94002; 94003; 94640; 94760; 96361; 96374; 96375; 96376; 97110-GP; 97116-GP; 97530-GP; 99285; C1751; G0378; J0360; J0690; J0692; J0696; J1170; J1450; J1630; J1644; J1650; J1815; J1885; J2060; J2175; J2248; J2250; J2270; J2405; J2704; J2930; J3010; J3370; J3475; J3480; J3490; J7040; J7042; J7050; J7060; J7120; J7131; J7512; J7612; J7626; Q0163; Q9963